=== PATIENT | female | born 1935 | race Caucasian/White ===

== ENCOUNTER 2023-11-04 11:46 | Emergency (ER) | payer MEDICARE, BC, SELFPAY ==
[2023-11-04 11:50] VITALS: BP 162/78; PULSE 68; RESP 16; TEMP 35.7; O2SAT 97; BMI 26.0
--- NOTE | 2023-11-04 12:48 | ED_ITS ---
HPI - Abdominal Pain General Chief Complaint: Abdominal Pain Stated Complaint: Lower R abdominal/side/back pain Time Seen by Provider: 11/04/23 12:21 History of Present Illness HPI narrative: This 87-year-old female comes in to clinic today reporting pain in her right lower quadrant. She was sent here for further evaluation. She states that she has been having pain on and off like this for the past several months but it has become more intense and constant over the past day or so. She also reports some discomfort in her right flank area. She does not report any nausea, vomiting, diarrhea, dysuria, fever, or altered bowel function. She arrives with reassuring vital signs. Related Data Home Medications ?Medication ?Instructions ?Recorded ?Confirmed amlodipine 10 mg tablet mg PO DAILY 03/03/22 03/03/22 atorvastatin 10 mg tablet mg PO .Bedtime 03/03/22 03/03/22 cholecalciferol (vitamin D3) 25 25 mcg PO QDAY 03/03/22 11/04/23 mcg (1,000 unit) tablet (Vitamin D3) ferrous sulfate 325 mg (65 mg mg PO DAILY 03/03/22 03/03/22 iron) tablet fexofenadine 60 mg tablet 60 mg PO BID 03/03/22 11/04/23 ibandronate 150 mg tablet 150 mg PO .Every 30 Days 03/03/22 11/04/23 lidocaine 5 % topical patch 1 patch topical .Every 24 Hours 03/03/22 03/03/22 lisinopril 40 mg tablet mg PO .Bedtime 03/03/22 03/03/22 metoprolol succinate 200 mg mg PO DAILY 03/03/22 03/03/22 tablet,extended release 24 hr omeprazole 20 mg capsule,delayed mg PO DAILY 03/03/22 03/03/22 release vitamin B complex 1 cap PO QDAY 03/03/22 03/03/22 vitamin E mixed 400 unit capsule unit PO 03/03/22 03/03/22 Allergies Allergy/AdvReac Type Severity Reaction Status Date / Time ibuprofen AdvReac Gastrointestinal Verified 11/04/23 14:07 Upset Review of Systems Status of ROS Reports: 10 or more systems reviewed and unremarkable except as noted in History and below Narrative Constitutional: No fevers, no weight gain or loss. Eyes: No discharge. No vision changes. HENT: No congestion, no sore throat, no ear pain. Cardiovascular: No chest pain, no palpitations. Respiratory: No shortness of breath, no wheezes, no cough. Gastrointestinal: No vomiting, no diarrhea. Abdominal pain and right flank pain as described above. Genitourinary: No dysuria, no hematuria. Musculoskeletal: Normal range of motion. Skin: No rashes, no pruritis. Neurological: No dizziness, weakness, sensory change, speech change. Endo/Heme/Allergies: No bruising or bleeding. No polydipsia. Pysch: no suicidality, no anxiety, no insomnia. All other systems reviewed and are negative. [facility] Medical History (Updated 11/04/23 @ 15:09 by Jacob Chang MD) Ventricular premature beats ?I49.3 - Ventricular premature depolarization (ICD-10) Uncontrolled hypertension ?I10 - Essential (primary) hypertension (ICD-10) Iron deficiency anemia ?D50.9 - Iron deficiency anemia, unspecified (ICD-10) Hyponatremia ?E87.1 - Hypo-osmolality and hyponatremia (ICD-10) Compression fracture of L3 vertebra ?S32.030A - Wedge compression fracture of third lumbar vertebra, initial encounter for closed fracture (ICD-10) Surgical History (Updated 03/04/22 @ 15:19 by Mena Michelle ~ [facility], [facility]) Status post arthroscopic partial medial meniscectomy (02/10/05) ?Z98.890 - Other specified postprocedural states (ICD-10) S/P trigger finger release (02/28/09) ?Z98.890 - Other specified postprocedural states (ICD-10) 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) ?Z96.652 - Presence of left artificial knee joint (ICD-10) Social History (Updated 03/04/22 @ 15:18 by Mena Michelle ~ [facility], [facility]) Smoking Status: Former smoker What tobacco products do you use: cigarettes Smoking quit date/years: >15 years ago Do you use any of these nicotine containing products: None Second hand tobacco smoke exposure: No How often do you have a drink containing alcohol: never AUDIT-C Alcohol total score: 0 Non-prescribed substance use: denies use Exam Narrative: Exam Narrative: Constitutional: Well-developed, well-nourished, no acute distress. HEENT: Normocephalic, atraumatic. Neck: Normal range of motion. Nontender. Supple. Heart: Regular. No murmurs. Normal rate. Intact distal pulses. Lungs: Clear to auscultation. No chest discomfort. No wheezes, rhonchi, or rales. Abdomen: Normal bowel sounds. Tenderness in the right lower quadrant. No rebound tenderness. Genitalia: Deferred. Back: No midline tenderness. Normal range of motion. Extremities: Normal range of motion. No injury. Skin: Intact. No rash. Warm. No erythema or pallor. Neurologic: No altered sensation. No weakness. Alert and oriented. Psychiatric: No suicidality. No anxiety or depression. No insomnia. Nursing notes and vitals signs are reviewed. Const: Vital Signs, click to edit/add: Vital Signs - 24 hr 11/04/23 11:50 Temperature 96.3 F L Pulse Rate [Left P ulse Oximeter] 68 Respiratory Rate 16 Blood Pressure [Le ft Upper Arm] 162/78 H Pulse Oximetry 97 Oxygen Delivery Me thod Room Air Course Vital Signs Vital signs: Initial Vital Signs Temperature 96.3 F L 11/04/23 11:50 Temperature Source Temporal Artery Scan 11/04/23 11:50 Pulse Rate 68 11/04/23 11:50 Pulse Rhythm Regular 11/04/23 11:50 Pulse Strength 3+ Normal 11/04/23 11:50 Respiratory Rate 16 11/04/23 11:50 Blood Pressure 162/78 H 11/04/23 11:50 Blood Pressure Mean 106 H 11/04/23 11:50 Blood Pressure Position Sitting 11/04/23 11:50 Pulse Oximetry 97 11/04/23 11:50 Oxygen Delivery Method Room Air 11/04/23 11:50 Vital Signs Temperature 96.3 F L 11/04/23 11:50 Pulse Rate 68 11/04/23 11:50 Respiratory Rate 16 11/04/23 11:50 Blood Pressure 162/78 H 11/04/23 11:50 Pulse Oximetry 97 11/04/23 11:50 Oxygen Delivery Method Room Air 11/04/23 11:50 Temperature 96.3 F L 11/04/23 11:50 Pulse Rate 68 11/04/23 11:50 Respiratory Rate 16 11/04/23 11:50 Blood Pressure 162/78 H 11/04/23 11:50 Pulse Oximetry 97 11/04/23 11:50 Oxygen Delivery Method Room Air 11/04/23 11:50 MDM - Abdominal Pain MDM Narrative Medical decision making narrative: This patient comes in with right lower quadrant abdominal pain as described above. An IV was established and CT images are obtained. Lab results also or obtained and these returned with normal findings. Her CT scan however shows evidence of a solid mass in the right lower quadrant suspicious for colon cancer. There does not appear to be any direct spread or distant spread on this initial CT imaging. I did contact the surgeon on-call, Dr. Lewis, who recommended colonoscopy for further information from biopsy and staging of the tumor. I did place an order for a colonoscopy and advised the patient to contact her primary physician for ongoing management regarding these matters. The patient states that she is okay to take Tylenol which is sufficient to manage her episodes of discomfort. I did advise her to return if worsening symptoms happen. Lab Data Labs: Lab Results 11/04/23 11/04/23 Range/Units 12:44 13:05 WBC 6.76 (4.50-11.00) K/uL RBC 4.73 (4.00-5.20) m/uL Hgb 12.9 (12.0-16.0) gm/dL Hct 40.3 (33.0-51.0) % MCV 85 (80-100) fL MCH 27 (26-34) pg MCHC 32 (32-36) gm/dL RDW Coeff of [place] 13.3 (11.5-15.5) % Plt Count 295 (140-440) K/uL Neut % (Auto) 69.5 (42.0-72.0) % Lymph % (Auto) 15.7 L (20-44) % Cameron % (Auto) 7.1 (0.0-11.0) % Eos % (Auto) 6.7 (0.0-7.0) % Baso % (Auto) 0.9 (0.0-3.0) % Neut # (Auto) 4.70 (1.7-7.0) K/uL Lymph # (Auto) 1.10 (0.90-2.90) K/uL Cameron # (Auto) 0.50 (0.00-0.90) K/UL Eos # (Auto) 0.45 (0.00-0.50) K/uL Baso # (Auto) 0.06 (0.00-0.30) K/uL Abs Immat Gran (auto) 0.01 (0.00-0.30) K/uL Imm/Tot Granulo (auto) 0.1 % Sodium 137 (135-149) mmol/L Potassium 3.8 (3.6-5.1) mmol/L Chloride 103 (96-114) mmol/L Carbon Dioxide 28 (20-32) mmol/L Anion Gap 6 L (7-15) mEq/L BUN 15 (7-30) mg/dL Creatinine 0.8 (0.5-1.5) mg/dL Estimated Creat Clear 37.80 Estimated GFR 72 ml/min Glucose 102 (60-115) mg/dL Calcium 9.4 (8.4-10.6) mg/dL Urine Color Dark yellow (Yellow) Urine Appearance Clear (Clear) Urine pH 6.0 (5.0-8.5) Ur Specific [place] 1.015 (1.000-1.030) Urine Protein Negative (Negative) Urine Glucose (UA) Negative (Negative) Urine Ketones Negative (Negative) Urine Blood Negative (Negative) Urine Nitrite Negative (Negative) Urine Bilirubin Negative (Negative) Urine Urobilinogen 0.2 (0.2-1.0) Ur Leukocyte Esterase Negative (Negative) Urine RBC 0-2 (0-2) Urine WBC 0-2 (0-5) Ur Squamous Epith Cells Few (None-Few) Urine Bacteria None (None) Imaging Data CT scan - abdomen: Radiologist's impression: 1. Solid enhancing cecal mass consistent with a primary colon cancer. No perforation. 2. Mildly inflamed appendix may be due to secondary obstruction from the cecal mass. 3. Mesenteric adenopathy. 4. Single nonspecific 3 millimeter lung nodule. 5. Enlarging 10 millimeter low-density lesion in the pancreatic head. There is another stable low-density/cystic pancreatic lesion. If further clarification is needed, recommend MR abdomen. Discharge Plan Discharge Clinical Impression: Colon cancer, Abdominal pain Patient Disposition: Home, Self-Care Condition: Unchanged Additional Instructions: Follow-up with primary physician for ongoing management. Colonoscopy is necessary for biopsy and staging. Return if worsening. Prescriptions: No Action ibandronate 150 mg tablet 150 mg PO .Every 30 Days lisinopril 40 mg tablet PO .Bedtime omeprazole 20 mg capsule,delayed release(DR/EC) PO DAILY ferrous sulfate 325 mg (65 mg iron) tablet PO DAILY amlodipine 10 mg tablet PO DAILY metoprolol succinate 200 mg tablet extended release 24 hr PO DAILY atorvastatin 10 mg tablet PO .Bedtime fexofenadine 60 mg tablet 60 mg PO BID vitamin E mixed 400 unit capsule PO cholecalciferol (vitamin D3) [Vitamin D3] 25 mcg (1,000 unit) tablet 25 mcg PO QDAY vitamin B complex Capsule 1 cap PO QDAY lidocaine 5 % adhesive patch,medicated 1 patch topical .Every 24 Hours Follow Up/Referrals: Angela Mott DO [Primary Care Provider] - Stand Alone Forms: [facility] Info Instructions
--- NOTE | 2023-11-04 12:48 | CRLHL7_ITS ---
For Patients: As a result of the 21st Century Cures Act, medical imaging exams and procedure reports are released immediately into your electronic medical record. You may view this report before your referring provider. If you have questions, please contact your health care provider. INDICATION: Right lower quadrant pain for 2 months, now more frequent and severe. COMPARISON: 06/08/1921 TECHNIQUE: CT of the abdomen and pelvis with intravenous contrast. Multiplanar axial, coronal, and sagittal reformats were reconstructed. Contrast: 79 mL Isovue 370. FINDINGS: Lung bases: There is a 3 millimeter subpleural right lower lobe nodule on series 3, image 3. This is unchanged since the prior exam. There is a 3 millimeter subpleural nodule in the right lower lobe on series 3, image 19. That was not definitely seen previously. Liver: Normal. No mass. Gallbladder and bile ducts: Cholecystectomy. [place] effect biliary ductal dilatation with smooth tapering down towards the ampulla. Pancreas: 7 x 10 millimeter low-density lesion in the pancreatic head. This may have been previously present but is much larger on this exam. Very well-circumscribed 1.8 x 2.1 centimeter fluid density lesion in the posterior superior pancreatic head. This is stable since the previous exam. Normal pancreatic parenchymal enhancement. No pancreatitis. The pancreatic duct is not dilated. Spleen: Normal. Adrenal glands: Normal. Kidneys: Normal parenchyma. There is a 5.5 centimeter right renal simple cyst. There is a 3.8 centimeter left renal simple cysts. No solid renal mass. No calculi. No urinary tract dilation. Urinary bladder: Fairly filled at the time of the exam. Pelvis: Senescent appearance of the uterus and both ovaries. Vessels: Atherosclerotic vascular calcifications. Patent mesenteric vessels. Bowel: There is a solid enhancing cecal mass that measures 5.5 x 6.0 x 5.4 centimeters. The appendix is mildly dilated and fluid-filled. There is adjacent inflammatory stranding. There are numerous adjacent enlarged lymph nodes including a large lymph node that is partially necrotic. This lymph node measures 3.6 x 1.9 centimeters on series 2, image 71.. No dilated or inflamed small bowel. Distal colonic diverticulosis without diverticulitis. There is a moderate-sized rectal stool ball. Lymph nodes: Right lower quadrant mesenteric metastatic adenopathy. No gastrohepatic, periportal, retroperitoneal, pelvic, or inguinal adenopathy. Peritoneum: No ascites. No free air. Abdominal wall: No hernia. Bones: No fractures. No focal worrisome bone lesions. Advanced degenerative change in the lumbar spine. IMPRESSION: 1. Solid enhancing cecal mass consistent with a primary colon cancer. No perforation. 2. Mildly inflamed appendix may be due to secondary obstruction from the cecal mass. 3. Mesenteric adenopathy. 4. Single nonspecific 3 millimeter lung nodule. 5. Enlarging 10 millimeter low-density lesion in the pancreatic head. There is another stable low-density/cystic pancreatic lesion. If further clarification is needed, recommend MR abdomen. Please note that all CT scans at this facility use dose modulation, iterative reconstruction, and/or weight-based dosing when appropriate to reduce radiation dose to as low as reasonably achievable. Dictated by Mell Gifford MD @ 11/04/2023 2:22:01 PM (Electronically Signed)
[2023-11-04 12:51] LABS: Appearance Urine Clear (Clear); Bilirubin Urine Negative (Negative); Blood Urine Negative (Negative); Color Urine Dark yellow (Yellow); Glucose Urine Negative (Negative); Ketones Urine Negative (Negative); Leukocyte Esterase Urine Negative (Negative); Nitrite Urine Negative (Negative); Protein Urine Negative (Negative); Specific Gravity Urine 1.015 (1.000-1.030); Urobilinogen Urine 0.2 (0.2-1.0)
[2023-11-04 13:07] LABS: RBC Urine 0-2 (0-2); Squamous Epithelial Cell Urine Few (None-Few); WBC Urine 0-2 (0-5)
[2023-11-04 13:14] LABS: Basophils Absolute Auto 0.06 K/uL (0.00-0.30); Basophils Percent Auto 0.9 % (0.0-3.0); Eosinophils Absolute Auto 0.45 K/uL (0.00-0.50); Eosinophils Percent Auto 6.7 % (0.0-7.0); Hematocrit 40.3 % (33.0-51.0); Hemoglobin* 12.9 gm/dL (12.0-16.0); Immature Granulocytes Abs Auto 0.01 K/uL (0.00-0.30); Immature Granulocytes Pct Auto 0.1 %; Lymphocytes Percent Auto 15.7 % (20-44); Mean Corpuscular HGB Conc 32 gm/dL (32-36); Mean Corpuscular Hemoglobin 27 pg (26-34); Mean Corpuscular Volume 85 fL (80-100); Monocytes Percent Auto 7.1 % (0.0-11.0); Neutrophils Percent Auto 69.5 % (42.0-72.0); Platelet Count* 295 K/uL (140-440); RDW Coefficient of Variation % 13.3 % (11.5-15.5); Red Blood Count 4.73 m/uL (4.00-5.20); White Blood Count* 6.76 K/uL (4.50-11.00)
[2023-11-04 13:16] LABS: Slide Review Reflex No
[2023-11-04 13:26] LABS: Chloride* 103 mmol/L (96-114); Potassium* 3.8 mmol/L (3.6-5.1); Sodium* 137 mmol/L (135-149)
[2023-11-04 13:29] LABS: Anion Gap 6 mEq/L (7-15); Blood Urea Nitrogen* 15 mg/dL (7-30); Calcium* 9.4 mg/dL (8.4-10.6); Carbon Dioxide* 28 mmol/L (20-32); Creatinine* 0.8 mg/dL (0.5-1.5); Estimated Glomerular Filt Rate 72 ml/min; Glucose* 102 mg/dL (60-115)
[2023-11-04 15:26] VITALS: PULSE 69; O2SAT 97
== END 2023-11-04 15:28 | disposition home or self-care (01) ==
PROVIDERS: Emergency Provider Emergency Medicine Emergency Medical Services; PCP Family Medicine
DX: R10.9 Unspecified abdominal pain (principal); C18.9 Malignant neoplasm of colon, unspecified
CPT/HCPCS: 36415; 74177; 80048; 81001; 85025; 99284; 99285; Q9967

== ENCOUNTER 2023-11-11 09:17 | Inpatient (IN) | payer MEDICARE, BC, SELFPAY ==
[2023-11-11] VITALS (7 sets, daily range): BP systolic 153–180; BP diastolic 76–92; PULSE 72–100; RESP 14–20; TEMP 36.3–37; O2SAT 93–98; BMI 26.6; BMI 27.1
[2023-11-11] MEDS: LACTATED RINGERS 1000 ML 1,000 ML IV (10:14)
--- NOTE | 2023-11-11 10:14 | ED_ITS ---
HPI - General Adult General Date Seen: 11/11/23 Chief complaint: Constipation Stated complaint: Abd pain back pain Time Seen by Provider: 11/11/23 09:21 Source: patient Mode of arrival: ambulatory Limitations: no limitations History of Present Illness HPI narrative: Patient is an 87-year-old female presenting to the emergency department for constipation. She states she has not been able to have a normal bowel movement for 2 weeks. She noticed a large amount blood in her stool 2 weeks ago. Had another bowel movement this past Wednesday that she states was small and no blood was seen at that time. She was seen in the ED initially a few weeks ago for this constipation and possible colon cancer was seen on CT scan. It was recommended she have a colonoscopy per General surgery. She is post have this done 2 days ago but was unable to due to nausea and unable to hold down any solids or liquids. She saw her primary care provider at that time and has her new colonoscopy scheduled for this upcoming Wednesday. She states she was recently started some new all stool softeners but does remember what they were. Does states she has been taking stool softeners for an extended period of time due to history of constipation in the past. Also feels like her abdomen is more bloated than normal. Denies fevers, chills, chest pain, shortness of breath, headache, vision changes, weakness, numbness. Related Data Home Medications ?Medication ?Instructions ?Recorded ?Confirmed amlodipine 10 mg tablet 10 mg PO DAILY 03/03/22 11/11/23 atorvastatin 10 mg tablet 10 mg PO HS 03/03/22 11/11/23 cholecalciferol (vitamin D3) 25 25 mcg PO DAILY 03/03/22 11/11/23 mcg (1,000 unit) tablet (Vitamin D3) ferrous sulfate 325 mg (65 mg 65 mg PO DAILY 03/03/22 11/11/23 iron) tablet ibandronate 150 mg tablet 150 mg PO .Every 30 Days 03/03/22 11/11/23 lisinopril 40 mg tablet 40 mg PO DAILY 03/03/22 11/11/23 metoprolol succinate 200 mg 200 mg PO DAILY 03/03/22 11/11/23 tablet,extended release 24 hr omeprazole 20 mg capsule,delayed 20 mg PO DAILY 03/03/22 11/11/23 release fexofenadine 180 mg tablet 180 mg PO DAILY 11/11/23 11/11/23 (Allergy Relief (fexofenadine)) ondansetron 4 mg disintegrating 4 mg PO Q8H PRN nausea 11/11/23 11/11/23 tablet polyethylene glycol 3350 17 8.5 g PO DAILY 11/11/23 11/11/23 gram/dose oral powder tramadol 50 mg tablet 50 mg PO BID PRN pain 11/11/23 11/11/23 Allergies Allergy/AdvReac Type Severity Reaction Status Date / Time ibuprofen AdvReac Gastrointestinal Verified 11/11/23 09:32 Upset Review of Systems Status of ROS: Reports: 10 or more systems reviewed and unremarkable except as noted in History and below [facility] Medical History (Updated 11/12/23 @ 11:10 by Laurel Macias PA-C) GERD (gastroesophageal reflux disease) ?K21.9 - Gastro-esophageal reflux disease without esophagitis (ICD-10) Hyperlipidemia ?E78.5 - Hyperlipidemia, unspecified (ICD-10) Pancreatic lesion ?K86.9 - Disease of pancreas, unspecified (ICD-10) Colonic mass ?K63.89 - Other specified diseases of intestine (ICD-10) Ventricular premature beats ?I49.3 - Ventricular premature depolarization (ICD-10) Uncontrolled hypertension ?I10 - Essential (primary) hypertension (ICD-10) Hyponatremia ?E87.1 - Hypo-osmolality and hyponatremia (ICD-10) Compression fracture of L3 vertebra ?S32.030A - Wedge compression fracture of third lumbar vertebra, initial encounter for closed fracture (ICD-10) Surgical History (Updated 11/11/23 @ 14:45 by Hortensia Polo MD) S/P laparoscopic cholecystectomy ?Z90.49 - Acquired absence of other specified parts of digestive tract (ICD- 10) Status post arthroscopic partial medial meniscectomy (02/10/05) ?Z98.890 - Other specified postprocedural states (ICD-10) S/P trigger finger release (02/28/09) ?Z98.890 - Other specified postprocedural states (ICD-10) 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 Patient lives independently and does all of her housework at home by herself. nonsmoker (quit at age 29), nondrinker (save a glass of wine at [employer]). 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 What is your current living situation?: I presently have a place to live Problems where you live: no known problems Problems where you live details: No known problems In the past 12 months, utilities in danger of being shut off: no In past 12 months, lack of transportation kept you from medical appts, meetings, work, or getting things needed for daily living: no In the past 12 mos, have been you worried that your food would run out before you had money to buy more?: never true In the past 12 mos, the food you bought just didn't last and you didn't have money to buy more?: never true Highest level of school completed/degree received: high school graduate Smoking Status: Former smoker What tobacco products do you use: cigarettes Smoking quit date/years: >15 years ago Do you use any of these nicotine containing products: None Second hand tobacco smoke exposure: No How often do you have a drink containing alcohol: never How often do you have six or more drinks on one occasion: Never AUDIT-C Alcohol total score: 0 Non-prescribed substance use: denies use Caffeine: Yes How often does anyone, including family, friends and others, physically hurt you : never How often does anyone, including family, friends and others, insult or talk down to you: never How often does anyone, including family, friends and others, threaten you with harm: never How often does anyone, including family, friends and others, scream or curse at you: never service: No Exam Narrative: Exam Narrative: Const: Well-nourished, Well-developed, in mild distress Eyes: PERRL, no conjunctival injection, and symmetrical lids HENT: Atraumatic external nose and ears. Moist mucous membranes. Neck: Symmetric, trachea midline, No thyromegaly. CVS: RRR, No murmurs or gallops. Peripheral pulses 2+ and equal in all extremities RESP: Unlabored respiratory effort. Clear to auscultation bilaterally. GI: Nontender/Nondistended, No rebound or guarding. MSK:Extremities w/o deformity, Normal Active ROM Skin: Warm, Dry. No rashes or lesions. Neuro: Normal Muscle tone, No focal neurological deficits. Psych: Awake, Alert, & Oriented x3. Appropriate mood and affect. Const: Vital Signs, click to edit/add: Vital Signs - 24 hr 11/11/23 09:23 Temperature 98.6 F Pulse Rate [Right Pulse Oximeter] 88 Respiratory Rate 14 Blood Pressure [Ri ght Upper Arm] 180/90 H Pulse Oximetry 98 Oxygen Delivery Me thod Room Air Course Vital Signs Vital signs: Initial Vital Signs Temperature 98.6 F 11/11/23 09:23 Temperature Source Temporal Artery Scan 11/11/23 09:23 Pulse Rate 88 11/11/23 09:23 Respiratory Rate 14 11/11/23 09:23 Blood Pressure 180/90 H 11/11/23 09:23 Blood Pressure Mean 120 H 11/11/23 09:23 Blood Pressure Position Sitting 11/11/23 09:23 Pulse Oximetry 98 11/11/23 09:23 Oxygen Delivery Method Room Air 11/11/23 09:23 Vital Signs Temperature 98.6 F 11/11/23 09:23 Pulse Rate 88 11/11/23 09:23 Respiratory Rate 14 11/11/23 09:23 Blood Pressure 180/90 H 11/11/23 09:23 Pulse Oximetry 98 11/11/23 09:23 Oxygen Delivery Method Room Air 11/11/23 09:23 Temperature 96.8 F L 11/12/23 14:50 Pulse Rate 67 11/12/23 14:50 Respiratory Rate 18 11/12/23 14:50 Blood Pressure 141/75 H 11/12/23 14:50 Pulse Oximetry 93 11/12/23 14:50 Oxygen Delivery Method Room Air 11/12/23 14:50 Oxygen Flow Rate 0 11/12/23 12:35 Medications Administered Medications: Generic Name Dose Route Start Last Admin Trade Name Freq PRN Reason Stop Dose Admin Acetaminophen 650 - 975 mg 11/11/23 14:33 11/11/23 21:55 Acetaminophen 325 Mg Tablet PO 975 mg Q6H PRN Administration Amlodipine Besylate 10 mg 11/11/23 15:15 11/12/23 07:27 Amlodipine 10 Mg Tablet PO 10 mg DAILY NIALL Administration Lactated Ringer's 1,000 mls @ 100 mls/hr 11/11/23 14:33 11/12/23 01:36 Lactated Ringers 1000 Ml IV 100 mls/hr .Q10H NIALL Administration Lisinopril 40 mg 11/11/23 15:15 11/12/23 07:27 Lisinopril 20 Mg Tablet PO 40 mg DAILY NIALL Administration Metoprolol Succinate 200 mg 11/11/23 15:54 11/12/23 07:27 Metoprolol Succinate (Xl) 100 Mg Tab PO 200 mg DAILY NIALL Administration Morphine Sulfate 4 mg 11/11/23 15:15 11/12/23 14:37 Morphine 4 Mg/Ml Inj IVP 4 mg Q4H PRN Administration abdominal pain Sodium Chloride 5 ml 11/11/23 21:00 11/12/23 07:31 Sodium Chloride 0.9 % (Flush) 10 Ml Syringe IVF 5 ml BID NIALL Administration Discontinued Medications Generic Name Dose Route Start Last Admin Trade Name Karriq PRN Reason Stop Dose Admin Bupivacaine HCl 30 ml 11/12/23 09:39 11/12/23 09:08 Bupivacaine 0.25% 30 Ml INJECTION 11/12/23 09:40 10 ml ONCE ONE Administration Ertapenem 1 gm 11/12/23 08:53 11/12/23 08:53 Ertapenem 1 Gm Inj IVPB 11/12/23 08:54 1 gm ONCE ONE Administration Fentanyl 50 mcg 11/12/23 08:53 11/12/23 12:18 Fentanyl 100 Mcg/2 Ml Inj IVP 50 mcg Q5M PRN Administration Pain Lactated Ringer's 1,000 mls @ 1,000 mls/hr 11/11/23 09:47 11/11/23 11:12 Lactated Ringers 1000 Ml IV 11/11/23 10:46 Infused .Q1H ONE Infusion Lactated Ringer's 1,000 mls @ 100 mls/hr 11/12/23 08:55 11/12/23 12:24 Lactated Ringers 1000 Ml IV Infused .Q10H NIALL Infusion Morphine Sulfate 4 mg 11/11/23 14:00 11/11/23 14:15 Morphine 4 Mg/Ml Inj IVP 11/11/23 14:01 4 mg ONCE ONE Administration Omeprazole 40 mg 11/11/23 15:12 11/11/23 16:07 Omeprazole [address] PO 11/11/23 15:13 40 mg ONCE ONE Administration Potassium Chloride 40 meq 11/12/23 08:00 11/12/23 07:28 Potassium Chloride 10 Meq Capsule Er PO 11/12/23 08:01 40 meq ONCE ONE Administration Medical Decision Making MDM Narrative Medical decision making narrative: Patient is an 87 year female presenting to emergency department for constipation. She does have a history of a concerning CT scan for colon cancer. Was supposed to get colonoscopy will unable to tolerate the bowel cleanout regimen. I will repeat a CT scan at this time to look for signs of a small- bowel obstruction. Also ordered CBC, magnesium, CMP, lipase, EKG, troponin, urinalysis. She is feeling dehydrated and of L of fluids was given. No pain medication required at this time. Lab Data Labs: Lab Results 11/11/23 11/11/23 Range/Units 10:09 13:13 WBC 10.06 (4.50-11.00) K/uL RBC 4.83 (4.00-5.20) m/uL Hgb 13.3 (12.0-16.0) gm/dL Hct 40.0 (33.0-51.0) % MCV 83 (80-100) fL MCH 28 (26-34) pg MCHC 33 (32-36) gm/dL RDW Coeff of [place] 13.2 (11.5-15.5) % Plt Count 385 (140-440) K/uL Neut % (Auto) 87.0 H (42.0-72.0) % Lymph % (Auto) 5.9 L (20-44) % [place] % (Auto) 6.3 (0.0-11.0) % Eos % (Auto) 0.2 (0.0-7.0) % Baso % (Auto) 0.4 (0.0-3.0) % Neut # (Auto) 8.80 H (1.7-7.0) K/uL Lymph # (Auto) 0.60 L (0.90-2.90) K/uL [place] # (Auto) 0.60 (0.00-0.90) K/UL Eos # (Auto) 0.02 (0.00-0.50) K/uL Baso # (Auto) 0.04 (0.00-0.30) K/uL Abs Immat Gran (auto) 0.02 (0.00-0.30) K/uL Imm/Tot Granulo (auto) 0.2 % Sodium 132 L (135-149) mmol/L Potassium 3.5 L (3.6-5.1) mmol/L Chloride 94 L (96-114) mmol/L Carbon Dioxide 28 (20-32) mmol/L Anion Gap 10 (7-15) mEq/L BUN 13 (7-30) mg/dL Creatinine 0.7 (0.5-1.5) mg/dL Estimated Creat Clear 36.34 Estimated GFR 84 ml/min Glucose 122 H (60-115) mg/dL Calcium 9.3 (8.4-10.6) mg/dL Magnesium 2.0 (1.5-2.6) mg/dL Total Bilirubin 1.3 (0.1-1.5) mg/dL AST 34 (12-35) U/L ALT 23 (4-35) U/L Alkaline Phosphatase 82 (40-150) U/L Troponin I < 0.01 L (0.01-0.04) ng/mL Total Protein 7.8 (6.0-8.3) g/dL Albumin 4.7 (3.3-5.0) g/dL Lipase 104 (23-300) U/L Lab Acknowledgement Test Added ECG Data Attestation: I personally reviewed and interpreted this ECG as follows: Prior ECG tracings: not available for review Interpretation: Normal sinus rhythm with a rate 91 beats per minute, normal intervals, left axis deviation, no ST or T-wave abnormalities Discharge Plan Discharge Patient Disposition: Admitted As Observation
--- NOTE | 2023-11-11 10:21 | CRLHL7_ITS ---
For Patients: As a result of the Century Cures Act, medical imaging exams and procedure reports are released immediately into your electronic medical record. You may view this report before your referring provider. If you have questions, please contact your health care provider. Indication: Constipation and bloating Technique: CT abdomen/pelvis with IV contrast, 75 mL Isovue 370 Comparison: CT abdomen/pelvis on November 04, 2023 Findings: Lung bases: Stable 3 millimeter subpleural right lower lobe nodule on series 3, image 3. Previously visualized 3 millimeter subpleural nodule in the medial right lower lobe on prior examination is not seen on this exam. Liver: Normal. No mass. Gallbladder and bile ducts: Cholecystectomy. [place] effect biliary ductal dilatation with smooth tapering down towards the ampulla. Pancreas: Similar-appearing 7 x 10 millimeter low-density lesion in the pancreatic head. Stable well-circumscribed 1.8 x 2.1 centimeter fluid density lesion in the posterior superior pancreatic head. Normal pancreatic parenchymal enhancement. No pancreatitis. The pancreatic duct is not dilated. Spleen: Normal. Adrenal glands: Normal. Kidneys: Normal parenchyma. Stable simple appearing renal cysts. No solid renal mass. No calculi. No urinary tract dilation. Urinary bladder: Unremarkable. Pelvis: Senescent appearance of the uterus and both ovaries. Vessels: Atherosclerotic vascular calcifications. Patent mesenteric vessels. Bowel: There is redemonstration of a solid enhancing cecal mass that measures up to 2 centimeters. The appendix is within normal limits in appearance. There are numerous adjacent enlarged lymph nodes including a large lymph node that is partially necrotic measuring up to 3.6 centimeters. No dilated or inflamed small bowel. Distal colonic diverticulosis without diverticulitis. Lymph nodes: Right lower quadrant mesenteric metastatic adenopathy. No gastrohepatic, periportal, retroperitoneal, pelvic, or inguinal adenopathy. Peritoneum: No ascites. No free air. Abdominal wall: No hernia. Bones: No fractures. No suspicious osseous lesions. Advanced degenerative change in the lumbar spine. Impression: 1. No CT evidence of an acute process involving the abdomen or pelvis. 2. Solid enhancing cecal mass consistent with a primary colon cancer with mesenteric adenopathy. 3. Stable pancreatic lesions. Please note that all CT scans at this facility use dose modulation, iterative reconstruction, and/or weight-based dosing when appropriate to reduce radiation dose to as low as reasonably achievable. Dictated by Rosales Hester MD @ 11/11/2023 12:10:05 PM (Electronically Signed)
[2023-11-11 10:29] LABS: Basophils Absolute Auto 0.04 K/uL (0.00-0.30); Basophils Percent Auto 0.4 % (0.0-3.0); Eosinophils Absolute Auto 0.02 K/uL (0.00-0.50); Eosinophils Percent Auto 0.2 % (0.0-7.0); Hemoglobin* 13.3 gm/dL (12.0-16.0); Immature Granulocytes Abs Auto 0.02 K/uL (0.00-0.30); Immature Granulocytes Pct Auto 0.2 %; Lymphocytes Percent Auto 5.9 % (20-44); Mean Corpuscular HGB Conc 33 gm/dL (32-36); Mean Corpuscular Hemoglobin 28 pg (26-34); Mean Corpuscular Volume 83 fL (80-100); Monocytes Percent Auto 6.3 % (0.0-11.0); Platelet Count* 385 K/uL (140-440); RDW Coefficient of Variation % 13.2 % (11.5-15.5); Red Blood Count 4.83 m/uL (4.00-5.20); White Blood Count* 10.06 K/uL (4.50-11.00)
[2023-11-11 10:31] LABS: Slide Review Reflex No
[2023-11-11 10:37] LABS: Albumin* 4.7 g/dL (3.3-5.0); Chloride* 94 mmol/L (96-114)
[2023-11-11 10:38] LABS: Potassium* 3.5 mmol/L (3.6-5.1); Sodium* 132 mmol/L (135-149)
[2023-11-11 10:40] LABS: Anion Gap 10 mEq/L (7-15); Aspartate Amino Transferase* 34 U/L (12-35); Bilirubin Total* 1.3 mg/dL (0.1-1.5); Carbon Dioxide* 28 mmol/L (20-32); Creatinine* 0.7 mg/dL (0.5-1.5); Est. Creatinine Clearance* 36.34; Estimated Glomerular Filt Rate 84 ml/min; Total Protein* 7.8 g/dL (6.0-8.3)
[2023-11-11 10:41] LABS: Alanine Aminotransferase* 23 U/L (4-35); Alkaline Phosphatase* 82 U/L (40-150); Blood Urea Nitrogen* 13 mg/dL (7-30); Calcium* 9.3 mg/dL (8.4-10.6); Glucose* 122 mg/dL (60-115); Lipase* 104 U/L (23-300)
[2023-11-11 10:54] LABS: Troponin I* < 0.01 ng/mL (0.01-0.04)
[2023-11-11 11:18] LABS: Appearance Urine Clear (Clear); Bilirubin Urine Negative (Negative); Blood Urine Negative (Negative); Color Urine Yellow (Yellow); Glucose Urine Negative (Negative); Ketones Urine 1+ (Negative); Leukocyte Esterase Urine Negative (Negative); Nitrite Urine Negative (Negative); Protein Urine Negative (Negative); Urobilinogen Urine 0.2 (0.2-1.0)
[2023-11-11 11:26] LABS: RBC Urine 0-2 (0-2); WBC Urine 0-2 (0-5)
--- NOTE | 2023-11-11 13:40 | P.GSCN_ITS ---
History of Present Illness Consult details Date Seen: 11/11/23 Consult date: 11/11/23 Narrative: 87-year-old female presented to emergency room with right-sided abdominal pain and I was asked to see her in consultation. Patient states that for the last 2- 3 months she has been having intermittent right lower quadrant abdominal pain. The pain is described as constant and radiating to her back. In the last couple weeks she had no appetite and her pain became more constant. She was seen in the emergency room an abdominal CT was obtained that showed a cecal mass concerning for colon cancer. Patient was then scheduled for colonoscopy and was supposed to have it last week. However, over the weekend patient was vomiting and had to cancel her colonoscopy. She states that in the last couple weeks she has been drinking minimal amount of liquids because she develops vomiting. In the last couple days she was supposed to drink her colonoscopy prep again but taking sips of liquids would make her feel nauseated and vomit. She states that in the last couple weeks she did not eat any solid food. Her last bowel movement was on Wednesday after taking laxatives prior to that. She is not sure if she had any weight loss. In the emergency room her laboratory findings showed normal WBC and normal hemoglobin. Her basic metabolic panel was normal with the exception of sodium of 132. An abdominal CT was repeated that showed cecal mass with less pericolonic inflammation the noted on previous CT 1 week ago. There was no dilated loops of large or small intestine. There was no evidence of acute appendicitis. Review of Systems Narrative: General: no fevers HENT: no problems swallowing CV: no shortness of breath Resp: no cough GI: No nausea, vomiting, abdominal pain : no dysuria, no increased urinary frequency, no hematuria Skin: no new rashes Musculoskeletal: no back pain Neuro: no muscle weakness Psyche: no depression, no anxiety PFSH PFSH Medical History Ventricular premature beats ?I49.3 - Ventricular premature depolarization (ICD-10) Uncontrolled hypertension ?I10 - Essential (primary) hypertension (ICD-10) Iron deficiency anemia ?D50.9 - Iron deficiency anemia, unspecified (ICD-10) Hyponatremia ?E87.1 - Hypo-osmolality and hyponatremia (ICD-10) Compression fracture of L3 vertebra ?S32.030A - Wedge compression fracture of third lumbar vertebra, initial encounter for closed fracture (ICD-10) Surgical History (Updated 11/11/23 @ 13:45 by Isaiah Vargas MD) S/P laparoscopic cholecystectomy ?Z90.49 - Acquired absence of other specified parts of digestive tract (ICD- 10) Status post arthroscopic partial medial meniscectomy (02/10/05) ?Z98.890 - Other specified postprocedural states (ICD-10) S/P trigger finger release (02/28/09) ?Z98.890 - Other specified postprocedural states (ICD-10) 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 Smoking Status: Former smoker What tobacco products do you use: cigarettes Smoking quit date/years: >15 years ago Do you use any of these nicotine containing products: None Second hand tobacco smoke exposure: No How often do you have a drink containing alcohol: never AUDIT-C Alcohol total score: 0 Non-prescribed substance use: denies use Meds Home Medications and Allergies Home Medications ?Medication ?Instructions ?Recorded ?Confirmed ?Type amlodipine 10 mg tablet mg PO DAILY 03/03/22 03/03/22 History atorvastatin 10 mg tablet mg PO .Bedtime 03/03/22 03/03/22 History cholecalciferol (vitamin D3) 25 25 mcg PO QDAY 03/03/22 11/11/23 History mcg (1,000 unit) tablet (Vitamin D3) ferrous sulfate 325 mg (65 mg 65 mg PO DAILY 03/03/22 11/11/23 History iron) tablet fexofenadine 60 mg tablet 60 mg PO BID 03/03/22 11/11/23 History ibandronate 150 mg tablet 150 mg PO .Every 30 Days 03/03/22 11/11/23 History lidocaine 5 % topical patch 1 patch topical .Every 24 Hours 03/03/22 03/03/22 History lisinopril 40 mg tablet mg PO .Bedtime 03/03/22 03/03/22 History metoprolol succinate 200 mg 200 mg PO DAILY 03/03/22 11/11/23 History tablet,extended release 24 hr omeprazole 20 mg capsule,delayed mg PO DAILY 03/03/22 03/03/22 History release vitamin B complex 1 cap PO QDAY 03/03/22 03/03/22 History vitamin E mixed 400 unit capsule unit PO 03/03/22 03/03/22 History Allergies Allergy/AdvReac Type Severity Reaction Status Date / Time ibuprofen AdvReac Gastrointestinal Verified 11/11/23 09:32 Upset Exam Narrative: Exam Narrative: General appearance: Alert, cooperative, and in no distress Pulmonary: Chest symmetric, lungs clear bilaterally Cardiovascular Heart: Regular rate and rhythm, S1, S2, possible extra beat at the left sternal border, no murmurs Gastrointestinal Abdominal: soft, protuberant, tender to palpation in the right lower quadrant with no peritoneal signs. Skin: Normal skin color, texture, and turgor. No rashes or lesions. Psychiatric: Alert, cooperative, normal affect. Const: Vital Signs, click to edit/add: Vital Signs - 24 hr 11/11/23 09:23 Temperature 98.6 F Pulse Rate [Right Pulse Oximeter] 88 Respiratory Rate 14 Blood Pressure [Ri ght Upper Arm] 180/90 H Pulse Oximetry 98 Oxygen Delivery Me thod Room Air Results Labs Labs: Abnormal lab results 11/11/23 11/11/23 Range/Units 10:09 Unknown Neut % (Auto) 87.0 H (42.0-72.0) % Lymph % (Auto) 5.9 L (20-44) % Neut # (Auto) 8.80 H (1.7-7.0) K/uL Lymph # (Auto) 0.60 L (0.90-2.90) K/uL Sodium 132 L (135-149) mmol/L Potassium 3.5 L (3.6-5.1) mmol/L Chloride 94 L (96-114) mmol/L Glucose 122 H (60-115) mg/dL Troponin I < 0.01 L (0.01-0.04) ng/mL Urine Ketones 1+ A (Negative) Diabetes panel 11/11/23 Range/Units 10:09 Sodium 132 L (135-149) mmol/L Potassium 3.5 L (3.6-5.1) mmol/L Chloride 94 L (96-114) mmol/L Carbon Dioxide 28 (20-32) mmol/L BUN 13 (7-30) mg/dL Creatinine 0.7 (0.5-1.5) mg/dL Glucose 122 H (60-115) mg/dL Calcium 9.3 (8.4-10.6) mg/dL AST 34 (12-35) U/L ALT 23 (4-35) U/L Alkaline Phosphatase 82 (40-150) U/L Total Protein 7.8 (6.0-8.3) g/dL Albumin 4.7 (3.3-5.0) g/dL Calcium panel 11/11/23 Range/Units 10:09 Calcium 9.3 (8.4-10.6) mg/dL Albumin 4.7 (3.3-5.0) g/dL Pituitary panel 11/11/23 Range/Units 10:09 Sodium 132 L (135-149) mmol/L Potassium 3.5 L (3.6-5.1) mmol/L Chloride 94 L (96-114) mmol/L Carbon Dioxide 28 (20-32) mmol/L BUN 13 (7-30) mg/dL Creatinine 0.7 (0.5-1.5) mg/dL Glucose 122 H (60-115) mg/dL Calcium 9.3 (8.4-10.6) mg/dL Adrenal panel 11/11/23 Range/Units 10:09 Sodium 132 L (135-149) mmol/L Potassium 3.5 L (3.6-5.1) mmol/L Chloride 94 L (96-114) mmol/L Carbon Dioxide 28 (20-32) mmol/L BUN 13 (7-30) mg/dL Creatinine 0.7 (0.5-1.5) mg/dL Glucose 122 H (60-115) mg/dL Calcium 9.3 (8.4-10.6) mg/dL Total Bilirubin 1.3 (0.1-1.5) mg/dL AST 34 (12-35) U/L ALT 23 (4-35) U/L Alkaline Phosphatase 82 (40-150) U/L Total Protein 7.8 (6.0-8.3) g/dL Albumin 4.7 (3.3-5.0) g/dL All other labs normal. Progress Note:A&P Assessment and plan (1) Abdominal pain: Status: Acute Assessment and Plan: 87-year-old female presents with right-sided abdominal pain and cecal mass concerning for colon cancer. I discussed with the patient and her daughter her laboratory and CT findings. I did discuss with the patient that her cecal mass is concerning for colon cancer. Since patient is unable to tolerate diet, I am concerned that she is nearly obstructed. She continues to pass gas once in a while. I do not think this patient will be able to undergo colonoscopy prep and subsequent colonoscopy. I recommended to proceed with laparoscopic right hemicolectomy. This will be planned for tomorrow. The procedure was discussed in detail. The risks associated with the procedure including infection, bleeding, injury to intra- abdominal organs, and anastomotic leak were all discussed with the patient. Patient will be admitted to the hospital today. We will have hospitalist see her for preoperative consultation. We will keep the patient NPO overnight. Patient's albumin was normal, will add prealbumin. We will also obtain CEA.
[2023-11-11] MEDS: MORPHINE 4 MG/ML INJ IVP (14:15)
--- NOTE | 2023-11-11 14:36 | P.IMHP_ITS ---
Hospitalist- H&P: HPI History of Present Illness Date Seen: 11/11/23 Chief complaint: Abd pain back pain Narrative: ADMISSION HISTORY AND PHYSICAL - HOSPITALIST Chief Complaint: Abdominal pain, known cecal mass, not tolerating p.o. HPI: 87-year-old female with a history of longstanding hypertension, hyperlipidemia, GERD presented to the ER with ongoing abdominal pain. She was seen on November 03 with 2 months of intermittent but worsening abdominal pain. She was diagnosed with a cecal mass and was set up for an outpatient colonoscopy with general surgery. Unfortunately after her ER visit and before her colonoscopy she developed vomiting and inability to reliably take p.o.. She said she has been sustained on clear liquids and broth. She still having bowel movements and feels a bit more distended than previous. No fever, bleeding from her rectum other than from hemorrhoids. Her abdominal pain seems to be decently managed with tramadol and Tylenol. She describes a deep ache in the RLQ that goes thru to her low back. Her vomiting is nonbilious, nonbloody. She reports a 5 lb weight loss over the last 2 weeks. She is in good spirits. ER COURSE: Repeat labs and abdominal CT. No acute findings other than now she has some mild ketonuria, hypokalemia and hyponatremia. CODE STATUS: Full code - as it relates to immediate surgery. Higher level view she acknowledges she is DNR DNI if she develops complications after surgery or down the road and would not like to be sustained on any life support. EMERGENCY CONTACT PLAN: Primary Contact Name Carmita Rhodes Rel To Pat Daughter Cell I've updated the PFSH, medications and allergies in the Expanse tabs. INVESTIGATIONS: LABS/MICRO/ECG/IMAGING Afebrile Mildly hypertensive Pulse rate 88-100 Respiratory rate 14 to 16 Pulse ox 98-95% on room air Reviewing labs from both November 03 and today November 10: CBC reflects a normal white blood cell count. Hemoglobin of 13. Normal platelets. Her sodium is mildly depressed at 132. Her potassium is slightly depressed at 3.5. Her chloride is 94. She has normal renal function. Normal bicarb. Her glucose is 122. Her magnesium is normal. Her LFTs are normal. Her troponin is undetectable. Her total protein is 7.8, albumin is 4.7, pre albumin has been ordered. Normal lipase. UA shows 1+ ketones this morning. CT abdomen pelvis, this is a repeat from on November [address]: [address] evidence of an acute process involving the abdomen or pelvis. 2. Solid enhancing cecal mass consistent with a primary colon cancer with mesenteric adenopathy. 3. Stable pancreatic lesions. November 03 IMPRESSION: 1. Solid enhancing cecal mass consistent with a primary colon cancer. No perforation. 2. Mildly inflamed appendix may be due to secondary obstruction from the cecal mass. 3. Mesenteric adenopathy. 4. Single nonspecific 3 millimeter lung nodule. 5. Enlarging 10 millimeter low-density lesion in the pancreatic head. There is another stable low-density/cystic pancreatic lesion. If further clarification is needed, recommend MR abdomen. EKG reviewed. Sinus. LVH. PVCs. REVIEW OF SYSTEMS: 12-point ROS completed with patient and negative unless otherwise stated in HPI or below. PHYSICAL EXAM: CONSTITUTIONAL: Conversive, good historian. A/O. Knows setting and context. VITAL SIGNS: see record. HEENT: Normocephalic, atraumatic. PERRL, EOMI, conjunctivae pink, no scleral icterus. Ears and nose externally normal. Pharynx normal. NECK: No JVD. No carotid bruit, no thyromegaly, no adenopathy. CHEST: Clear to auscultation bilaterally HEART: S1 and S2 normal. No harsh murmurs. Edema trace. MUSCULOSKELETAL: No gross joint deformity or swelling. ABDOMEN: soft, mild tenderness to palpation to the right lower quadrant. NEURO: Cranial nerves intact. Grossly intact. No asymmetric findings. SKIN: No rashes, petechiae, concerning changes PSYCHIATRIC: Euthymic. ADMIT TO MEDSURG: FLOOR CARE DVT: SCDs GI: oral PPI, NPO - consider IV PPI Time spent: Today I spent 75 minutes seeing the patient, discussing the patient with ER staff, reviewing Expanse and EPIC notes/diagnostics, discussing the care plan with our care time that includes social work, PT/OT, pharmacy, RT, custodial and documenting my impressions and plan in the medical record. [facility] Medical History (Updated 11/11/23 @ 16:42 by Hortensia Polo MD) GERD (gastroesophageal reflux disease) ?K21.9 - Gastro-esophageal reflux disease without esophagitis (ICD-10) Hyperlipidemia ?E78.5 - Hyperlipidemia, unspecified (ICD-10) Pancreatic lesion ?K86.9 - Disease of pancreas, unspecified (ICD-10) Colonic mass ?K63.89 - Other specified diseases of intestine (ICD-10) Ventricular premature beats ?I49.3 - Ventricular premature depolarization (ICD-10) Uncontrolled hypertension ?I10 - Essential (primary) hypertension (ICD-10) Hyponatremia ?E87.1 - Hypo-osmolality and hyponatremia (ICD-10) Compression fracture of L3 vertebra ?S32.030A - Wedge compression fracture of third lumbar vertebra, initial encounter for closed fracture (ICD-10) Surgical History (Updated 11/11/23 @ 14:45 by Hortensia Polo MD) S/P laparoscopic cholecystectomy ?Z90.49 - Acquired absence of other specified parts of digestive tract (ICD- 10) Status post arthroscopic partial medial meniscectomy (02/10/05) ?Z98.890 - Other specified postprocedural states (ICD-10) S/P trigger finger release (02/28/09) ?Z98.890 - Other specified postprocedural states (ICD-10) 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 Smoking Status: Former smoker What tobacco products do you use: cigarettes Smoking quit date/years: >15 years ago Do you use any of these nicotine containing products: None Second hand tobacco smoke exposure: No How often do you have a drink containing alcohol: never AUDIT-C Alcohol total score: 0 Non-prescribed substance use: denies use Meds Home Medications and Allergies Home Medications ?Medication ?Instructions ?Recorded ?Confirmed ?Type amlodipine 10 mg tablet 10 mg PO DAILY 03/03/22 11/11/23 History atorvastatin 10 mg tablet 10 mg PO HS 03/03/22 11/11/23 History cholecalciferol (vitamin D3) 25 25 mcg PO DAILY 03/03/22 11/11/23 History mcg (1,000 unit) tablet (Vitamin D3) ferrous sulfate 325 mg (65 mg 65 mg PO DAILY 03/03/22 11/11/23 History iron) tablet ibandronate 150 mg tablet 150 mg PO .Every 30 Days 03/03/22 11/11/23 History lisinopril 40 mg tablet 40 mg PO DAILY 03/03/22 11/11/23 History metoprolol succinate 200 mg 200 mg PO DAILY 03/03/22 11/11/23 History tablet,extended release 24 hr omeprazole 20 mg capsule,delayed 20 mg PO DAILY 03/03/22 11/11/23 History release fexofenadine 180 mg tablet 180 mg PO DAILY 11/11/23 11/11/23 History (Allergy Relief (fexofenadine)) ondansetron 4 mg disintegrating 4 mg PO Q8H PRN nausea 11/11/23 11/11/23 History tablet polyethylene glycol 3350 17 8.5 g PO DAILY 11/11/23 11/11/23 History gram/dose oral powder tramadol 50 mg tablet 50 mg PO BID PRN pain 11/11/23 11/11/23 History Allergies Allergy/AdvReac Type Severity Reaction Status Date / Time ibuprofen AdvReac Gastrointestinal Verified 11/11/23 09:32 Upset Exam Const: Vital Signs, click to edit/add: Vital Signs - 24 hr 11/11/23 09:23 11/11/23 14:02 Temperature 98.6 F Pulse Rate [Right Pulse Oximeter] 88 100 Respiratory Rate 14 16 Blood Pressure [Ri ght Upper Arm] 180/90 H 173/92 H Pulse Oximetry 98 95 Oxygen Delivery Me thod Room Air Room Air Hospitalist - H&P: Result Labs Labs: Short CBC 11/11/23 Range/Units 10:09 WBC 10.06 (4.50-11.00) K/uL Hgb 13.3 (12.0-16.0) gm/dL Hct 40.0 (33.0-51.0) % Plt Count 385 (140-440) K/uL BMP 11/11/23 10:09 Sodium 132 L Potassium 3.5 L Chloride 94 L Carbon Dioxide 28 BUN 13 Creatinine 0.7 Glucose 122 H Calcium 9.3 Cardiac Enzymes 11/11/23 Range/Units 10:09 Troponin I < 0.01 L (0.01-0.04) ng/mL Liver Function 11/11/23 Range/Units 10:09 Total Bilirubin 1.3 (0.1-1.5) mg/dL AST 34 (12-35) U/L ALT 23 (4-35) U/L Alkaline Phosphatase 82 (40-150) U/L Albumin 4.7 (3.3-5.0) g/dL Urine 11/11/23 Range/Units Unknown Urine Color Yellow (Yellow) Urine Appearance Clear (Clear) Urine pH 6.0 (5.0-8.5) Ur Specific [place] 1.010 (1.000-1.030) Urine Protein Negative (Negative) Urine Glucose (UA) Negative (Negative) Assessment and Plan Assessment and plan (1) Colonic mass: Problem comment: -presented to the ED on 11/03 w/abdominal pain. Solid enhancing cecal mass that measures up to 2 centimeters noted on imaging. There are numerous adjacent enlarged lymph nodes including a large lymph node that is partially necrotic measuring up to 3.6 cms. -general surgery evaluated - hemicolectomy am of 11/12/23 -EKG reviewed. No Echo indicated. Pt is stable and can proceed to the OR. Status: Acute (2) Vomiting: Problem comment: -not tolerating colon prep for outpatient colonoscopy -mild hypokalemia, mild hyponatremia, ketones in urine -admit for hydration, antiemetics and gen surg to perform hemicolectomy tomorrow Status: Acute (3) Hypokalemia: Problem comment: IVF, trend Status: Acute (4) Hyponatremia: Problem comment: IVF, trend Status: Acute (5) Abdominal pain: Problem comment: -appendix looks unremarkable on 11/10 image (some concern on 11/03) -no acute findings on 11/10 imaging -as she is not tolerating PO or prep - decision to admit for surgery made 11/11/23 (Mara Vargas - general surgery) -pain management addressed Status: Acute (6) Uncontrolled hypertension: Problem comment: three med regimen continued upon admission (pt had not taken her home meds 11/10) - ordered the lisinopril, amlodipine, metoprolol this afternoon. May need IV metoprolol or labetalol post operatively. Status: Acute (7) Pancreatic lesion: Problem comment: Enlarging 10 millimeter low-density lesion in the pancreatic head noted on CT 5/30/24 -MR abdomen recommended - can be addressed as an outpatient -lipase normal Status: Acute (8) Hyperlipidemia: Problem comment: statin Status: Acute (9) GERD (gastroesophageal reflux disease): Problem comment: prilosec Status: Acute
[2023-11-11] MEDS: LACTATED RINGERS 1000 ML 1,000 ML 100 ML IV (16:05)
[2023-11-11] MEDS: lisinopriL 20 MG TABLET 40 MG PO (16:07)
[2023-11-11] MEDS: AMLODIPINE 10 MG TABLET PO (16:07)
[2023-11-11] MEDS: OMEPRAZOLE 20 MG CAPSULE DR 40 MG PO (16:07)
[2023-11-11] MEDS: METOPROLOL SUCCINATE (XL) 100 MG TAB 200 MG PO (16:10)
[2023-11-11] MEDS: ACETAMINOPHEN 325 MG TABLET PO (21:55)
[2023-11-12] VITALS (30 sets, daily range): BP systolic 130–185; BP diastolic 66–89; PULSE 60–83; RESP 14–20; TEMP 35.8–36.9; O2SAT 90–100
[2023-11-12] MEDS: LACTATED RINGERS 1000 ML 1,000 ML 100 ML IV ×3 (01:36→23:11)
--- NOTE | 2023-11-12 06:25 | PC.NURSE ---
End of shift [id number]: A&O pleasant and cooperative. Rating pain in abdomen 4-01/14. Tylenol given w/ stated relief. Bowel sounds active. Afebrile. SBA w/ walker and gait belt. NPO since 0000. Using call light appropriately.
[2023-11-12 06:48] LABS: Chloride* 96 mmol/L (96-114); Sodium* 135 mmol/L (135-149)
[2023-11-12 06:49] LABS: Potassium* 3.4 mmol/L (3.6-5.1)
[2023-11-12 06:51] LABS: Anion Gap 6 mEq/L (7-15); Blood Urea Nitrogen* 9 mg/dL (7-30); Carbon Dioxide* 33 mmol/L (20-32); Creatinine* 0.7 mg/dL (0.5-1.5); Est. Creatinine Clearance* 34.87; Estimated Glomerular Filt Rate 84 ml/min
[2023-11-12 06:52] LABS: Calcium* 9.2 mg/dL (8.4-10.6); Glucose* 93 mg/dL (60-115)
[2023-11-12] MEDS: lisinopriL 20 MG TABLET 40 MG PO (07:27)
[2023-11-12] MEDS: METOPROLOL SUCCINATE (XL) 100 MG TAB 200 MG PO (07:27)
[2023-11-12] MEDS: AMLODIPINE 10 MG TABLET PO (07:27)
[2023-11-12] MEDS: POTASSIUM CHLORIDE 10 MEQ CAPSULE ER 40 MEQ PO (07:28)
[2023-11-12] MEDS: SODIUM CHLORIDE 0.9 % (FLUSH) 10 ML SYRINGE 5 ML IVF ×2 (07:31→20:10)
[2023-11-12] MEDS: ERTAPENEM 1 GM inj IVPB (08:53)
[2023-11-12] MEDS: BUPIVACAINE 0.25% 30 ML INJECTION (09:08)
--- NOTE | 2023-11-12 10:28 | W.PM.NB ---
Nerve Block Nerve Block Time Seen by Provider: 08:38 Date Seen: 11/12/23 Type of block requested by surgeon for post-operative analgesia: TAP Side: bilateral Time out performed: Yes Verification of patient name: Yes Verification of date of : Yes Site marking: site marked Name of person performing procedure: Riaz Continuous monitoring Was continuous monitoring of O2 sat, B/P, cardiac nurse specialist, recorded every 15 minutes?: Yes Procedure Checklist: sterile prep, needles and gloves Ultrasound guided. Images saved: Yes Medications given in 5ml increments after negative aspiration: Marcaine %: 0.25 mL: 30 Needle gauge: 20 and Exparel mL: 10 Patient tolerated procedure well: Yes Additional comments: Needle noted between internal oblique and transversus abdominus. Local spread visualized Block Charges Block Charge (with Pro Fee): TAP Bilateral Use of Ultrasound Machine for Block: Yes- US Guidance/pain block
--- NOTE | 2023-11-12 10:28 | W.ANESCHARGE ---
Anesthesia Charges Start Date/Time Anesthesia Start Date: 11/12/23 Anesthesia Start Time: 08:37 Stop Date/Time Anesthesia Stop Date: 11/12/23 Anesthesia Stop Time: 11:51 Summary Extremes of Age - Over 70 or under 1: MDA
--- NOTE | 2023-11-12 10:47 | PM.IMPN1 ---
Progress Note: A&P Assessment and plan (1) Colonic mass: Problem details: -presented to the ED on 11/03 w/abdominal pain. Solid enhancing cecal mass that measures up to 2 centimeters noted on imaging. There are numerous adjacent enlarged lymph nodes including a large lymph node that is partially necrotic measuring up to 3.6 cms. -general surgery evaluated - hemicolectomy 11/12/23 -EKG reviewed. No Echo indicated. Pt is stable and can proceed to the OR. Status: Acute (2) Vomiting: Problem details: -not tolerating colon prep for outpatient colonoscopy -mild hypokalemia, mild hyponatremia, ketones in urine Resolved this am. NPO for surgical procedure. Continue IVF, antiemetics prn Status: Acute (3) Hypokalemia: Problem details: K+ 3.4 preoperatively. Supplemented with oral. Continue to monitor Status: Acute (4) Hyponatremia: Problem details: Improved to 135, continue to monitor Status: Acute (5) Abdominal pain: Problem details: -appendix looks unremarkable on 11/10 image (some concern on 11/03) -no acute findings on 11/10 imaging -as she is not tolerating PO or prep - decision to admit for surgery made 11/11/23 (Mara Vargas - general surgery) Continue perioperative pain management as needed Status: Acute (6) Uncontrolled hypertension: Problem details: three med regimen continued upon admission (pt had not taken her home meds 11/10) - ordered the lisinopril, amlodipine, metoprolol this afternoon. Received morning doses prior to surgery. May need IV metoprolol or labetalol post operatively. Status: Acute (7) Pancreatic lesion: Problem details: Enlarging 10 millimeter low-density lesion in the pancreatic head noted on CT 11/04/23 -MR abdomen recommended - can be addressed as an outpatient -lipase normal Status: Acute (8) Hyperlipidemia: Problem details: statin Status: Acute (9) GERD (gastroesophageal reflux disease): Problem details: prilosec Status: Acute Plan Hemicolectomy 11/11, post operative surgical recommendations per General Surgery. Pathology pending. Likely d/c home awaiting further follow up plans. Subjective Date Seen: 11/12/23 Interval history: Patient is seen preoperatively this morning with family at bedside. Feeling okay, mildly nervous. Rates abdominal pain 12/14. No nausea or vomiting. Able to tolerate broth and juice last night. Currently NPO. Has remained afebrile. Vitally stable. Exam Narrative: Exam Narrative: PHYSICAL EXAM General: Pleasant, conversant, NAD HEENT: Normocephalic, atraumatic, sclera white, EOMI Cardiovascular: RRR Pulmonary: CTA bilaterally without rhonchi, rales, expiratory wheezes. No dyspnea on room air Abdominal: Soft, distended, mildly tender without guarding Neurological: Alert, answering questions appropriately, cranial nerves intact, no focal findings Extremities: No gross joint deformity or swelling. AROMI. Neurovascularly intact Skin: Warm, dry. Const: Vital Signs, click to edit/add: Vital Signs - 24 hr 11/11/23 14:02 11/11/23 14:33 11/11/23 14:33 Temperature Pulse Rate 91 Pulse Rate [Pulse Oximeter] Pulse Rate [Right Pulse Oximeter] 100 Respiratory Rate 16 Blood Pressure [Ri ght Arm] Blood Pressure [Ri ght Upper Arm] 173/92 H Pulse Oximetry 95 98 Oxygen Delivery Nm thod Room Air Room Air 11/11/23 15:00 11/11/23 15:00 11/11/23 15:00 Temperature 98.6 F Pulse Rate Pulse Rate [Pulse Oximeter] Pulse Rate [Right Pulse Oximeter] Respiratory Rate 18 16 Blood Pressure [Ri ght Arm] 171/92 H Blood Pressure [Ri ght Upper Arm] Pulse Oximetry 98 95 98 [facility] 11/11/23 19:58 11/11/23 23:23 11/11/23 23:25 Temperature 97.3 F L 97.3 F L Pulse Rate Pulse Rate [Pulse Oximeter] 73 72 Pulse Rate [Right Pulse Oximeter] Respiratory Rate 20 16 Blood Pressure [Ri ght Arm] 153/76 H 172/86 H Blood Pressure [Ri ght Upper Arm] Pulse Oximetry 95 93 93 Oxygen Delivery Nm thod Room Air Room Air 11/12/23 00:04 11/12/23 03:00 11/12/23 07:00 Temperature 97.1 F L Pulse Rate 68 Pulse Rate [Pulse Oximeter] 63 Pulse Rate [Right Pulse Oximeter] Respiratory Rate 16 Blood Pressure [Ri ght Arm] 152/72 H Blood Pressure [Ri ght Upper Arm] Pulse Oximetry 92 93 Oxygen Delivery Nm thod Room Air 11/12/23 07:00 11/12/23 08:25 11/12/23 08:28 Temperature 98.4 F Pulse Rate 69 Pulse Rate [Pulse Oximeter] 74 Pulse Rate [Right Pulse Oximeter] Respiratory Rate 15 Blood Pressure [Ri ght Arm] 185/89 H 180/83 H Blood Pressure [Ri ght Upper Arm] Pulse Oximetry 94 Oxygen Delivery Me thod Room Air Labs Labs: Laboratory Results - last 24 hr 11/11/23 11/11/23 11/11/23 10:09 13:13 Unknown Sodium Potassium Chloride Carbon Dioxide Anion Gap BUN Creatinine Estimated Creat Clear Estimated GFR Glucose Calcium Troponin I < 0.01 L Urine Color Yellow Urine Appearance Clear Urine pH 6.0 Ur Specific [place] 1.010 Urine Protein Negative Urine Glucose (UA) Negative Urine Ketones 1+ A Urine Blood Negative Urine Nitrite Negative Urine Bilirubin Negative Urine Urobilinogen 0.2 Ur Leukocyte Esterase Negative Urine RBC 0-2 Urine WBC 0-2 Ur Squamous Epith Cells None Urine Bacteria None Lab Acknowledgement Test Added 11/12/23 05:53 Sodium 135 Potassium 3.4 L Chloride 96 Carbon Dioxide 33 H Anion Gap 6 L BUN 9 Creatinine 0.7 Estimated Creat Clear 34.87 Estimated GFR 84 Glucose 93 Calcium 9.2 Troponin I Urine Color Urine Appearance Urine pH Ur Specific [place] Urine Protein Urine Glucose (UA) Urine Ketones Urine Blood Urine Nitrite Urine Bilirubin Urine Urobilinogen Ur Leukocyte Esterase Urine RBC Urine WBC Ur Squamous Epith Cells Urine Bacteria Lab Acknowledgement
--- NOTE | 2023-11-12 11:45 | P.GSOP_ITS ---
Operative Note Date of procedure: 11/12/23 Pre-op diagnosis: 1. 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 Post-op diagnosis: Same Type of Procedure: 1. Laparoscopic right hemicolectomy. Indications: 87-year-old female presented to emergency room with right-sided abdominal pain radiating to her back. The pain was present intermittently for the last 2-3 months But most recently became more constant. She was seen in the emergency room and had an abdominal CT scan showing a cecal mass concerning for malignancy. Patient was scheduled for colonoscopy but she was vomiting prior to initiating the prep. Her colonoscopy was rescheduled. Patient continued to be only on clears and was not able to tolerate drinking very much without vomiting. Patient re-presented to the emergency room with continued abdominal pain. Her CT was repeated and showed no dilated small intestine. The cecal mass was present and there was no lymphadenopathy noted near the right colon. On clinical exam patient had tenderness to palpation in the right lower quadrant with no peritoneal signs. Given patient's clinical history, cecal cancer was suspected, and laparoscopic right hemicolectomy was recommended. The procedure was discussed in detail. The risks associated procedure including infection, bleeding, injury to intra-abdominal organs, and anastomotic leak were all discussed with the patient, and she agreed to proceed. Procedure Description: After discussing the risks and benefits of the procedure, the patient signed informed consent.? The operative site was marked and the patient was brought to the operating room and placed on the operating table in supine position.? Care was taken to pad the patient's pressure points.?? The patient was then intubated by anesthesia.?TAP blocks were administered by Anesthesia. Manjarrez catheter was placed under sterile conditions.? The operative site was then prepped and draped in the usual sterile fashion.? A time-out was then performed. A 5-mm laparoscopy port was placed in the left upper quadrant guided by a 5-mm laparoscope placed into a translucent trochar. Passage through the layers of the abdominal wall was visualized with the laparoscope. A pneumoperitoneum was established. A 30-degree 5-mm laparoscope was advanced into the abdomen. The abdomen was briefly surveyed, and there was no evidence of adhesions or peritoneal studding. A 12-mm port and a 5-mm port were placed in the left low quadrant and suprapubically, respectively, under direct visualization by laparoscope. An additional 5 mm port was placed supraumbilically under direct visualization. Left upper quadrant entrance port was then examined intraabdominally by placing the camera through the left lower quadrant port and no intraabdominal injury was seen. The cecum was identified and terminal ileum was identified and retracted medially. Firm mass was palpated in the cecum. The cecum was not adherent to retroperitoneum or lateral peritoneum. Thick adhesions were noted of the ascending colon to the abdominal wall and those were taken down with Harmonic s calpel. The cecum was floppy and not particularly adherent to the abdominal wall. The cecum was grasped and retracted towards the abdominal wall. The ileocolic vascular pedicle was then identified. The peritoneum over the vascular pedicle was scored with Harmonic scalpel. The vascular pedicle was skeletonized circumferentially with Harmonic scalpel. An enlarged lymph node slightly larger than 1 cm was noted at the base of the ileal colic vascular pedicle. This was carefully dissected off the vascular pedicle with Harmonic scalpel. Hemostasis was achieved with clips and Harmonic scalpel. The enlarged lymph node broke in two halves during this dissection. This enlarged node was then taken out of the abdomen with the laparoscopic bag and sent to pathology with the main specimen later. The vascular pedicle was then stapled with a vascular load of Endo-CONY stapler. When the stapler was removed, the staple line was examined, and no bleeding was seen from the staple line. We then continued with the medial dissection. The peritoneum of the ascending colon was incised with Harmonic scalpel. This dissection was carried towards the hepatic flexure. Duodenum was visualized and care was taken not to injure the duodenum. We then shifted our attention to the transverse colon. The omentum was grasped and retracted cephalad and towards the abdominal wall. Avascular plane was identified between the omentum and transverse colon. This was incised with Harmonic scalpel. This dissection was carried towards the hepatic flexure with Harmonic scalpel. The adhesions of posterior transverse colon mesentery to the retroperitoneum were also divided with Harmonic scalpel. This dissection was carried from the midline towards the right lateral abdominal wall. We then continued our dissection along the White line of Toldt on the right lateral abdominal wall until the right colon was mobile and free from retroperitoneum. Hemostasis throughout this dissection was achieved with cautery and was minimal. The right colon and terminal ileum were then examined and were mobile for anastomosis. We then proceeded with extracorporeal portion of this procedure. The appendix was grasped with a locking grasper. A midline supraumbilical incision was made with a scalpel just superior to the previously placed 5 mm port and including this 5 mm port skin opening into this common incision. Subcutaneous fat and fascia were divided with cautery until the abdomen was entered. The supraumbilical 5 mm port was removed and the fascial opening was extended superiorly. A small Hernán retractor was then placed into this supraumbilical midline incision. The cecum, ascending colon, and terminal ileum were eviscerated and were very mobile. No bleeding was noted from mesentery. The terminal ileum just proximal to the ileal fat pad was elected as a point for division of ileum. The terminal ileal mesentery distal to that area was then divided with clamps and Vicryl ties. The proximal transverse colon near the hepatic flexure was elected as the spot to divide the transverse colon. Transverse colon mesentery in this area was divided with clamps and ties. The right branch of the middle colic artery was also divided. All laparoscopic instruments were covered with towels. A blue load of CONY stapler was then used to divide terminal ileum and transverse colon. The right colon was then passed off the field and sent to pathology. Bleeding from the transverse colon staple line and terminal ileum staple line was controlled with [id number] 3-0 silk sutures. We then continued with side to side functional end to end ileocolic anastomosis. A stay suture was placed using 3-0 silk near the ileal and colonic staple lines. The enterotomy was then made less than 1 cm proximal to the ileal staple line with cautery. One arm of the CONY stapler was placed into the ilium. A colotomy was then made less than 1 cm distal to the colonic staple line, and the second arm of the CONY stapler was placed into the colon. The transverse colon and terminal ileum were lined up on the anti mesenteric side to create the anastomosis. The anastomosis was then created with a blue load of 100 CONY stapler. The staple line was examined from the inside and no bleeding was identified. The common enterotomy was then closed with interrupted Lembert sutures using 3-0 silk. 2 crotch stitches were placed. The anastomosis was also reinforced in the middle with 3-0 silk Lembert sutures to avoid undue tension. The anastomosis was well perfused and was patent on palpation. The right mesenteric defect extended towards the retroperitoneum and I was not able to see the bottom of the peritoneal edge. The mesenteric defect was not closed. At this point the anastomosis was placed into the abdomen, and we removed all the dirty instruments and towels from the field. The Shazia retractor was removed, and we proceeded with midline laparotomy fascial closure. The supraumbilical midline laparotomy fascia was then closed with 2 running 0-0 Maxon sutures. The abdomen was then insufflated again with carbon dioxide. Anastomosis was examined and was in the right upper quadrant. No bleeding was identified in the surgical field. The 12-mm port was withdrawn and the fascial defect was closed with 0-0 Vicryl stitch using Kumar Chaparro needle under direct visualization. The 5-mm ports were removed under direct visualization. The left upper quadrant port was used to evacuate the pneumoperitoneum and then withdrawn. Additional local anesthetic was injected at all of the incisions. Subcutaneous fat and dermis of the supraumbilical laparotomy incision were reapproximated with 3-0 Vicryl sutures. The skin of all incisions was closed with 4-0 monocryl. Steri-Strips and sterile pressure dressings were applied over the incisions. All counts were correct at the end of the case. The patient tolerated this procedure well and was transferred to PACU in stable condition. Findings: Firm on palpation cecal mass. Enlarged lymph nodes near the ileocolic vascular pedicle. No peritoneal studding. Anesthesia: GETA Surgeon: Isaiah Vargas MD Estimated blood loss (mL): 20 Additional Specimen Information: 1. Right colon and enlarged ileocolic lymph node. Condition: stable Disposition: PACU Colon Resection Operation Performed with Curative Intent: Yes Tumor location: Cecum Extent of colon and vascular resection: Right hemicolectomy-ileocolic, right colic (if present)
--- NOTE | 2023-11-12 11:55 | W.ANESCHARGE ---
Anesthesia Charges Start Date/Time Anesthesia Start Date: 11/12/23 Anesthesia Start Time: 08:37 Stop Date/Time Anesthesia Stop Date: 11/12/23 Anesthesia Stop Time: 11:51
[2023-11-12] MEDS: fentaNYL 100 MCG/2 ML inj 50 MCG IVP (12:18)
--- NOTE | 2023-11-12 12:38 | SUR.PHASEI ---
Patient meets anesthesia discharge criteria from PACU
--- NOTE | 2023-11-12 12:51 | REH.OT ---
OT: Order received, pt having surgery today. Will schedule eval for tomorrow.
[2023-11-12] MEDS: MORPHINE 4 MG/ML INJ IVP ×2 (14:37→18:31)
[2023-11-12] MEDS: OXYCODONE 5 MG TABLET PO (20:11)
[2023-11-13] VITALS (11 sets, daily range): BP systolic 151–172; BP diastolic 76–83; PULSE 64–84; RESP 16–20; TEMP 36.3–37.1; O2SAT 87–96
[2023-11-13] MEDS: OXYCODONE 5 MG TABLET PO ×2 (03:19→08:07)
[2023-11-13 04:31] LABS: Prealbumin 16.1 mg/dL (20.0-40.0)
--- NOTE | 2023-11-13 06:28 | PC.NURSE ---
End of shift note [id number]: Pt alert & oriented x 4 and able to make needs known. She has been continent of bladder throughout the shift. Abdomen noted to have distention with hypoactive bowel sounds after surgery. Dressings to abdomen remain C/D/I. VSS and pt has been afebrile throughout the shift. She remains on clear liquid diet with LR running at 100 mLs/hr per order. Pt denied N/V when asked. PRN Oxycodone administered for report of 5/10 abdominal pain with movement along with encouraging rest, providing ice pack and repositioning. Pt transfers/ambulates with SBA using FWW and gait belt. Oxygen 1 LPM utilized when pt sleeping due to O2 sat dipping below 90% when asleep during the night (low to mid 80s).?
[2023-11-13 06:48] LABS: Hemoglobin* 11.9 gm/dL (12.0-16.0); Mean Corpuscular HGB Conc 33 gm/dL (32-36); Mean Corpuscular Hemoglobin 28 pg (26-34); Mean Corpuscular Volume 84 fL (80-100); Platelet Count* 405 K/uL (140-440); Red Blood Count 4.29 m/uL (4.00-5.20); White Blood Count* 12.19 K/uL (4.50-11.00)
[2023-11-13 06:52] LABS: Slide Review Reflex No
[2023-11-13 07:06] LABS: Chloride* 96 mmol/L (96-114)
[2023-11-13 07:07] LABS: Potassium* 3.6 mmol/L (3.6-5.1); Sodium* 133 mmol/L (135-149)
[2023-11-13 07:09] LABS: Creatinine* 0.7 mg/dL (0.5-1.5); Est. Creatinine Clearance* 34.87; Estimated Glomerular Filt Rate 84 ml/min
[2023-11-13 07:10] LABS: Anion Gap 6 mEq/L (7-15); Blood Urea Nitrogen* 14 mg/dL (7-30); Calcium* 8.5 mg/dL (8.4-10.6); Carbon Dioxide* 31 mmol/L (20-32); Glucose* 113 mg/dL (60-115)
[2023-11-13] MEDS: LACTATED RINGERS 1000 ML 1,000 ML 100 ML IV ×2 (09:56→19:55)
[2023-11-13] MEDS: METOPROLOL SUCCINATE (XL) 100 MG TAB 200 MG PO (09:56)
--- NOTE | 2023-11-13 10:39 | PM.GSPN ---
Subjective Subjective Date Seen: 11/13/23 Interval history: Patient is doing well. She urinated several times. Her pain is controlled with pain medication. She denies nausea vomiting. She had sips of clears. Exam Narrative: Exam Narrative: Abdomen is soft, not distended, tender to palpation throughout the abdomen with no peritoneal signs. Const: Vital Signs, click to edit/add: Vital Signs - 24 hr 11/12/23 11:46 11/12/23 11:55 11/12/23 12:00 Temperature 97.0 F L Pulse Rate 66 62 62 Pulse Rate [Pulse Oximeter] Respiratory Rate 20 16 16 Blood Pressure 146/71 H 154/75 H 153/73 H Blood Pressure [Ri ght Arm] Pulse Oximetry 94 99 100 Oxygen Delivery Me thod Aerosol Mask Aerosol Mask Oxygen Flow Rate 3 3 11/12/23 12:05 11/12/23 12:10 11/12/23 12:15 Temperature Pulse Rate 62 62 63 Pulse Rate [Pulse Oximeter] Respiratory Rate 16 16 16 Blood Pressure 155/75 H 150/73 H 144/77 H Blood Pressure [Ri ght Arm] Pulse Oximetry 100 100 100 Oxygen Delivery Me thod Aerosol Mask Room Air Oxygen Flow Rate 3 11/12/23 12:20 11/12/23 12:25 11/12/23 12:30 Temperature 97.8 F Pulse Rate 62 64 60 Pulse Rate [Pulse Oximeter] Respiratory Rate 16 16 17 Blood Pressure 136/71 134/67 149/73 H Blood Pressure [Ri ght Arm] Pulse Oximetry 93 94 99 Oxygen Delivery Me thod Aerosol Mask Oxygen Flow Rate 3 11/12/23 12:35 11/12/23 12:48 11/12/23 13:00 Temperature 96.4 F L Pulse Rate 62 66 67 Pulse Rate [Pulse Oximeter] Respiratory Rate 18 16 16 Blood Pressure 143/75 H 143/78 H 138/71 Blood Pressure [Ri ght Arm] Pulse Oximetry 99 94 90 Oxygen Delivery Me thod Room Air Room Air Room Air Oxygen Flow Rate 0 11/12/23 13:20 11/12/23 13:35 11/12/23 13:50 Temperature 96.6 F L 96.8 F L 97 F L Pulse Rate 65 66 68 Pulse Rate [Pulse Oximeter] Respiratory Rate 14 16 20 Blood Pressure 138/69 130/66 131/66 Blood Pressure [Ri ght Arm] Pulse Oximetry 91 94 95 Oxygen Delivery Me thod Room Air Room Air Room Air Oxygen Flow Rate 11/12/23 14:20 11/12/23 14:50 11/12/23 16:00 Temperature 97.3 F L 96.8 F L Pulse Rate 67 67 Pulse Rate [Pulse Oximeter] Respiratory Rate 18 18 Blood Pressure 131/68 141/75 H Blood Pressure [Ri ght Arm] Pulse Oximetry 99 93 93 Oxygen Delivery Me thod Room Air Room Air Oxygen Flow Rate 11/12/23 16:00 11/12/23 17:00 11/12/23 19:13 Temperature 97.5 F L 98.2 F 98.4 F Pulse Rate 81 75 Pulse Rate [Pulse Oximeter] 83 Respiratory Rate 18 18 16 Blood Pressure 148/77 H 158/81 H Blood Pressure [Ri ght Arm] 144/78 H Pulse Oximetry 93 93 92 Oxygen Delivery Me thod Room Air Room Air Room Air Oxygen Flow Rate 11/12/23 19:16 11/12/23 20:00 11/12/23 23:00 Temperature 98.4 F Pulse Rate 83 76 Pulse Rate [Pulse Oximeter] Respiratory Rate 16 16 Blood Pressure 144/78 H Blood Pressure [Ri ght Arm] Pulse Oximetry 92 91 Oxygen Delivery Me thod Room Air Room Air Oxygen Flow Rate 0 11/12/23 23:00 11/12/23 23:02 11/12/23 23:08 Temperature Pulse Rate 77 Pulse Rate [Pulse Oximeter] 78 Respiratory Rate 16 Blood Pressure Blood Pressure [Ri ght Arm] Pulse Oximetry 91 Oxygen Delivery Me thod Oxygen Flow Rate 11/12/23 23:08 11/13/23 03:00 11/13/23 07:56 Temperature 98.2 F 98.0 F 98.6 F Pulse Rate Pulse Rate [Pulse Oximeter] 78 82 75 Respiratory Rate 16 18 18 Blood Pressure Blood Pressure [Ri ght Arm] 144/77 H 167/79 H 171/79 H Pulse Oximetry 91 93 94 Oxygen Delivery Me thod Room Air Nasal Cannula Room Air Oxygen Flow Rate 1 11/13/23 07:56 11/13/23 07:56 11/13/23 07:56 Temperature Pulse Rate Pulse Rate [Pulse Oximeter] 75 Respiratory Rate 18 18 Blood Pressure Blood Pressure [Ri ght Arm] Pulse Oximetry 94 94 Oxygen Delivery Me thod Room Air Oxygen Flow Rate Progress Note:A&P Assessment and plan (1) S/P right hemicolectomy: Status: Acute Assessment and Plan: 87-year-old female s/p laparoscopic right hemicolectomy POD 1. I discussed with the patient that we will continue on clear liquid diet until she is passing gas. We can restart her home medications to control her hypertension. Patient's hemoglobin went down to 11.9 from 13 preop. This is most likely dilutional since blood loss was minimal. I think it is safe to start her on Lovenox for DVT prophylaxis.
[2023-11-13] MEDS: ENOXAPARIN 40 MG/0.4 ML INJ SUBCUT (12:11)
[2023-11-13] MEDS: ACETAMINOPHEN 325 MG TABLET PO ×2 (13:15→19:54)
--- NOTE | 2023-11-13 16:18 | P.IMPN_ITS ---
Progress Note: A&P Assessment and plan (1) Colonic mass: Problem details: -presented to the ED on 11/03 w/abdominal pain. Solid enhancing cecal mass that measures up to 2 centimeters noted on imaging. There are numerous adjacent enlarged lymph nodes including a large lymph node that is partially necrotic measuring up to 3.6 cms. -EKG reviewed. No Echo indicated. -general surgery evaluated - hemicolectomy 11/12/23 - Awaiting return of bowel function. Getting clears, since she remains nauseous , will continue clears, discussed with Dr. Vargas from General surgery today. Continue IVF, antiemetics prn Status: Acute (2) Hyponatremia: Problem details: Na 133, continue to monitor Status: Acute (3) Uncontrolled hypertension: Problem details: three med regimen continued upon admission (pt had not taken her home meds 11/10) - restarted lisinopril, amlodipine, metoprolol 11/11. Status: Chronic (4) Pancreatic lesion: Problem details: Enlarging 10 millimeter low-density lesion in the pancreatic head noted on CT 11/04/23 -MR abdomen recommended - can be addressed as an outpatient -lipase normal Status: Acute (5) Hyperlipidemia: Problem details: statin Status: Chronic (6) GERD (gastroesophageal reflux disease): Problem details: prilosec Status: Chronic Plan Hemicolectomy 11/11, post operative surgical recommendations per General Surgery. Pathology pending. Likely d/c home awaiting further follow up plans. PT and OT to evaluate, family would like to consider rehab at discharge. Subjective Time Seen by Provider: 09:00 Date Seen: 11/13/23 Interval history: Sylvia is sitting up in bed with clear liquid tray in front of her. She has not drunk much of it and has a nausea bag nearby. Sylvia bland states that she was nauseous earlier today and keeps the nausea bag nearby because she feels like she might needed at some point even though she is not nauseous now. She denies pain. She weaned off oxygen today, having been on 1 L via nasal cannula overnight, but did needed again while sleeping in the early afternoon because she dropped into the low 80s when in a deep sleep. Upon waking she came right back up into the 90s. Her 2 daughters and their husbands were there with her today and I reviewed that we are waiting for pathology results, however these may not be back prior to discharge, that we would be looking at discharge once she is eating a full liquid or regular diet and tolerating it well, that PT and OT would be assessing her. They noted that she has gone to [facility] in the past for rehab and they think she would do well going there again. We also reviewed the pancreatic lesion that was found on CT and that she would need outpatient MRI to follow-up on this. Exam Narrative: Exam Narrative: General: No acute distress. Awake, alert, oriented. No pallor. No jaundice. Oropharynx: Clear. Mucous membranes moist. Cardiovascular: Regular rate and rhythm. No murmurs, gallops, or rubs. Respiratory: Clear to auscultation bilaterally. No wheezes or crackles. Abdomen: Bowel sounds present. Soft, mildly distended, nontender to palpation, bandage and laparoscopic wounds are clean, dry and intact. Extremities: No pedal edema. Const: Vital Signs, click to edit/add: Vital Signs - 24 hr 11/12/23 17:00 11/12/23 19:13 11/12/23 19:16 Temperature 98.2 F 98.4 F 98.4 F Pulse Rate 75 83 Pulse Rate [Pulse Oximeter] 83 Respiratory Rate 18 16 16 Blood Pressure 158/81 H 144/78 H Blood Pressure [Ri ght Arm] 144/78 H Pulse Oximetry 93 92 92 Oxygen Delivery Me thod Room Air Room Air Room Air Oxygen Flow Rate 0 11/12/23 20:00 11/12/23 23:00 11/12/23 23:00 Temperature Pulse Rate 76 Pulse Rate [Pulse Oximeter] 78 Respiratory Rate 16 16 Blood Pressure Blood Pressure [Ri ght Arm] Pulse Oximetry 91 Oxygen Delivery Me thod Room Air Oxygen Flow Rate 11/12/23 23:02 11/12/23 23:08 11/12/23 23:08 Temperature 98.2 F Pulse Rate 77 Pulse Rate [Pulse Oximeter] 78 Respiratory Rate 16 Blood Pressure Blood Pressure [Ri ght Arm] 144/77 H Pulse Oximetry 91 91 Oxygen Delivery Ma thod Room Air Oxygen Flow Rate 11/13/23 03:00 11/13/23 07:55 11/13/23 07:56 Temperature 98.0 F 98.6 F Pulse Rate 84 Pulse Rate [Pulse Oximeter] 82 75 Respiratory Rate 18 18 Blood Pressure Blood Pressure [Ri ght Arm] 167/79 H 171/79 H Pulse Oximetry 93 94 Oxygen Delivery Me thod Nasal Cannula Room Air Oxygen Flow Rate 1 11/13/23 07:56 11/13/23 07:56 11/13/23 07:56 Temperature Pulse Rate Pulse Rate [Pulse Oximeter] 75 Respiratory Rate 18 18 Blood Pressure Blood Pressure [Ri ght Arm] Pulse Oximetry 94 94 Oxygen Delivery Me thod Room Air Oxygen Flow Rate 11/13/23 11:17 11/13/23 15:04 11/13/23 15:04 Temperature 98.7 F 98.1 F Pulse Rate Pulse Rate [Pulse Oximeter] 70 69 Respiratory Rate 20 16 Blood Pressure Blood Pressure [Ri ght Arm] 151/76 H 151/83 H Pulse Oximetry 93 96 96 Oxygen Delivery Me thod Room Air Room Air Oxygen Flow Rate 11/13/23 15:04 11/13/23 15:04 Temperature Pulse Rate Pulse Rate [Pulse Oximeter] 69 Respiratory Rate 16 16 Blood Pressure Blood Pressure [Ri ght Arm] Pulse Oximetry 96 Oxygen Delivery Me thod Room Air Oxygen Flow Rate Labs Labs: Laboratory Results - last 24 hr 11/11/23 11/13/23 10:09 05:51 WBC 12.19 H RBC 4.29 Hgb 11.9 L Hct 36.0 MCV 84 MCH 28 MCHC 33 Plt Count 405 Sodium 133 L Potassium 3.6 Chloride 96 Carbon Dioxide 31 Anion Gap 6 L BUN 14 Creatinine 0.7 Estimated Creat Clear 34.87 Estimated GFR 84 Glucose 113 Calcium 8.5 Prealbumin 16.1 L
--- NOTE | 2023-11-13 18:12 | PC.NURSE ---
Addendum entered by Rosa Bender RN 11/13/23 18:20: Tele=NSR, active ice used on abdomen. Original Note: End of Shift: Patient pleasant and cooperative. Patient vitally stable, lungs clear, BS WNL, abdomen slightly distended, IV running LR at 100ml. Patient rates abdominal pain at most 5/10, 5 mg of oxy given once and tylenol given once. Patient 1 assist/walker. Patient is currently on RA but was on 1L of NS earlier in the day when falling asleep. Abdominal incision and 3 lap sites C/D/I. Patient is tolerating clear liquid diet well. Patient has not passed gas.
[2023-11-13] MEDS: SODIUM CHLORIDE 0.9 % (FLUSH) 10 ML SYRINGE 5 ML IVF (19:56)
[2023-11-13 20:00] LABS: Carcinoembryonic Antigen 6.3 ng/mL
[2023-11-14] VITALS (9 sets, daily range): BP systolic 132–174; BP diastolic 75–89; PULSE 61–90; RESP 16–18; TEMP 36.5–36.9; O2SAT 91–96
[2023-11-14] MEDS: OXYCODONE 5 MG TABLET PO ×3 (00:24→21:39)
[2023-11-14] MEDS: LACTATED RINGERS 1000 ML 1,000 ML 100 ML IV (04:43)
[2023-11-14 05:53] LABS: Hematocrit 33.1 % (33.0-51.0); Hemoglobin* 10.6 gm/dL (12.0-16.0); Mean Corpuscular HGB Conc 32 gm/dL (32-36); Mean Corpuscular Hemoglobin 28 pg (26-34); Mean Corpuscular Volume 86 fL (80-100); Platelet Count* 339 K/uL (140-440); Red Blood Count 3.86 m/uL (4.00-5.20); White Blood Count* 9.42 K/uL (4.50-11.00)
[2023-11-14 05:56] LABS: Slide Review Reflex No
[2023-11-14 06:05] LABS: Chloride* 97 mmol/L (96-114)
[2023-11-14 06:06] LABS: Potassium* 3.4 mmol/L (3.6-5.1); Sodium* 133 mmol/L (135-149)
[2023-11-14 06:08] LABS: Creatinine* 0.7 mg/dL (0.5-1.5); Est. Creatinine Clearance* 34.87; Estimated Glomerular Filt Rate 84 ml/min
[2023-11-14 06:09] LABS: Anion Gap 3 mEq/L (7-15); Blood Urea Nitrogen* 11 mg/dL (7-30); Calcium* 8.4 mg/dL (8.4-10.6); Carbon Dioxide* 33 mmol/L (20-32); Glucose* 93 mg/dL (60-115)
--- NOTE | 2023-11-14 06:33 | PC.NURSE ---
Expanse Downtime occurred from approximately [id number] on 11/14/23.
--- NOTE | 2023-11-14 06:33 | PC.NURSE ---
End of shift note [id number]: Pt remains alert & oriented x 4 and able to make needs known by using call light appropriately. IV to L AC remains patent with LR running at 100 mLs/hr. Pt has been afebrile throughout the shift. No drainage observed to covered abdominal incision with steri strips in place to additional incisions and no drainage observed. Pt has been continent of bladder throughout the shift. Abdominal pain has been controlled with PRN Tylenol and PRN Oxycodone along with rest, repositioning and ice provided. Pt rated pain 4/10 at highest level. Oxygen worn at 1 LPM as O2 sat dropped to 87% when on RA when sleeping at HS. Pt has not yet had a BM since surgery though bowel sounds are noted to be active and more active when compared to bowel sounds on 11/12/23.?
--- NOTE | 2023-11-14 06:41 | PC.NURSE ---
Slight nonpitting edema noted to L hand/forearm with elevation encouraged. Pt has no edema observed to left upper arm and IV remains?patent.
[2023-11-14] MEDS: ACETAMINOPHEN 325 MG TABLET PO ×3 (06:58→21:39)
[2023-11-14] MEDS: AMLODIPINE 10 MG TABLET PO (08:56)
[2023-11-14] MEDS: METOPROLOL SUCCINATE (XL) 100 MG TAB 200 MG PO (08:56)
[2023-11-14] MEDS: lisinopriL 20 MG TABLET 40 MG PO (08:56)
--- NOTE | 2023-11-14 09:27 | PM.GSPN ---
Subjective Subjective Date Seen: 11/14/23 Interval history: Patient is did well overnight. She urinated a lot. She mostly ambulated going to the bathroom but not in the hallway. She tolerated clears and did not have any nausea vomiting. She denies passing gas. Exam Narrative: Exam Narrative: abdomen: soft, not distended, not tender to palpation, surgical incision with clean Steri-Strips, there is no surrounding erythema. Const: Vital Signs, click to edit/add: Vital Signs - 24 hr 11/13/23 11:17 11/13/23 15:04 11/13/23 15:04 Temperature 98.7 F 98.1 F Pulse Rate Pulse Rate [Pulse Oximeter] 70 69 Respiratory Rate 20 16 Blood Pressure [Ri ght Arm] 151/76 H 151/83 H Pulse Oximetry 93 96 96 Oxygen Delivery Me thod Room Air Room Air Oxygen Flow Rate 11/13/23 15:04 11/13/23 15:04 11/13/23 16:53 Temperature Pulse Rate 82 Pulse Rate [Pulse Oximeter] 69 Respiratory Rate 16 16 Blood Pressure [Ri ght Arm] Pulse Oximetry 96 Oxygen Delivery Me thod Room Air Oxygen Flow Rate 11/13/23 20:03 11/13/23 21:30 11/13/23 21:36 Temperature 97.9 F Pulse Rate Pulse Rate [Pulse Oximeter] 67 Respiratory Rate 16 18 18 Blood Pressure [Ri ght Arm] 152/76 H Pulse Oximetry 90 87 L 95 Oxygen Delivery Me thod Room Air Room Air Nasal Cannula Oxygen Flow Rate 1 11/13/23 22:58 11/13/23 23:00 11/13/23 23:00 Temperature 97.4 F L Pulse Rate 64 Pulse Rate [Pulse Oximeter] 68 Respiratory Rate 18 Blood Pressure [Ri ght Arm] 172/80 H Pulse Oximetry 96 96 Oxygen Delivery Me thod Nasal Cannula Oxygen Flow Rate 1 11/13/23 23:00 11/13/23 23:00 11/14/23 03:00 Temperature 97.9 F Pulse Rate Pulse Rate [Pulse Oximeter] 68 66 Respiratory Rate 18 18 16 Blood Pressure [Ri ght Arm] 174/87 H Pulse Oximetry 96 91 Oxygen Delivery Me thod Nasal Cannula Nasal Cannula Oxygen Flow Rate 1 1 11/14/23 07:25 Temperature 98.2 F Pulse Rate Pulse Rate [Pulse Oximeter] 70 Respiratory Rate 16 Blood Pressure [Ri ght Arm] 157/75 H Pulse Oximetry 91 Oxygen Delivery Me thod Room Air Oxygen Flow Rate Progress Note:A&P Assessment and plan (1) S/P right hemicolectomy: Status: Acute Assessment and Plan: 87-year-old female s/p laparoscopic right hemicolectomy POD 2. Patient is recovering well. Will advance her to full liquid diet although she did not pass gas. Will DC her IV fluids since she had a large urine output yesterday. Patient will continue to ambulate. Patient might be ready to be discharged home tomorrow if therapies feel that she is safe to discharge. Patient will need to discharge home on 4 weeks of Lovenox.
[2023-11-14] MEDS: ENOXAPARIN 30 MG/0.3ML INJ SUBCUT ×2 (09:56→21:38)
--- NOTE | 2023-11-14 16:05 | PM.IMPN1 ---
Progress Note: A&P Assessment and plan (1) Colonic mass: Problem details: -presented to the ED on 11/03 w/abdominal pain. Solid enhancing cecal mass that measures up to 2 centimeters noted on imaging. There are numerous adjacent enlarged lymph nodes including a large lymph node that is partially necrotic measuring up to 3.6 cms. -EKG reviewed. No Echo indicated. -general surgery evaluated - hemicolectomy 11/12/23 - 11/13 tolerating clears. I spoke with Dr. Vargas regarding this patient today and we will be advancing her to a full liquid diet. If she tolerates this, she could advanced to a regular diet tomorrow and possibly discharge home tomorrow or the next day if doing well. Status: Acute (2) Hyponatremia: Problem details: Na 133, stable Status: Acute (3) Uncontrolled hypertension: Problem details: three med regimen continued upon admission (pt had not taken her home meds 11/10) - restarted lisinopril, amlodipine, metoprolol 11/11. Blood pressures remain elevated, I do not think she needs an adjustment of her antihypertensive regimen at this point. Will have her follow-up as an outpatient with her primary care provider and if her blood pressures remain elevated as an outpatient, that could be considered at that time. Status: Chronic (4) Pancreatic lesion: Problem details: Enlarging 10 millimeter low-density lesion in the pancreatic head noted on CT 11/04/23 -MR abdomen recommended - can be addressed as an outpatient; I spoke with the patient and her family about this on 11/12 -lipase normal Status: Acute (5) Hyperlipidemia: Problem details: statin Status: Chronic (6) GERD (gastroesophageal reflux disease): Problem details: prilosec Status: Chronic Plan Hemicolectomy 11/11, post operative surgical recommendations per General Surgery. Pathology pending. Likely d/c home awaiting further follow up plans. PT and OT to evaluate, family would like to consider rehab at discharge. Subjective Time Seen by Provider: 08:05 Date Seen: 11/14/23 Interval history: Sylvia is doing well. She is tolerating a clear liquid diet and has had no further nausea. Exam Narrative: Exam Narrative: General: No acute distress. Awake, alert, oriented. No pallor. No jaundice. Oropharynx: Clear. Mucous membranes moist. Cardiovascular: Regular rate and rhythm. No murmurs, gallops, or rubs. Respiratory: Clear to auscultation bilaterally. No wheezes or crackles. Abdomen: Bowel sounds present. Soft, nondistended, nontender to palpation, bandage and laparoscopic wounds are clean, dry and intact. Extremities: No pedal edema. Const: Vital Signs, click to edit/add: Vital Signs - 24 hr 11/13/23 16:53 11/13/23 20:03 11/13/23 21:30 Temperature 97.9 F Pulse Rate 82 Pulse Rate [Pulse Oximeter] 67 Respiratory Rate 16 18 Blood Pressure [Le ft Arm] Blood Pressure [Ri ght Arm] 152/76 H Pulse Oximetry 90 87 L Oxygen Delivery Me thod Room Air Room Air Oxygen Flow Rate 11/13/23 21:36 11/13/23 22:58 11/13/23 23:00 Temperature Pulse Rate 64 Pulse Rate [Pulse Oximeter] Respiratory Rate 18 Blood Pressure [Le ft Arm] Blood Pressure [Ri ght Arm] Pulse Oximetry 95 96 Oxygen Delivery Me thod Nasal Cannula Oxygen Flow Rate 1 11/13/23 23:00 11/13/23 23:00 11/13/23 23:00 Temperature 97.4 F L Pulse Rate Pulse Rate [Pulse Oximeter] 68 68 Respiratory Rate 18 18 18 Blood Pressure [Le ft Arm] Blood Pressure [Ri ght Arm] 172/80 H Pulse Oximetry 96 96 Oxygen Delivery Me thod Nasal Cannula Nasal Cannula Oxygen Flow Rate 1 1 11/14/23 03:00 11/14/23 07:25 11/14/23 07:25 Temperature 97.9 F 98.2 F Pulse Rate Pulse Rate [Pulse Oximeter] 66 70 Respiratory Rate 16 16 Blood Pressure [Le ft Arm] Blood Pressure [Ri ght Arm] 174/87 H 157/75 H Pulse Oximetry 91 91 91 Oxygen Delivery Me thod Nasal Cannula Room Air Oxygen Flow Rate 1 11/14/23 07:25 11/14/23 07:25 11/14/23 08:54 Temperature Pulse Rate 71 Pulse Rate [Pulse Oximeter] 70 Respiratory Rate 16 16 Blood Pressure [Le ft Arm] Blood Pressure [Ri ght Arm] Pulse Oximetry 91 Oxygen Delivery Me thod Room Air Oxygen Flow Rate 11/14/23 11:10 11/14/23 15:20 11/14/23 15:20 Temperature 98.1 F 98.5 F Pulse Rate Pulse Rate [Pulse Oximeter] 67 66 Respiratory Rate 18 18 Blood Pressure [Le ft Arm] 148/75 H 161/75 H Blood Pressure [Ri ght Arm] Pulse Oximetry 95 92 92 Oxygen Delivery Me thod Room Air Room Air Oxygen Flow Rate 11/14/23 15:20 11/14/23 15:20 11/14/23 15:38 Temperature Pulse Rate 61 Pulse Rate [Pulse Oximeter] 66 Respiratory Rate 18 18 Blood Pressure [Le ft Arm] Blood Pressure [Ri ght Arm] Pulse Oximetry 92 Oxygen Delivery Me thod Room Air Oxygen Flow Rate Labs Labs: Laboratory Results - last 24 hr 11/12/23 11/14/23 05:53 05:28 WBC 9.42 RBC 3.86 L Hgb 10.6 L Hct 33.1 MCV 86 MCH 28 MCHC 32 Plt Count 339 Sodium 133 L Potassium 3.4 L Chloride 97 Carbon Dioxide 33 H Anion Gap 3 L BUN 11 Creatinine 0.7 Estimated Creat Clear 34.87 Estimated GFR 84 Glucose 93 Calcium 8.4 CEA (off-site) 6.3
--- NOTE | 2023-11-14 18:24 | PC.NURSE ---
End of Shift: Patient pleasant and cooperative. Patient vitally stable, lungs clear/course, BS WNL, IV SL and intact. Patient rates pain at most 4/10, tylenol given once and active ice used. Patient tolerating full liquid diet, but does appear more distended in the upper abdomen at the end of this shift. Patient has been up in chair majority of shift. Patient urinating well, no passing gas. Tele=NSR. Patient overall is moving a lot better compared to yesterday. Abdominal incision and lap sites x3, C/D/I.
[2023-11-14] MEDS: SODIUM CHLORIDE 0.9 % (FLUSH) 10 ML SYRINGE 5 ML IVF (21:10)
[2023-11-15] VITALS (11 sets, daily range): BP systolic 135–163; BP diastolic 69–91; PULSE 67–86; RESP 16–18; TEMP 36.2–36.9; O2SAT 91–95
[2023-11-15] MEDS: MAG HYDROX/ALUMINUM HYD/SIMETH 30 ML ORAL.SUSP 15 ML PO (03:18)
[2023-11-15] MEDS: ONDANSETRON ODT 4 MG TAB PO (04:29)
--- NOTE | 2023-11-15 06:34 | PC.NURSE ---
End of shift note [id number]: Pt alert & oriented x 4 and using call light appropriately. She transfers with SBA using FWW and gait belt. IV to L AC patent and SL. 8/10 abdominal pain last evening treated with PRN Tylenol, PRN Oxycodone and ice along with rest and repositioning with no further complaints noted. Pt has not yet had a BM post surgery and has had no BM since 11/07/23. Pt reports she is not passing gas when asked though bowel sounds are noted to be active. Pt noted to be drinking fluids well and ambulating with staff. Kier Tender did update Dr. Polo with no new orders provided. B/P remains elevated at times (170/85 after ambulating to and from bathroom). Surgical incisions to abdomen WILBER with no redness, warmth, edema or drainage observed upon inspection. PRN Zofran administered po for c/o nausea. Pt has been continent of bladder throughout the shift. ?
[2023-11-15 06:36] LABS: Hematocrit 35.2 % (33.0-51.0); Hemoglobin* 11.5 gm/dL (12.0-16.0); Mean Corpuscular HGB Conc 33 gm/dL (32-36); Mean Corpuscular Hemoglobin 27 pg (26-34); Mean Corpuscular Volume 84 fL (80-100); Platelet Count* 397 K/uL (140-440); White Blood Count* 9.04 K/uL (4.50-11.00)
[2023-11-15 06:41] LABS: Slide Review Reflex No
[2023-11-15 06:52] LABS: Chloride* 93 mmol/L (96-114)
[2023-11-15 06:53] LABS: Potassium* 3.2 mmol/L (3.6-5.1); Sodium* 133 mmol/L (135-149)
[2023-11-15 06:55] LABS: Creatinine* 0.6 mg/dL (0.5-1.5); Est. Creatinine Clearance* 34.87; Estimated Glomerular Filt Rate 87 ml/min
[2023-11-15 06:56] LABS: Anion Gap 7 mEq/L (7-15); Blood Urea Nitrogen* 11 mg/dL (7-30); Calcium* 9.1 mg/dL (8.4-10.6); Carbon Dioxide* 33 mmol/L (20-32); Glucose* 108 mg/dL (60-115)
--- NOTE | 2023-11-15 07:33 | PM.GSPN ---
Subjective Subjective Date Seen: 11/15/23 Interval history: Patient's pain is slightly better today. It is controlled with pain medications. She is not passing gas and is concerned about that. She tolerated clears and ambulated yesterday. Exam Narrative: Exam Narrative: Abdomen is soft, not distended, minimally tender to palpation on the right and left side of the incision. Incisions are covered with Steri is that are clean and dry. Const: Vital Signs, click to edit/add: Vital Signs - 24 hr 11/14/23 08:54 11/14/23 11:10 11/14/23 15:20 Temperature 98.1 F 98.5 F Pulse Rate 71 Pulse Rate [Pulse Oximeter] 67 66 Respiratory Rate 18 18 Blood Pressure [Le ft Arm] 148/75 H 161/75 H Blood Pressure [Ri ght Arm] Pulse Oximetry 95 92 Oxygen Delivery Me thod Room Air Room Air 11/14/23 15:20 11/14/23 15:20 11/14/23 15:20 Temperature Pulse Rate Pulse Rate [Pulse Oximeter] 66 Respiratory Rate 18 18 Blood Pressure [Le ft Arm] Blood Pressure [Ri ght Arm] Pulse Oximetry 92 92 Oxygen Delivery Me thod Room Air 11/14/23 15:38 11/14/23 19:00 11/14/23 23:00 Temperature 98.1 F Pulse Rate 61 Pulse Rate [Pulse Oximeter] 90 Respiratory Rate 18 18 Blood Pressure [Le ft Arm] Blood Pressure [Ri ght Arm] 132/89 Pulse Oximetry 91 96 Oxygen Delivery Me thod Room Air Room Air 11/14/23 23:00 11/14/23 23:00 11/14/23 23:00 Temperature 97.7 F Pulse Rate Pulse Rate [Pulse Oximeter] 64 64 Respiratory Rate 18 18 Blood Pressure [Le ft Arm] Blood Pressure [Ri ght Arm] 170/85 H Pulse Oximetry 96 96 Oxygen Delivery Me thod Room Air 11/14/23 23:53 11/15/23 03:33 Temperature 97.8 F Pulse Rate 63 Pulse Rate [Pulse Oximeter] 75 Respiratory Rate 18 Blood Pressure [Le ft Arm] Blood Pressure [Ri ght Arm] 163/91 H Pulse Oximetry 91 Oxygen Delivery Me thod Room Air Progress Note:A&P Assessment and plan (1) S/P right hemicolectomy: Status: Acute Assessment and Plan: 87-year-old female s/p laparoscopic right hemicolectomy POD 3. Will continue with full liquid diet. Will give the patient glycerin suppository. Not ready to discharge until she has return of bowel function.
[2023-11-15] MEDS: AMLODIPINE 10 MG TABLET PO (08:34)
[2023-11-15] MEDS: METOPROLOL SUCCINATE (XL) 100 MG TAB 200 MG PO (08:34)
[2023-11-15] MEDS: lisinopriL 20 MG TABLET 40 MG PO (08:34)
[2023-11-15] MEDS: SODIUM CHLORIDE 0.9 % (FLUSH) 10 ML SYRINGE 5 ML IVF ×2 (08:34→20:11)
[2023-11-15] MEDS: bisacodyL 10 MG SUPP.RECT PR (08:35)
[2023-11-15] MEDS: ENOXAPARIN 30 MG/0.3ML INJ SUBCUT ×2 (10:14→21:34)
[2023-11-15] MEDS: OXYCODONE 5 MG TABLET PO ×2 (11:05→23:29)
--- NOTE | 2023-11-15 15:22 | PM.IMPN1 ---
Progress Note: A&P Assessment and plan (1) Colonic mass: Problem details: -presented to the ED on 11/03 w/abdominal pain. Solid enhancing cecal mass that measures up to 2 centimeters noted on imaging. There are numerous adjacent enlarged lymph nodes including a large lymph node that is partially necrotic measuring up to 3.6 cms. -EKG reviewed. No Echo indicated. -general surgery evaluated - hemicolectomy 11/12/23 - 11/13 tolerating clears. I spoke with Dr. Vargas regarding this patient today and we will be advancing her to a full liquid diet. If she tolerates this, she could advanced to a regular diet tomorrow and possibly discharge home tomorrow or the next day if doing well. - 11/14 no flatus or BM, so holding on advancing diet (staying at full liq) and giving glycerin supp. Status: Acute (2) Hyponatremia: Problem details: Na 133, stable, asymptomatic. Status: Acute (3) Uncontrolled hypertension: Problem details: three med regimen continued upon admission (pt had not taken her home meds 11/10) - restarted lisinopril, amlodipine, metoprolol 11/11. Blood pressures remain elevated, I do not think she needs an adjustment of her antihypertensive regimen at this point. Will have her follow-up as an outpatient with her primary care provider and if her blood pressures remain elevated as an outpatient, that could be considered at that time. Status: Chronic (4) Pancreatic lesion: Problem details: Enlarging 10 millimeter low-density lesion in the pancreatic head noted on CT 11/04/23 -MR abdomen recommended - can be addressed as an outpatient; I spoke with the patient and her family about this on 11/12 -lipase normal Status: Acute (5) Hyperlipidemia: Problem details: statin Status: Chronic (6) GERD (gastroesophageal reflux disease): Problem details: prilosec Status: Chronic (7) Hypokalemia: Problem details: K+ 3.4 preoperatively. 11/14 potassium today is 3.2. Give oral supplementation and recheck in the morning. Status: Acute Plan Hemicolectomy 11/11, post operative surgical recommendations per General Surgery. Pathology pending. Likely d/c home awaiting further follow up plans when able to tolerate regular diet. PT and OT evaluated. Patient not meeting criteria for SNF. Patient and family in conversations with SW today to look at self pay options. Patient will need b.i.d. enoxaparin for VTE prophylaxis for about 4 weeks. Subjective Time Seen by Provider: : Date Seen: 11/15/23 Interval history: Sylvia tells me she doesn't feel well today, but can't put her finger on it. Dr. Vargas already saw her this morning and wants her to have a bowel movement. Sylvia has not yet had any flatus or bowel movement. She denies chest pain or shortness of breath. She does have some low abdominal pain that is mild. That is nothing new and has been going on since just after surgery, she tells me. Exam Narrative: Exam Narrative: General: No acute distress. Awake, alert, oriented. No pallor. No jaundice. Oropharynx: Clear. Mucous membranes moist. Cardiovascular: Regular rate and rhythm. No murmurs, gallops, or rubs. Respiratory: Clear to auscultation bilaterally. No wheezes or crackles. Abdomen: Bowel sounds present. Soft, nondistended, mildly tender to palpation at the lower midline incision, incisions are clean, dry, and intact with no erythema or induration, no drainage. Extremities: No pedal edema. Const: Vital Signs, click to edit/add: Vital Signs - 24 hr 11/14/23 15:38 11/14/23 19:00 11/14/23 23:00 Temperature 98.1 F Pulse Rate 61 Pulse Rate [Pulse Oximeter] 90 Respiratory Rate 18 18 Blood Pressure [Le ft Arm] Blood Pressure [Ri ght Arm] 132/89 Pulse Oximetry 91 96 Oxygen Delivery Me thod Room Air Room Air Oxygen Flow Rate 11/14/23 23:00 11/14/23 23:00 11/14/23 23:00 Temperature 97.7 F Pulse Rate Pulse Rate [Pulse Oximeter] 64 64 Respiratory Rate 18 18 Blood Pressure [Le ft Arm] Blood Pressure [Ri ght Arm] 170/85 H Pulse Oximetry 96 96 Oxygen Delivery Me thod Room Air Oxygen Flow Rate 11/14/23 23:53 11/15/23 03:33 11/15/23 07:48 Temperature 97.8 F 97.6 F Pulse Rate 63 Pulse Rate [Pulse Oximeter] 75 86 Respiratory Rate 18 18 Blood Pressure [Le ft Arm] 158/79 H Blood Pressure [Ri ght Arm] 163/91 H Pulse Oximetry 91 94 Oxygen Delivery Me thod Room Air Room Air Oxygen Flow Rate 11/15/23 07:48 11/15/23 07:48 11/15/23 08:12 Temperature Pulse Rate 82 Pulse Rate [Pulse Oximeter] Respiratory Rate 18 Blood Pressure [Le ft Arm] Blood Pressure [Ri ght Arm] Pulse Oximetry 94 94 Oxygen Delivery Me thod Room Air Oxygen Flow Rate 0 11/15/23 11:00 11/15/23 14:05 11/15/23 14:40 Temperature 98.3 F 98.4 F Pulse Rate 72 Pulse Rate [Pulse Oximeter] 70 71 Respiratory Rate 18 16 Blood Pressure [Le ft Arm] 158/79 H 135/69 Blood Pressure [Ri ght Arm] Pulse Oximetry 94 95 Oxygen Delivery Me thod Room Air Room Air Oxygen Flow Rate 11/15/23 14:50 11/15/23 14:50 Temperature Pulse Rate Pulse Rate [Pulse Oximeter] Respiratory Rate 16 Blood Pressure [Le ft Arm] Blood Pressure [Ri ght Arm] Pulse Oximetry 95 95 Oxygen Delivery Me thod Room Air Oxygen Flow Rate 0 Labs Labs: Laboratory Results - last 24 hr 11/15/23 06:03 WBC 9.04 RBC 4.20 Hgb 11.5 L Hct 35.2 MCV 84 MCH 27 MCHC 33 Plt Count 397 Sodium 133 L Potassium 3.2 L Chloride 93 L Carbon Dioxide 33 H Anion Gap 7 BUN 11 Creatinine 0.6 Estimated Creat Clear 34.87 Estimated GFR 87 Glucose 108 Calcium 9.1
[2023-11-15] MEDS: POTASSIUM BICARB 25 MEQ EFFERVESCENT TAB PO ×2 (16:12→17:21)
--- NOTE | 2023-11-15 17:38 | PC.SOCIAL ---
Discharge planning: Attempted to reach andreas Vizcarra multiple times today without reaching her by phone. Met with pt who shared that she would like to go home but would also be willing to do a transitional care stay at a [place] [facility] if that was recommended. Shared with pt that at this time she does not meet criteria for Medicare to cover a stay at the [place] [facility]. Pt states she would rather go home than pay for a [place] [facility] stay, but would like to wait until tomorrow when her daughter is visiting to discuss with her daughter and get an update from the doctor about the plan after discharge. Called andreas Vizcarra and reached her at the end of the day. Shared information on care home option versus home and the Medicare guidelines. Also shared information on private pay option in a care home facility and in an enhanced assisted living unit. Andreas was appreciative of the information provided and states she will visit pt tomorrow morning around 9:30 and would like to meet with the physician and psychiatric social worker supervisor at that time to discuss discharge plans and recommended level of care. darkroom worker to follow up as needed.
--- NOTE | 2023-11-15 18:25 | PC.NURSE ---
Pt alert and oriented. Pt had no complaints of pain. Pt up with SBA with walker and gait belt. Pt had complaints of pain ranging from 0-9; see EMAR for intervention. Pt on a full liquid diet and tolerating well. Pt up to chair multiple times during shift. Pt given suppository this AM and had results midafternoon. Incisions dry and intact (steristrips).
[2023-11-15] MEDS: ACETAMINOPHEN 325 MG TABLET PO (23:29)
[2023-11-16] VITALS (11 sets, daily range): BP systolic 136–161; BP diastolic 75–96; PULSE 67–84; RESP 14–18; TEMP 36.2–36.8; O2SAT 86–98
[2023-11-16 06:31] LABS: Basophils Absolute Auto 0.04 K/uL (0.00-0.30); Basophils Percent Auto 0.6 % (0.0-3.0); Eosinophils Absolute Auto 0.22 K/uL (0.00-0.50); Eosinophils Percent Auto 3.5 % (0.0-7.0); Hematocrit 36.2 % (33.0-51.0); Hemoglobin* 11.6 gm/dL (12.0-16.0); Immature Granulocytes Abs Auto 0.07 K/uL (0.00-0.30); Immature Granulocytes Pct Auto 1.1 %; Lymphocytes Absolute Auto 1.38 K/uL (0.90-2.90); Lymphocytes Percent Auto 21.8 % (20-44); Mean Corpuscular HGB Conc 32 gm/dL (32-36); Mean Corpuscular Hemoglobin 27 pg (26-34); Mean Corpuscular Volume 85 fL (80-100); Neutrophils Absolute Auto 3.93 K/uL (1.7-7.0); Platelet Count* 436 K/uL (140-440); RDW Coefficient of Variation % 13.7 % (11.5-15.5); Red Blood Count 4.28 m/uL (4.00-5.20); White Blood Count* 6.34 K/uL (4.50-11.00)
--- NOTE | 2023-11-16 06:35 | PC.NURSE ---
End of shift note [id number]: Pt alert & oriented x 4 and continues to use call light appropriately. She transfers/ambulates with SBA using FWW and gait belt. Pt has been afebrile throughout the shift and remains on RA when awake. Pt continent of bladder with no BM noted this shift. Bowel sounds remain active in all four quadrants. IV to L AC patent and SL. PRN Oxycodone and Tylenol administered for pt report of ?8/10? back pain with rest encouraged and repositioning performed which was effective upon followup. Pt reports she is overall having less pain when compared to yesterday. No N/V noted throughout the shift. Abdominal incisions remain WILBER with steri strips intact and no s/sx of infection observed. Pt remains on telemetry with NSR noted. Oxygen 1 LPM worn when sleeping due to O2 sat of 86% on RA noted when pt asleep. ?
[2023-11-16 06:48] LABS: Slide Review Reflex No
[2023-11-16 06:54] LABS: Chloride* 96 mmol/L (96-114); Sodium* 134 mmol/L (135-149)
[2023-11-16 06:55] LABS: Potassium* 3.5 mmol/L (3.6-5.1)
[2023-11-16 06:57] LABS: Anion Gap 4 mEq/L (7-15); Carbon Dioxide* 34 mmol/L (20-32); Creatinine* 0.7 mg/dL (0.5-1.5); Est. Creatinine Clearance* 34.87; Estimated Glomerular Filt Rate 84 ml/min
[2023-11-16 06:58] LABS: Blood Urea Nitrogen* 13 mg/dL (7-30); Calcium* 8.9 mg/dL (8.4-10.6); Glucose* 95 mg/dL (60-115)
[2023-11-16] MEDS: lisinopriL 20 MG TABLET 40 MG PO (09:29)
[2023-11-16] MEDS: AMLODIPINE 10 MG TABLET PO (09:29)
[2023-11-16] MEDS: METOPROLOL SUCCINATE (XL) 100 MG TAB 200 MG PO (09:29)
[2023-11-16] MEDS: ENOXAPARIN 30 MG/0.3ML INJ SUBCUT ×2 (09:30→21:24)
[2023-11-16] MEDS: SODIUM CHLORIDE 0.9 % (FLUSH) 10 ML SYRINGE 5 ML IVF ×2 (09:30→20:40)
--- NOTE | 2023-11-16 10:29 | PM.GSPN ---
Subjective Subjective Date Seen: 11/16/23 Interval history: Patient is doing well today. She had a suppository yesterday and had a bowel movement after suppository. She does not feel like she is passing gas. She has been tolerating clears and started yogurt in the morning. She denies any nausea vomiting. Her abdominal pain is minimal. She is ambulating. Exam Narrative: Exam Narrative: Abdomen is soft, not distended, tender to palpation near the incision on the right side, midline laparotomy incision is with resolving ecchymosis was no surrounding erythema. Const: Vital Signs, click to edit/add: Vital Signs - 24 hr 11/15/23 11:00 11/15/23 14:05 11/15/23 14:40 Temperature 98.3 F 98.4 F Pulse Rate 72 Pulse Rate [Pulse Oximeter] 70 71 Respiratory Rate 18 16 Blood Pressure [Le ft Arm] 158/79 H 135/69 Blood Pressure [Ri ght Arm] Pulse Oximetry 94 95 [facility] Room Air Oxygen Flow Rate 11/15/23 14:50 11/15/23 14:50 11/15/23 19:00 Temperature 97.9 F Pulse Rate Pulse Rate [Pulse Oximeter] 67 Respiratory Rate 16 16 Blood Pressure [Le ft Arm] Blood Pressure [Ri ght Arm] 139/86 Pulse Oximetry 95 95 93 [facility] Room Air Oxygen Flow Rate 0 11/15/23 22:56 11/15/23 23:00 11/15/23 23:00 Temperature Pulse Rate 75 Pulse Rate [Pulse Oximeter] Respiratory Rate 18 Blood Pressure [Le ft Arm] Blood Pressure [Ri ght Arm] Pulse Oximetry 91 91 Oxygen Delivery [place] thod Room Air Oxygen Flow Rate 11/15/23 23:00 11/15/23 23:25 11/16/23 00:11 Temperature 97.2 F L Pulse Rate Pulse Rate [Pulse Oximeter] 75 75 Respiratory Rate 18 18 18 Blood Pressure [Le ft Arm] Blood Pressure [Ri ght Arm] 152/84 H Pulse Oximetry 91 86 L Oxygen Delivery Wa thod Room Air Room Air Oxygen Flow Rate 11/16/23 00:13 11/16/23 03:00 11/16/23 07:02 Temperature 97.8 F Pulse Rate 75 Pulse Rate [Pulse Oximeter] 67 Respiratory Rate 18 16 Blood Pressure [Le ft Arm] Blood Pressure [Ri ght Arm] 161/82 H Pulse Oximetry 90 95 Oxygen Delivery Me thod Nasal Cannula Nasal Cannula Oxygen Flow Rate 1 1 11/16/23 07:15 11/16/23 08:09 11/16/23 08:09 Temperature 97.9 F Pulse Rate Pulse Rate [Pulse Oximeter] 81 Respiratory Rate 16 16 Blood Pressure [Le ft Arm] Blood Pressure [Ri ght Arm] 157/83 H Pulse Oximetry 95 94 94 Oxygen Delivery Me thod Nasal Cannula Nasal Cannula Oxygen Flow Rate 1 1 Progress Note:A&P Assessment and plan (1) S/P right hemicolectomy: Status: Acute Assessment and Plan: 87-year-old female s/p laparoscopic right hemicolectomy POD 4. Pathology results were discussed with the patient. 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 We will advance her to regular diet. I discussed with the patient that she should advance slow even when she goes home. We can switch her DVT prophylaxis to Xarelto 10 mg daily instead of Lovenox. That will be easier for the patient to manage. I will see the patient back in clinic in 2 weeks.
--- NOTE | 2023-11-16 12:06 | P.DS_ITS ---
DS: Providers Provider Time Seen by Provider: 09:12 Date Seen: 11/16/23 Date of admission: 11/11/23 14:33 Primary care physician: Angela Mott DO Admitting Clinician: Hortensia Polo MD Consults: 11/11/23 14:33 Consult to Occupational Therapy [CONS] Routine Comment: Reason(s) for OT Consult:: Evaluate and Treat Any Restrictions?:: No Restrictions Consult to Physical Therapy [CONS] Routine Comment: Reason(s) for PT Consult:: Evaluate and Treat Any Restrictions?:: No Restrictions Consult to [place] [CONS] Routine Comment: Reason for Consult:: Social Service Consult Attending Physician on discharge: Rand Sharma MD Date of Discharge: 11/17/23 DS: Diagnosis Discharge Diagnosis (1) S/P right hemicolectomy: Status: Acute Problem details: Dr. Vargas 11/12/23 (2) Colonic mass: Status: Acute Problem details: -presented to the ED on 11/03 w/abdominal pain. Solid enhancing cecal mass that measures up to 2 centimeters noted on imaging. There are numerous adjacent enlarged lymph nodes including a large lymph node that is partially necrotic measuring up to 3.6 cms. -EKG reviewed. No Echo indicated. -general surgery evaluated - hemicolectomy 11/12/23 - 11/13 tolerating clears. I spoke with Dr. Vargas regarding this patient today and we will be advancing her to a full liquid diet. If she tolerates this, she could advanced to a regular diet tomorrow and possibly discharge home tomorrow or the next day if doing well. - 11/14 no flatus or BM, so holding on advancing diet (staying at full liq) and giving glycerin supp. -11/15 had BM, tolerating regular diet. Transition to low dose daily Xarelto for VTE prophylaxis for 4 weeks (stop enoxaparin) (3) Uncontrolled hypertension: Status: Chronic Problem details: three med regimen continued upon admission (pt had not taken her home meds 11/10) - restarted lisinopril, amlodipine, metoprolol 11/11. Blood pressures occasionally elevated, I do not think she needs an adjustment of her antihypertensive regimen at this point. Will have her follow-up as an outpatient with her primary care provider. (4) Hypokalemia: Status: Acute Problem details: K+ 3.4 preoperatively. 11/15 potassium today is 3.5. Give oral supplementation and recheck in clinic. (5) Pancreatic lesion: Status: Acute Problem details: Enlarging 10 millimeter low-density lesion in the pancreatic head noted on CT 11/04/23 -MR abdomen recommended - can be addressed as an outpatient; I spoke with the patient and her family about this on 11/12 -lipase normal (6) Hyponatremia: Status: Acute Problem details: Na 134, stable, asymptomatic. (7) Hyperlipidemia: Status: Chronic Problem details: statin (8) GERD (gastroesophageal reflux disease): Status: Chronic Problem details: prilosec DS: Summary Hospital Course Hospital Course: Per H&P: 87-year-old female with a history of longstanding hypertension, hyperlipidemia, GERD presented to the ER with ongoing abdominal pain. She was seen on November 03 with 2 months of intermittent but worsening abdominal pain. She was diagnosed with a cecal mass and was set up for an outpatient colonoscopy with general surgery. Unfortunately after her ER visit and before her colonoscopy she developed vomiting and inability to reliably take p.o.. She said she has been sustained on clear liquids and broth. She still having bowel movements and feels a bit more distended than previous. No fever, bleeding from her rectum other than from hemorrhoids. Her abdominal pain seems to be decently managed with tramadol and Tylenol. She describes a deep ache in the RLQ that goes thru to her low back. Her vomiting is nonbilious, nonbloody. She reports a 5 lb weight loss over the last 2 weeks. She is in good spirits. Solid enhancing cecal mass that measures up to 2 centimeters noted on imaging. There are numerous adjacent enlarged lymph nodes including a large lymph node that is partially necrotic measuring up to 3.6 cms. -general surgery evaluated - hemicolectomy am of 11/12/23 Diet advanced slowly afterward with flatus on 11/14 and BM 11/15. 11/15 she refused to eat a regular diet. Not c/o any increased pain or new symptoms. Holding off on discharge home. Outpatient MR abdomen recommended to f/u on pancreatic lesion. Time Spent with Patient Time attestation: Total time spent providing and/or coordinating discharge services: Exam Narrative: Exam Narrative: General: No acute distress. Awake, alert, oriented. No pallor. No jaundice. Oropharynx: Clear. Mucous membranes moist. Cardiovascular: Regular rate and rhythm. No murmurs, gallops, or rubs. Respiratory: Clear to auscultation bilaterally. No wheezes or crackles. Abdomen: Bowel sounds present. Soft, nondistended, mildly tender to palpation at the lower midline incision, unchanged, incisions are clean, dry, and intact with no erythema or induration, no drainage. Extremities: No pedal edema. Const: Vital Signs, click to edit/add: Vital Signs - 24 hr 11/15/23 14:05 11/15/23 14:40 11/15/23 14:50 Temperature 98.4 F Pulse Rate 72 Pulse Rate [Pulse Oximeter] 71 Respiratory Rate 16 Blood Pressure [Le ft Arm] 135/69 Blood Pressure [Ri ght Arm] Pulse Oximetry 95 95 Oxygen Delivery Me thod Room Air Oxygen Flow Rate 11/15/23 14:50 11/15/23 19:00 11/15/23 22:56 Temperature 97.9 F Pulse Rate 75 Pulse Rate [Pulse Oximeter] 67 Respiratory Rate 16 16 Blood Pressure [Le ft Arm] Blood Pressure [Ri ght Arm] 139/86 Pulse Oximetry 95 93 Oxygen Delivery Me thod Room Air Room Air Oxygen Flow Rate 0 11/15/23 23:00 11/15/23 23:00 11/15/23 23:00 Temperature Pulse Rate Pulse Rate [Pulse Oximeter] 75 Respiratory Rate 18 18 Blood Pressure [Le ft Arm] Blood Pressure [Ri ght Arm] Pulse Oximetry 91 91 Oxygen Delivery Me thod Room Air Oxygen Flow Rate 11/15/23 23:25 11/16/23 00:11 11/16/23 00:13 Temperature 97.2 F L Pulse Rate Pulse Rate [Pulse Oximeter] 75 Respiratory Rate 18 18 18 Blood Pressure [Le ft Arm] Blood Pressure [Ri ght Arm] 152/84 H Pulse Oximetry 91 86 L 90 Oxygen Delivery Me thod Room Air Room Air Nasal Cannula Oxygen Flow Rate 1 11/16/23 03:00 11/16/23 07:02 11/16/23 07:15 Temperature 97.8 F Pulse Rate 75 Pulse Rate [Pulse Oximeter] 67 Respiratory Rate 16 Blood Pressure [Le ft Arm] Blood Pressure [Ri ght Arm] 161/82 H Pulse Oximetry 95 95 Oxygen Delivery Me thod Nasal Cannula Oxygen Flow Rate 1 11/16/23 08:09 11/16/23 08:09 11/16/23 11:53 Temperature 97.9 F 97.4 F L Pulse Rate Pulse Rate [Pulse Oximeter] 81 71 Respiratory Rate 16 16 16 Blood Pressure [Le ft Arm] 139/76 Blood Pressure [Ri ght Arm] 157/83 H Pulse Oximetry 94 94 95 Oxygen Delivery Me thod Nasal Cannula Nasal Cannula Room Air Oxygen Flow Rate 1 1 DS: Data Data Completed and Pending Completed studies during hospitalization: 11/11/2023 EKG 9:53 a.m.: Sinus rhythm with premature supraventricular complexes, 91 beats per minute, left axis deviation, minimal voltage criteria for LVH, maybe normal variant, cannot rule out anterior infarct, age undetermined, a bnormal EKG. 11/11/2023 4:04 p.m. EKG: Normal sinus rhythm, 85 beats per minute, left axis deviation, cannot rule out anterior infarct, age undetermined. Ordering Physician: Andres Sharpe D.O. Date of Service: 11/11/23 Procedure(s): CT abdomen pelvis w con Accession Number(s): [id number] cc: Andres Sharpe D.O.; Angela Mott D.O.~ For Patients: As a result of the Century Cures Act, medical imaging exams and procedure reports are released immediately into your electronic medical record. You may view this report before your referring provider. If you have questions, please contact your health care provider. Indication: Constipation and bloating Technique: CT abdomen/pelvis with IV contrast, 75 mL Isovue 370 Comparison: CT abdomen/pelvis on November 04, 2023 Findings: Lung bases: Stable 3 millimeter subpleural right lower lobe nodule on series 3, image 3. Previously visualized 3 millimeter subpleural nodule in the medial right lower lobe on prior examination is not seen on this exam. Liver: Normal. No mass. Gallbladder and bile ducts: Cholecystectomy. [place] effect biliary ductal dilatation with smooth tapering down towards the ampulla. Pancreas: Similar-appearing 7 x 10 millimeter low-density lesion in the pancreatic head. Stable well-circumscribed 1.8 x 2.1 centimeter fluid density lesion in the posterior superior pancreatic head. Normal pancreatic parenchymal enhancement. No pancreatitis. The pancreatic duct is not dilated. Spleen: Normal. Adrenal glands: Normal. Kidneys: Normal parenchyma. Stable simple appearing renal cysts. No solid renal mass. No calculi. No urinary tract dilation. Urinary bladder: Unremarkable. Pelvis: Senescent appearance of the uterus and both ovaries. Vessels: Atherosclerotic vascular calcifications. Patent mesenteric vessels. Bowel: There is redemonstration of a solid enhancing cecal mass that measures up to 2 centimeters. The appendix is within normal limits in appearance. There are numerous adjacent enlarged lymph nodes including a large lymph node that is partially necrotic measuring up to 3.6 centimeters. No dilated or inflamed small bowel. Distal colonic diverticulosis without diverticulitis. Lymph nodes: Right lower quadrant mesenteric metastatic adenopathy. No gastrohepatic, periportal, retroperitoneal, pelvic, or inguinal adenopathy. Peritoneum: No ascites. No free air. Abdominal wall: No hernia. Bones: No fractures. No suspicious osseous lesions. Advanced degenerative change in the lumbar spine. Impression: 1. No CT evidence of an acute process involving the abdomen or pelvis. 2. Solid enhancing cecal mass consistent with a primary colon cancer with mesenteric adenopathy. 3. Stable pancreatic lesions. Please note that all CT scans at this facility use dose modulation, iterative reconstruction, and/or weight-based dosing when appropriate to reduce radiation dose to as low as reasonably achievable. Dictated by Rosales Hester MD @ 11/11/2023 12:10:05 PM (Electronically Signed) Labs on day of discharge: Labs from last 24 hours 11/16/23 05:50 WBC 6.34 RBC 4.28 Hgb 11.6 L Hct 36.2 MCV 85 MCH 27 MCHC 32 RDW Coeff of Galo 13.7 Plt Count 436 Neut % (Auto) 62.0 Lymph % (Auto) 21.8 [place] % (Auto) 11.0 Eos % (Auto) 3.5 Baso % (Auto) 0.6 Neut # (Auto) 3.93 Lymph # (Auto) 1.38 [place] # (Auto) 0.70 Eos # (Auto) 0.22 Baso # (Auto) 0.04 Abs Immat Gran (auto) 0.07 Imm/Tot Granulo (auto) 1.1 Sodium 134 L Potassium 3.5 L Chloride 96 Carbon Dioxide 34 H Anion Gap 4 L BUN 13 Creatinine 0.7 Estimated Creat Clear 34.87 Estimated GFR 84 Glucose 95 Calcium 8.9 TSH 3.250 Discharge Plan Discharge Disposition: Home, Self-Care Date of Admission: 11/11/23 14:33 Attending Provider on Discharge: Isaiah Vargas Consulting Providers: Rand Sharma Primary Care Provider: Angela Mott Condition: Improved Discharge Medications: New oxycodone 5 mg capsule 5 mg PO Q8H PRN (Reason: pain) Qty: 14 0RF Xarelto 10 mg Tablet 10 mg PO DAILY Qty: 30 0RF Continued ibandronate 150 mg tablet 150 mg PO .Every 30 Days lisinopril 40 mg tablet 40 mg PO DAILY omeprazole 20 mg capsule,delayed release(DR/EC) 20 mg PO DAILY ferrous sulfate 325 mg (65 mg iron) tablet 65 mg PO DAILY amlodipine 10 mg tablet 10 mg PO DAILY metoprolol succinate 200 mg tablet extended release 24 hr 200 mg PO DAILY atorvastatin 10 mg tablet 10 mg PO HS cholecalciferol (vitamin D3) [Vitamin D3] 25 mcg (1,000 unit) tablet 25 mcg PO DAILY fexofenadine [Allergy Relief (fexofenadine)] 180 mg tablet 180 mg PO DAILY polyethylene glycol 3350 17 gram/dose powder 8.5 g PO DAILY ondansetron 4 mg tablet,disintegrating 4 mg PO Q8H PRN (Reason: nausea) Discontinued tramadol 50 mg tablet 50 mg PO BID PRN (Reason: pain) Activity Level: No strenuous activity Discharge Diet: Regular Follow Up Appointments: Isaiah Vargas MD [Staff Physician] - Forms: [employer] [facility] Info Instructions
[2023-11-16] MEDS: POTASSIUM BICARB 25 MEQ EFFERVESCENT TAB PO ×2 (12:59→14:37)
--- NOTE | 2023-11-16 16:28 | P.IMPN_ITS ---
Progress Note: A&P Assessment and plan (1) Colonic mass: Problem details: -presented to the ED on 11/03 w/abdominal pain. Solid enhancing cecal mass that measures up to 2 centimeters noted on imaging. There are numerous adjacent enlarged lymph nodes including a large lymph node that is partially necrotic measuring up to 3.6 cms. -EKG reviewed. No Echo indicated. -general surgery evaluated - hemicolectomy 11/12/23 - 11/13 tolerating clears. I spoke with Dr. Vargas regarding this patient today and we will be advancing her to a full liquid diet. If she tolerates this, she could advanced to a regular diet tomorrow and possibly discharge home tomorrow or the next day if doing well. - 11/14 no flatus or BM, so holding on advancing diet (staying at full liq) and giving glycerin supp. -11/15 had BM, Not yet tolerating regular diet. Encouraged frequent ambulation and PO intake. Transition to low dose daily Xarelto for VTE prophylaxis for 4 weeks (stop enoxaparin). Status: Acute (2) Hyponatremia: Problem details: Na 134, stable, asymptomatic. Status: Acute (3) Uncontrolled hypertension: Problem details: three med regimen continued upon admission (pt had not taken her home meds 11/10) - restarted lisinopril, amlodipine, metoprolol 11/11. Blood pressures occasionally elevated, I do not think she needs an adjustment of her antihypertensive regimen at this point. Will have her follow-up as an outpatient with her primary care provider. Status: Chronic (4) Pancreatic lesion: Problem details: Enlarging 10 millimeter low-density lesion in the pancreatic head noted on CT 11/04/23 -MR abdomen recommended - can be addressed as an outpatient; I spoke with the patient and her family about this on 11/12 -lipase normal Status: Acute (5) Hyperlipidemia: Problem details: statin Status: Chronic (6) GERD (gastroesophageal reflux disease): Problem details: prilosec Status: Chronic (7) Hypokalemia: Problem details: K+ 3.4 preoperatively. 11/15 potassium today is 3.5. Give oral supplementation and recheck in am. Status: Acute Subjective Time Seen by Provider: 14:33 Date Seen: 11/16/23 Interval history: Sylvia was feeling well this morning. I discussed homegoing with patient and children and their husbands. They were comfortable with her going home when tolerating a regular diet. We discussed having one of her friends doing lovenox injections for her, but later Dr. Vargas stated that she could be on low dose Xarelto for VTE prophylaxis instead, so I let patient know that. Sylvia was hesistant to go home today and doesn't want to go until tomorrow. Staff notified me that Sylvia refused to eat a regular diet today and only ordered Ensure for lunch. She is not having any new symptoms or worsening pain. Exam Narrative: Exam Narrative: General: No acute distress. Awake, alert, oriented. No pallor. No jaundice. Oropharynx: Clear. Mucous membranes moist. Cardiovascular: Regular rate and rhythm. No murmurs, gallops, or rubs. Respiratory: Clear to auscultation bilaterally. No wheezes or crackles. Abdomen: Bowel sounds present. Soft, nondistended, mildly tender to palpation at the lower midline incision, unchanged, incisions are clean, dry, and intact with no erythema or induration, no drainage. Extremities: No pedal edema. Const: Vital Signs, click to edit/add: Vital Signs - 24 hr 11/15/23 19:00 11/15/23 22:56 11/15/23 23:00 Temperature 97.9 F Pulse Rate 75 Pulse Rate [Pulse Oximeter] 67 Respiratory Rate 16 Blood Pressure [Le ft Arm] Blood Pressure [Ri ght Arm] 139/86 Pulse Oximetry 93 91 Oxygen Delivery Me thod Room Air Oxygen Flow Rate 11/15/23 23:00 11/15/23 23:00 11/15/23 23:25 Temperature 97.2 F L Pulse Rate Pulse Rate [Pulse Oximeter] 75 75 Respiratory Rate 18 18 18 Blood Pressure [Le ft Arm] Blood Pressure [Ri ght Arm] 152/84 H Pulse Oximetry 91 91 Oxygen Delivery Me thod Room Air Room Air Oxygen Flow Rate 11/16/23 00:11 11/16/23 00:13 11/16/23 03:00 Temperature 97.8 F Pulse Rate Pulse Rate [Pulse Oximeter] 67 Respiratory Rate 18 18 16 Blood Pressure [Le ft Arm] Blood Pressure [Ri ght Arm] 161/82 H Pulse Oximetry 86 L 90 95 Oxygen Delivery Me thod Room Air Nasal Cannula Nasal Cannula Oxygen Flow Rate 1 1 11/16/23 07:02 11/16/23 07:15 11/16/23 08:09 Temperature Pulse Rate 75 Pulse Rate [Pulse Oximeter] Respiratory Rate 16 Blood Pressure [Le ft Arm] Blood Pressure [Ri ght Arm] Pulse Oximetry 95 94 Oxygen Delivery Me thod Nasal Cannula Oxygen Flow Rate 1 11/16/23 08:09 11/16/23 11:53 Temperature 97.9 F 97.4 F L Pulse Rate Pulse Rate [Pulse Oximeter] 81 71 Respiratory Rate 16 16 Blood Pressure [Le ft Arm] 139/76 Blood Pressure [Ri ght Arm] 157/83 H Pulse Oximetry 94 95 Oxygen Delivery Me thod Nasal Cannula Room Air Oxygen Flow Rate 1 Labs Labs: Laboratory Results - last 24 hr 11/16/23 05:50 WBC 6.34 RBC 4.28 Hgb 11.6 L Hct 36.2 MCV 85 MCH 27 MCHC 32 RDW Coeff of Galo 13.7 Plt Count 436 Neut % (Auto) 62.0 Lymph % (Auto) 21.8 [place] % (Auto) 11.0 Eos % (Auto) 3.5 Baso % (Auto) 0.6 Neut # (Auto) 3.93 Lymph # (Auto) 1.38 [place] # (Auto) 0.70 Eos # (Auto) 0.22 Baso # (Auto) 0.04 Abs Immat Gran (auto) 0.07 Imm/Tot Granulo (auto) 1.1 Sodium 134 L Potassium 3.5 L Chloride 96 Carbon Dioxide 34 H Anion Gap 4 L BUN 13 Creatinine 0.7 Estimated Creat Clear 34.87 Estimated GFR 84 Glucose 95 Calcium 8.9 TSH 3.250
[2023-11-16] MEDS: bisacodyL 10 MG SUPP.RECT PR (16:53)
--- NOTE | 2023-11-16 18:56 | PC.NURSE ---
End of shift: Assumed care of patient from [id number]. Pt is A&O, afebrile and VSS. She c/o 6/10 back pain in which an Aqua-K pad was provided to her this afternoon. She is SBA with 2ww for ambulation and transfers. Midline incision C/D with steri-strips intact. PIV in left AC is SL and C/D/I. Pt abdomen is soft, tender and distended. She requested a PRN suppository this afternoon d/t abdominal discomfort and nausea. Pt declined PRN Zofran for nausea, only wanted suppository. Last BM was 11/14 after supp. She was advanced to a regular diet today but had no interest in attempting solid foods. Nurse provided education on the need to attempt solid foods in order to promote bowel movements. TELE reads SR with BBB.?
[2023-11-16] MEDS: ACETAMINOPHEN 325 MG TABLET PO (20:40)
[2023-11-17] VITALS (8 sets, daily range): BP systolic 136–160; BP diastolic 75–90; PULSE 72–84; RESP 12–24; TEMP 36.7–37.1; O2SAT 92–96
[2023-11-17] MEDS: ACETAMINOPHEN 325 MG TABLET PO ×2 (05:53→18:46)
[2023-11-17 06:43] LABS: Chloride* 96 mmol/L (96-114); Potassium* 3.7 mmol/L (3.6-5.1); Sodium* 133 mmol/L (135-149)
[2023-11-17 06:46] LABS: Anion Gap 7 mEq/L (7-15); Carbon Dioxide* 30 mmol/L (20-32); Creatinine* 0.6 mg/dL (0.5-1.5); Est. Creatinine Clearance* 34.87; Estimated Glomerular Filt Rate 87 ml/min
[2023-11-17 06:47] LABS: Blood Urea Nitrogen* 16 mg/dL (7-30); Calcium* 8.8 mg/dL (8.4-10.6); Glucose* 94 mg/dL (60-115)
--- NOTE | 2023-11-17 06:53 | PC.NURSE ---
End of shift note [id number]: Pt remains alert & oriented x 4 and able to make needs known. 4/10 back pain effectively treated with PRN Tylenol, ice pack, rest and repositioning. Pt later reported back pain again, rating pain 9/10 though requested to take PRN Tylenol instead of PRN Oxycodone and refused ice pack when offered. Pt continues to transfer with SBA using FWW and gait belt. VSS and pt has been afebrile. No vomiting noted this shift. Pt had one c/o nausea though refused PRN Zofran when offered. Pt remains on tele with NSR with BBB noted. Pt noted to have had two liquid stools last throughout the shift per [place] documentation and she remains continent of bladder. IV to L AC patent and SL. Incisions to abdomen remain WILBER with steri strips in place with no s/s of infection. Staff continue to encourage regular diet with pt.?
--- NOTE | 2023-11-17 09:00 | PM.GSPN ---
Subjective Subjective Date Seen: 11/17/23 Interval history: Patient is doing well. She tolerated regular diet. Denies nausea vomiting. Her pain is minimal. She is ambulating. Exam Narrative: Exam Narrative: Abdomen is soft, not distended but protuberant, not tender to palpation. Incisions are with clean Steri-Strips and no surrounding erythema. Const: Vital Signs, click to edit/add: Vital Signs - 24 hr 11/16/23 11:53 11/16/23 15:00 11/16/23 15:00 Temperature 97.4 F L Pulse Rate 69 Pulse Rate [Pulse Oximeter] 71 Respiratory Rate 16 Blood Pressure [Le ft Arm] 139/76 Blood Pressure [Ri ght Arm] Pulse Oximetry 95 95 Oxygen Delivery Me thod Room Air 11/16/23 15:00 11/16/23 15:00 11/16/23 15:00 Temperature 98.3 F Pulse Rate Pulse Rate [Pulse Oximeter] 69 69 Respiratory Rate 18 18 18 Blood Pressure [Le ft Arm] Blood Pressure [Ri ght Arm] 157/76 H Pulse Oximetry 95 95 Oxygen Delivery Me thod Room Air Room Air 11/16/23 20:34 11/16/23 22:31 11/16/23 22:31 Temperature 97.9 F Pulse Rate Pulse Rate [Pulse Oximeter] 76 70 Respiratory Rate 14 16 Blood Pressure [Le ft Arm] Blood Pressure [Ri ght Arm] 136/75 Pulse Oximetry 91 98 Oxygen Delivery Me thod Room Air 11/16/23 22:31 11/16/23 22:31 11/16/23 23:02 Temperature 97.2 F L Pulse Rate 84 Pulse Rate [Pulse Oximeter] 70 Respiratory Rate 16 16 Blood Pressure [Le ft Arm] Blood Pressure [Ri ght Arm] 153/96 H Pulse Oximetry 98 98 Oxygen Delivery Me thod Room Air Room Air 11/17/23 03:40 11/17/23 08:00 11/17/23 08:00 Temperature 98.3 F Pulse Rate Pulse Rate [Pulse Oximeter] 81 Respiratory Rate 16 16 Blood Pressure [Le ft Arm] Blood Pressure [Ri ght Arm] 158/82 H Pulse Oximetry 92 94 94 Oxygen Delivery Me thod Room Air Room Air 11/17/23 08:00 Temperature 98.7 F Pulse Rate Pulse Rate [Pulse Oximeter] Respiratory Rate Blood Pressure [Le ft Arm] Blood Pressure [Ri ght Arm] 136/90 H Pulse Oximetry 96 Oxygen Delivery Me thod Room Air Progress Note:A&P Assessment and plan (1) S/P right hemicolectomy: Status: Acute Assessment and Plan: 87-year-old female s/p laparoscopic right hemicolectomy. Patient is rated to be discharged from surgery standpoint. She will be discharged home on Xarelto 10 mg for 4 weeks.
[2023-11-17] MEDS: lisinopriL 20 MG TABLET 40 MG PO (09:06)
[2023-11-17] MEDS: METOPROLOL SUCCINATE (XL) 100 MG TAB 200 MG PO (09:06)
[2023-11-17] MEDS: AMLODIPINE 10 MG TABLET PO (09:06)
[2023-11-17] MEDS: RIVAROXABAN 10 MG TABLET PO (09:06)
--- NOTE | 2023-11-17 10:10 | NUTR.NU ---
RDN with diet education related to low fiber/surgical soft diet. Patient is s/p laparoscopic right hemicolectomy POD 5. Her diet is advance to Regular and she is tolerating well. Weight has dropped 5 lbs since admit, which is significant weight loss at 3%. Suspect weight loss is due to surgery and NPO/Clear diet. RDN visited with patient whom reports tolerating breakfast well this morning of cream of wheat. She agreed to receive diet education related to low fiber diet. Patient was provided diet education on a low fiber diet. Discussed foods to include and foods to avoid until MD recommends advancing diet to Regular. Verbal and written information as well as sample menus provided from [facility]. Patient verbalized understanding. RDN's contact information was provided and patient was encouraged to contact RDN with questions.
--- NOTE | 2023-11-17 11:22 | PC.SOCIAL ---
Addendum entered by HIRAL Luciano 11/17/23 16:45: Received an e-mail from Jacqueline Bird at the [facility] ([facility]). [place] (Nurse) will come tomorrow morning to complete a face to face. If they accept they can take patient tomorrow. Met with patient and provided update on discharge plan. Provided patient with a list of agencies that provide life alert services. Phone call to patient's daughter Carmita and nahid a voicemail providing an update. Update to charge nurse. Original Note: Discharge planning- Met with patient and patient's daughter Carmita and Nazario to discuss discharge plans. Patient is wanting to go to facility before returning home as patient informs she does not believe her daughter can provide the care for her that she needs. Explained to patient that she does not have a skilled need to go to a SNF under medicare, so patient would have to private pay for a facility. Patient understands and agrees to private pay. Provided patient with information on [facility] enhanced assisted living. Patient is interested in admitting to enhanced assisted living. Informed patient that this worker will reach out to the enhanced assisted living and provide a referral. Secure e-mail to Laverne JamesRN, Director of Health Services) to provide a referral. Confirmed referral was received an is being reviewed. Social work will continue to follow up as needed.
--- NOTE | 2023-11-17 13:01 | PM.IMPN1 ---
Progress Note: A&P Assessment and plan (1) S/P right hemicolectomy: Problem details: Dr. Vargas 11/12/23 Status: Acute (2) Colonic mass: Problem details: -presented to the ED on 11/03 w/abdominal pain. Solid enhancing cecal mass that measures up to 2 centimeters noted on imaging. There are numerous adjacent enlarged lymph nodes including a large lymph node that is partially necrotic measuring up to 3.6 cms. -EKG reviewed. No Echo indicated. -general surgery evaluated - hemicolectomy 11/12/23 - 11/13 tolerating clears. I spoke with Dr. Vargas regarding this patient today and we will be advancing her to a full liquid diet. If she tolerates this, she could advanced to a regular diet tomorrow and possibly discharge home tomorrow or the next day if doing well. - 11/14 no flatus or BM, so holding on advancing diet (staying at full liq) and giving glycerin supp. -11/15 had BM, Not yet tolerating regular diet. Encouraged frequent ambulation and PO intake. Transition to low dose daily Xarelto for VTE prophylaxis for 4 weeks (stop enoxaparin). 11/16: Medically ready for discharge awaiting placement Status: Acute (3) Abdominal pain: Problem details: -appendix looks unremarkable on 11/10 image (some concern on 11/03) -no acute findings on 11/10 imaging -as she is not tolerating PO or prep - decision to admit for surgery made 11/11/23 (Mara Vargas - general surgery) Continue perioperative pain management as needed Status: Acute (4) Uncontrolled hypertension: Problem details: three med regimen continued upon admission (pt had not taken her home meds 11/10) - restarted lisinopril, amlodipine, metoprolol 11/11. Blood pressures occasionally elevated, I do not think she needs an adjustment of her antihypertensive regimen at this point. Will have her follow-up as an outpatient with her primary care provider. Status: Chronic (5) Hypokalemia: Problem details: K+ 3.4 preoperatively. 11/15 potassium today is 3.5. Give oral supplementation and recheck in am. Status: Acute (6) Hyponatremia: Problem details: Na 134, stable, asymptomatic. Status: Acute (7) Pancreatic lesion: Problem details: Enlarging 10 millimeter low-density lesion in the pancreatic head noted on CT 11/04/23 -MR abdomen recommended - can be addressed as an outpatient; I spoke with the patient and her family about this on 11/12 -lipase normal Status: Acute (8) Hyperlipidemia: Problem details: statin Status: Chronic (9) GERD (gastroesophageal reflux disease): Problem details: prilosec Status: Chronic Plan awaiting SNF TCU Subjective Date Seen: 11/17/23 Interval history: no acute events overnight patient tolerating diet medically stable for discharge family want SNF Exam Narrative: Exam Narrative: Gen: no acute distress HEENT: NCAT EOMI mmm CV: RRR normal s1 s2 Lungs: CTAB Abd: Soft,nt, nd Neuro: Alert, oriented, CN grossly intact; nonfocal screening?exam Psych: appropriate affect MSK: age appropriate muscle mass Skin; Warm, dry no rash on face Const: Vital Signs, click to edit/add: Vital Signs - 24 hr 11/16/23 15:00 11/16/23 15:00 11/16/23 15:00 Temperature Pulse Rate 69 Pulse Rate [Pulse Oximeter] 69 Respiratory Rate 18 Blood Pressure [Le ft Arm] Blood Pressure [Ri ght Arm] Pulse Oximetry 95 Oxygen Delivery Me thod 11/16/23 15:00 11/16/23 15:00 11/16/23 20:34 Temperature 98.3 F 97.9 F Pulse Rate Pulse Rate [Pulse Oximeter] 69 76 Respiratory Rate 18 18 14 Blood Pressure [Le ft Arm] Blood Pressure [Ri ght Arm] 157/76 H 136/75 Pulse Oximetry 95 95 91 Oxygen Delivery Me thod Room Air Room Air Room Air 11/16/23 22:31 11/16/23 22:31 11/16/23 22:31 Temperature Pulse Rate Pulse Rate [Pulse Oximeter] 70 Respiratory Rate 16 16 Blood Pressure [Le ft Arm] Blood Pressure [Ri ght Arm] Pulse Oximetry 98 98 Oxygen Delivery Me thod Room Air 11/16/23 22:31 11/16/23 23:02 11/17/23 03:40 Temperature 97.2 F L 98.3 F Pulse Rate 84 Pulse Rate [Pulse Oximeter] 70 81 Respiratory Rate 16 16 Blood Pressure [Le ft Arm] Blood Pressure [Ri ght Arm] 153/96 H 158/82 H Pulse Oximetry 98 92 Oxygen Delivery Me thod Room Air Room Air 11/17/23 08:00 11/17/23 08:00 11/17/23 08:00 Temperature 98.7 F Pulse Rate Pulse Rate [Pulse Oximeter] Respiratory Rate 16 Blood Pressure [Le ft Arm] Blood Pressure [Ri ght Arm] 136/90 H Pulse Oximetry 94 94 96 Oxygen Delivery Me thod Room Air Room Air 11/17/23 12:17 Temperature 98.7 F Pulse Rate Pulse Rate [Pulse Oximeter] 77 Respiratory Rate 24 Blood Pressure [Le ft Arm] 151/75 H Blood Pressure [Ri ght Arm] Pulse Oximetry 93 Oxygen Delivery Me thod Room Air Labs Labs: Laboratory Results - last 24 hr 11/17/23 Unknown Sodium 133 L Potassium 3.7 Chloride 96 Carbon Dioxide 30 Anion Gap 7 BUN 16 Creatinine 0.6 Estimated Creat Clear 34.87 Estimated GFR 87 Glucose 94 Calcium 8.8
--- NOTE | 2023-11-17 19:09 | PC.NURSE ---
End of Shift: The patient is alert and orientated... very pleasant with interactions. Reports mild to moderate abdominal pain throughout the day. Well managed with PRN Tylenol per the patients request. Steri strips CDI to abdomen, the patient showered this afternoon and tolerated this well. The patient is moving SBA w/ RW. Pending acceptance to facility for rehab stay. Calls appropriately. Regular diet... although her appetite is poor. Encouraged her to eat more solid foods. Marjan PELAEZ BSN
[2023-11-17] MEDS: SODIUM CHLORIDE 0.9 % (FLUSH) 10 ML SYRINGE 5 ML IVF (21:17)
[2023-11-18] MEDS: ACETAMINOPHEN 325 MG TABLET PO (00:16)
[2023-11-18 02:18] VITALS: BP 170/88; PULSE 70; RESP 18; TEMP 36.6; O2SAT 97
[2023-11-18 05:39] VITALS: BP 170/88; PULSE 70; RESP 18; TEMP 36.6; O2SAT 97
--- NOTE | 2023-11-18 05:42 | PC.NURSE ---
Shift note: Pt had 2x loose stool tonight. Alert and oriented. Ambulated with A1 to SBA with walker and GB. She tolerated regular diet well. Vitally stable.
[2023-11-18 08:30] VITALS: RESP 16; O2SAT 98
[2023-11-18 08:36] VITALS: BP 144/71; PULSE 90; RESP 16
[2023-11-18] MEDS: AMLODIPINE 10 MG TABLET PO (08:37)
[2023-11-18] MEDS: METOPROLOL SUCCINATE (XL) 100 MG TAB 200 MG PO (08:37)
[2023-11-18] MEDS: lisinopriL 20 MG TABLET 40 MG PO (08:37)
[2023-11-18] MEDS: RIVAROXABAN 10 MG TABLET PO (08:38)
--- NOTE | 2023-11-18 10:08 | PM.DS1 ---
DS: Providers Provider Date Seen: 11/18/23 Date of admission: 11/11/23 14:33 Primary care physician: Angela Mott DO Admitting Clinician: Hortensia Polo MD Consults: 11/11/23 14:33 Consult to Occupational Therapy [CONS] Routine Comment: Reason(s) for OT Consult:: Evaluate and Treat Any Restrictions?:: No Restrictions Consult to Physical Therapy [CONS] Routine Comment: Reason(s) for PT Consult:: Evaluate and Treat Any Restrictions?:: No Restrictions Consult to [employer] [CONS] Routine Comment: Reason for Consult:: Social Service Consult Attending Physician on discharge: Adrian Paniagua Date of Discharge: 11/18/23 DS: Diagnosis Discharge Diagnosis (1) S/P right hemicolectomy: Status: Acute Problem details: Dr. Vargas 11/12/23 DS: Summary Hospital Course Hospital Course: Per H&P: 87-year-old female with a history of longstanding hypertension, hyperlipidemia, GERD presented to the ER with ongoing abdominal pain. She was seen on November 03 with 2 months of intermittent but worsening abdominal pain. She was diagnosed with a cecal mass and was set up for an outpatient colonoscopy with general surgery. Unfortunately after her ER visit and before her colonoscopy she developed vomiting and inability to reliably take p.o.. She said she has been sustained on clear liquids and broth. She still having bowel movements and feels a bit more distended than previous. No fever, bleeding from her rectum other than from hemorrhoids. Her abdominal pain seems to be decently managed with tramadol and Tylenol. She describes a deep ache in the RLQ that goes thru to her low back. Her vomiting is nonbilious, nonbloody. She reports a 5 lb weight loss over the last 2 weeks. She is in good spirits. Solid enhancing cecal mass that measures up to 2 centimeters noted on imaging. There are numerous adjacent enlarged lymph nodes including a large lymph node that is partially necrotic measuring up to 3.6 cms. -general surgery evaluated - hemicolectomy am of 11/12/23 Diet advanced slowly afterward with flatus on 11/14 and BM 11/15. 11/15 she refused to eat a regular diet. Not c/o any increased pain or new symptoms. Holding off on discharge home. Outpatient MR abdomen recommended to f/u on pancreatic lesion. Assessment and plan (1) S/P right hemicolectomy: Problem details: Dr. Vargas 11/12/23 Status: Acute (2) Colonic mass: Problem details: -presented to the ED on 11/03 w/abdominal pain. Solid enhancing cecal mass that measures up to 2 centimeters noted on imaging. There are numerous adjacent enlarged lymph nodes including a large lymph node that is partially necrotic measuring up to 3.6 cms. (4) Uncontrolled hypertension: Problem details: three med regimen continued upon admission (pt had not taken her home meds 11/10) - restarted lisinopril, amlodipine, metoprolol 11/11. Blood pressures occasionally elevated, I do not think she needs an adjustment of her antihypertensive regimen at this point. Will have her follow-up as an outpatient with her primary care provider. Status: Chronic (5) Hypokalemia: Problem details:3.7 at discharge Status: Acute (6) Hyponatremia: Problem details: Na 133, stable, asymptomatic. Status: Acute (7) Pancreatic lesion: Problem details: Enlarging 10 millimeter low-density lesion in the pancreatic head noted on CT 11/04/23 -MR abdomen recommended - can be addressed as an outpatient; I spoke with the patient and her family about this on 11/12 -lipase normal Status: Acute (8) Hyperlipidemia: Problem details: statin Status: Chronic (9) GERD (gastroesophageal reflux disease): Problem details: prilosec Status: Chronic Time Spent with Patient Time attestation: Total time spent providing and/or coordinating discharge services: Exam Narrative: Exam Narrative: Gen: no acute distress HEENT: NCAT EOMI mmm Neck: Supple CV: RRR normal s1 s2 Lungs: CTAB Abd: Soft,nt, nd Neuro: Alert, oriented, moves extremities Psych: appropriate affect MSK: age appropriate muscle mass Skin; Warm, dry no rash on face Const: Vital Signs, click to edit/add: Vital Signs - 24 hr 11/17/23 12:17 11/17/23 16:00 11/17/23 16:00 Temperature 98.7 F 98.6 F Pulse Rate [Pulse Oximeter] 77 84 Respiratory Rate 24 12 Blood Pressure [Le ft Arm] 151/75 H 138/78 Blood Pressure [Ri ght Arm] Pulse Oximetry 93 95 95 Oxygen Delivery Me thod Room Air Room Air Room Air 11/17/23 21:35 11/17/23 22:49 11/17/23 22:49 Temperature 98.1 F Pulse Rate [Pulse Oximeter] 75 72 Respiratory Rate 14 16 Blood Pressure [Le ft Arm] Blood Pressure [Ri ght Arm] 140/81 H Pulse Oximetry 95 95 Oxygen Delivery Me thod Room Air Room Air 11/17/23 23:00 11/18/23 02:18 11/18/23 05:39 Temperature 98.2 F 98 F Pulse Rate [Pulse Oximeter] 72 70 70 Respiratory Rate 16 18 18 Blood Pressure [Le ft Arm] Blood Pressure [Ri ght Arm] 160/80 H 170/88 H Pulse Oximetry 95 97 Oxygen Delivery De thod Room Air Room Air 11/18/23 05:39 11/18/23 05:39 11/18/23 08:36 Temperature 98 F Pulse Rate [Pulse Oximeter] 70 90 Respiratory Rate 18 18 16 Blood Pressure [Le ft Arm] 144/71 H Blood Pressure [Ri ght Arm] 170/88 H Pulse Oximetry 97 97 Oxygen Delivery De thod Room Air Room Air DS: Data Additional Comments Additional comments: CT abdomen Impression: 1. No CT evidence of an acute process involving the abdomen or pelvis. 2. Solid enhancing cecal mass consistent with a primary colon cancer with mesenteric adenopathy. 3. Stable pancreatic lesions. Discharge Plan Discharge Disposition: [facility] Date of Admission: 11/11/23 14:33 Attending Provider on Discharge: Isaiah Vargas Consulting Providers: Rand Sharma Primary Care Provider: Angela Mott Condition: Improved Anticipated Discharge Date/Time: 11/18/23 10:04 Discharge Medications: New oxycodone 5 mg capsule 5 mg PO Q8H PRN (Reason: pain) Qty: 14 0RF Xarelto 10 mg Tablet 10 mg PO DAILY Qty: 30 0RF Continued ibandronate 150 mg tablet 150 mg PO .Every 30 Days lisinopril 40 mg tablet 40 mg PO DAILY omeprazole 20 mg capsule,delayed release(DR/EC) 20 mg PO DAILY ferrous sulfate 325 mg (65 mg iron) tablet 65 mg PO DAILY amlodipine 10 mg tablet 10 mg PO DAILY metoprolol succinate 200 mg tablet extended release 24 hr 200 mg PO DAILY atorvastatin 10 mg tablet 10 mg PO HS cholecalciferol (vitamin D3) [Vitamin D3] 25 mcg (1,000 unit) tablet 25 mcg PO DAILY fexofenadine [Allergy Relief (fexofenadine)] 180 mg tablet 180 mg PO DAILY polyethylene glycol 3350 17 gram/dose powder 8.5 g PO DAILY ondansetron 4 mg tablet,disintegrating 4 mg PO Q8H PRN (Reason: nausea) Discontinued tramadol 50 mg tablet 50 mg PO BID PRN (Reason: pain) Discharge Orders: Discharge Order (Routine); Ordered 11/18/23 Ordered By: Adrian Paniagua Activity Level: No strenuous activity Discharge Diet: Regular Follow Up Appointments: Isaiah Vargas MD [Staff Physician] - (Post Hospital Follow up primary clinic 1 week) Forms: [facility] Info Instructions Admit to: SNF Discharge Potential: Good Length of Stay: <30 days Can use facility standing orders?: Yes Code Status: Full Code Rehab Potential: Good Therapy: Physical Therapy and Occupational Therapy Therapy Orders: Evaluate and Treat Orders are good >30 days: No Signature: Adrian Paniagua
--- NOTE | 2023-11-18 11:14 | PC.SOCIAL ---
Discharge planning- India Thompson (RN at [facility]) met with patient face to face at the hospital this morning. India informs that they can accept patient for admission for today. 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 Met with patient and provided update. Phone call to patient's daughter Carmita and provided update. Carmita will bring patient more clothes and meet her at the [facility] campus. Provided update to charge nurse and patient's assigned Nurse. Faxed discharge orders to [facility] at [phone]. Social Work will follow up as needed.
--- NOTE | 2023-11-18 14:32 | PC.NURSE ---
Discharge Note: The patient is alert and orientated and very pleasant......pain in abdomen is well controlled with PRN Tylenol. Abdominal lap sites/ incision (4 sites.... CDI with steri strips) 2 BM's today.. soft and loose. Tolerating a regular diet wiht no N/V. Daughter Carmita accompanied the patient to [facility]. [facility] bus picked the patient up this afternoon. All discharge paper work was provided. Marjan PELAEZ BSN
== END 2023-11-18 13:37 | DRG 330 ==
LOC: ED 13:18 → MEDSURG 14:19
PROVIDERS: Family Medicine; Surgery; Admitting Provider Family Medicine; Emergency Provider Student in an Organized Health Care Education/Training Program; PCP Family Medicine; Visit Provider Physician Assistant
PROC: 0DTF4ZZ Resection of Right Large Intestine, Percutaneous Endoscopic Approach (ICD-10-PCS; principal; 2023-11-12 08:30)
DX: C18.0 Malignant neoplasm of cecum (principal); C77.2 Secondary and unspecified malignant neoplasm of intra-abdominal lymph nodes; K56.699 Other intestinal obstruction unspecified as to partial versus complete obstruction; E87.1 Hypo-osmolality and hyponatremia; R10.31 Right lower quadrant pain; G89.18 Other acute postprocedural pain; E87.6 Hypokalemia; R10.9 Unspecified abdominal pain; I10 Essential (primary) hypertension; K21.9 Gastro-esophageal reflux disease without esophagitis; K86.9 Disease of pancreas, unspecified; E78.5 Hyperlipidemia, unspecified
CPT/HCPCS: 00790; 36415; 64488; 74177; 76942; 80048; 80053; 81001; 82378; 83690; 83735; 84134; 84443; 84484; 85025; 85027; 88309; 88341; 88342; 93005; 94761; 97116; 97161; 97165; 97530; 97535; 99100; 99283; 99285; A9270; J0330; J0665; J1100; J1335; J1630; J1650; J2270; J2405; J2704; J3010; J3475; J3490; J7120; Q9967

== ENCOUNTER 2024-02-25 13:27 | Outpatient (CLI) | payer MEDICARE, BC, SELFPAY ==
--- NOTE | 2024-02-25 14:00 | CRLHL7_ITS ---
For Patients: As a result of the Century Cures Act, medical imaging exams and procedure reports are released immediately into your electronic medical record. You may view this report before your referring provider. If you have questions, please contact your health care provider. INDICATION: Colon cancer, surveillance. COMPARISON: CT chest 12/21/2023, CT abdomen pelvis 11/04/2023 and 11/11/2023. MR abdomen 12/21/2023 TECHNIQUE: CT chest, abdomen, and pelvis with contrast. Multiplanar axial, coronal, and sagittal reformats are included. MIP images to improve detection of pulmonary nodules are included. Intravenous contrast: 75 mL Isovue 3 7. FINDINGS: CHEST Airway: Normal tracheobronchial tree. Lungs: Densely calcified granuloma left upper lobe. Few unchanged benign subpleural nodules in the right lung. No worrisome pulmonary nodules or mass. Linear atelectasis in the lingula and right middle lobe. No consolidations. Normal appearance of the pulmonary interstitium. Pleura: No pleural effusion. No pneumothorax. Lymph nodes: No thoracic adenopathy. Mediastinum: No pneumomediastinum. No mass. Heart and great vessels: No pericardial effusion. Normal cardiac chamber size. Scattered atherosclerotic plaques. No aortic aneurysm. Upper limits of normal size caliber main pulmonary artery. Chest wall: Normal. No masses. ABDOMEN AND PELVIS Liver: There is some very minimal adjacent inflammatory stranding in the perihepatic fat. Tiny liver cyst in segment VII on series 2, image 119. Small amount of subcapsular fluid along the posterior right lobe of the liver fluid measures about 3.5 x 4 x 1 cm. Gallbladder and bile ducts: Cholecystectomy. Intrahepatic biliary ductal dilatation is similar to prior. Mildly prominent extrahepatic bile duct with normal tapering down towards the ampulla probably reservoir effect after cholecystectomy. Pancreas: 2 centimeter posterior pancreatic head cyst. 1.5 centimeter more inferior pancreatic head cyst. No change in the appearance of the pancreas. No ductal dilatation or pancreatitis. Spleen: Normal. Adrenal glands: Normal. Kidneys: Normal renal size and position. Normal enhancement. Large right and small left renal cysts are similar to several previous exams. No calculi. No urinary tract dilation. Urinary bladder: Normal. Pelvis: No cyst or mass. Vessels: Atherosclerotic vascular calcifications. Mesenteric vessels are widely patent. Bowel: Duodenal diverticuli. No dilated or inflamed small bowel. Right hemicolectomy. There are some mild inflammatory stranding at the anastomosis. No abscess or fluid collection. Heavy diverticulosis without diverticulitis. [id number] stool burden. Lymph nodes: There are few prominent mesenteric lymph nodes. For example there is a right lower quadrant mesenteric node that measures 1.0 x 1.2 cm on series 2, image 71. Lymph nodes maintain homogeneous normal enhancement. Peritoneum: There is some mild peritoneal thickening along the right pericolic gutter. No ascites. No free air. Abdominal wall: Healing abdominal incisions. No hematoma or seroma. No bowel containing hernia. Diastasis recti. BONES: T12 compression fracture is similar to the most recent prior exam. There is some mild retropulsion of the posterior cortex centrally, not a new finding. No new or worsening fractures. No focal bone lesions. IMPRESSION: 1. Postsurgical appearance of right hemicolectomy with ileocolic anastomosis. There is a moderate amount of adjacent inflammatory stranding with some soft tissue thickening in the pericolic gutter. This could be postoperative in nature. Mesenteric metastasis are not entirely excluded. Correlate with time since surgery. There are also a few mildly prominent mesenteric lymph nodes which could be reactive. 2. Postsurgical subcapsular collection along the posterior inferior right lobe of the liver. Please note that all CT scans at this facility use dose modulation, iterative reconstruction, and/or weight-based dosing when appropriate to reduce radiation dose to as low as reasonably achievable. Dictated by Mell Gifford MD @ 02/28/2024 10:53:27 AM (Electronically Signed)
--- NOTE | 2024-02-25 14:30 | CRLHL7_ITS ---
For Patients: As a result of the Cures Act, medical imaging exams and procedure reports are released immediately into your electronic medical record. You may view this report before your referring provider. If you have questions, please contact your health care provider. Indication: Thoracic compression fracture. Technique: Multisequence multiplanar MRI of the thoracic spine without the use of intravenous contrast. Comparison: Correlated with CT chest dated 12/21/2023. Findings: Mild accentuation of the thoracic kyphosis. Depression of the T12 superior endplate with surrounding edema. At T11-T12, fracture fragment retroversion results in severe spinal canal stenosis and moderate-severe bilateral neural foraminal narrowing. Probable small lipid poor hemangioma in the right T11 vertebral body (series 4, image 5). The thoracic spinal cord is normal in signal intensity. Multilevel disc desiccation and height loss is most pronounced at T5-T6. A small right pleural fluid effusion is new since 12/21/2023. Impression: 1. Subacute T12 compression fracture with retroverted superior endplate fracture fragment. 2. At T11-12, resultant severe spinal canal stenosis and moderate-severe bilateral neural foraminal narrowing. 3. No convincing spinal cord signal abnormality. 4. Small right pleural effusion, new since 12/21/2023 Dictated by Hans Mercado MD @ 02/28/2024 12:54:27 PM (Electronically Signed)
--- NOTE | 2024-02-25 15:30 | CRLHL7_ITS ---
For Patients: As a result of the Century Cures Act, medical imaging exams and procedure reports are released immediately into your electronic medical record. You may view this report before your referring provider. If you have questions, please contact your health care provider. Indication: Compression fracture. Technique: Multiplanar, multisequence MRI of the lumbar spine was performed without intravenous contrast. Comparison: CT chest, abdomen and pelvis 11/11/2023. Findings: Lumbosacral transitional anatomy. Transitional segment is labeled as S1, with lumbarization. Rudimentary S1-2 disc space. Interval progression of a now moderate compression fracture of the L1 vertebral body, with approximately 40 % vertebral body height loss. Internal marrow edema. No additional fractures identified. The conus medullaris terminates at L2, normal. Cauda equina appears unremarkable. T12-L1: Retropulsion of L1 fracture elements compresses the lower thoracic cord. There may be subtle cord signal change. There is overall severe spinal canal narrowing. Dorsal epidural T2/stir hyperintensity may represent an epidural hematoma. L1-2: Disc bulge with facet arthropathy results in mild spinal canal narrowing. Mild neural foraminal narrowing. Moderate facet arthropathy. L2-3: Disc degeneration. Disc bulge coupled with facet arthropathy results in mild spinal canal narrowing. [id number] neural foraminal narrowing. L3-4: Disc degeneration. Disc bulge with facet arthropathy results in mild spinal canal narrowing. Moderate left and [id number] right neural foraminal narrowing secondary to disc bulge and facet arthropathy. L4-5: Disc degeneration. Grade 1 anterolisthesis. Uncovering the disc coupled with facet arthropathy results in moderate spinal canal narrowing. Moderate neural foraminal narrowing. Severe facet arthropathy. L5-S1: Disc degeneration. Disc bulge with ligamentum flavum thickening and facet arthropathy results in mild spinal canal narrowing. Moderate to severe right and moderate left neural foraminal stenosis. Severe facet arthropathy. Moderate sacroiliac joint osteoarthritis. Multiple renal cysts. Impression: 1. Lumbosacral transitional anatomy. Transitional segment is labeled as S1, with lumbarization. Rudimentary S1-2 disc space. Careful clinical correlation and radiographic localization is recommended prior to any planned surgical intervention. 2. Progression of now moderate subacute L1 compression deformity. 3. At T12-L1, retropulsion of L1 fracture elements combined with dorsal epidural lipomatosis results in severe spinal canal stenosis and compresses the lower thoracic cord. Possible cord signal abnormality suggestive of cord edema. 4. Moderate to severe spondylosis at the remaining lumbar levels. Dictated by Felice Lockhart MD @ 02/28/2024 3:15:32 PM (Electronically Signed)
== END 2024-02-25 13:28 | disposition home or self-care (01) ==
LOC: CT 13:28
PROVIDERS: PCP Family Medicine; Visit Provider Physician Assistant
DX: C18.9 Malignant neoplasm of colon, unspecified (principal); C77.2 Secondary and unspecified malignant neoplasm of intra-abdominal lymph nodes; R91.1 Solitary pulmonary nodule; M47.896 Other spondylosis, lumbar region; S22.000A Wedge compression fracture of unspecified thoracic vertebra, initial encounter for closed fracture; M48.04 Spinal stenosis, thoracic region; J90 Pleural effusion, not elsewhere classified; K86.9 Disease of pancreas, unspecified; Z91.89 Other specified personal risk factors, not elsewhere classified
CPT/HCPCS: 71260; 72146; 72148; 74177; Q9967

== ENCOUNTER 2024-03-02 11:50 | Outpatient (CLI) | payer MEDICARE, BC, SELFPAY ==
--- NOTE | 2024-03-02 12:00 | CRLHL7_ITS ---
For Patients: As a result of the Century Cures Act, medical imaging exams and procedure reports are released immediately into your electronic medical record. You may view this report before your referring provider. If you have questions, please contact your health care provider. INDICATION: L1 fracture TECHNIQUE: 3-view lumbar spine. COMPARISON: MRI 02/25/2024 FINDINGS: Transitional lumbosacral anatomy. Compression deformity of L1 noted with moderate loss of anterior vertebral body height. No significant change. Multilevel degenerative disc disease mid lumbar spine. Facet degeneration L5-S1. Grade 1 degenerative spondylolisthesis of L4 on L5. Vascular calcifications. IMPRESSION: Moderate compression of L1, not significantly changed. Dictated by Mukund Torres MD @ 03/08/2024 8:59:36 AM (Electronically Signed)
--- NOTE | 2024-03-02 12:15 | CRLHL7_ITS ---
For Patients: As a result of the Century Cures Act, medical imaging exams and procedure reports are released immediately into your electronic medical record. You may view this report before your referring provider. If you have questions, please contact your health care provider. INDICATION: Follow-up fracture TECHNIQUE: 2-view thoracic spine. COMPARISON: Thoracic spine MRI 02/25/2024 FINDINGS: Compression deformity at the thoracolumbar junction is similar without further loss of vertebral body height. The MRI report from 02/25/2024 states that this is an L1 fracture. The MRI thoracic spine report from 02/25/2024 states that this is a T12 fracture. IMPRESSION: Moderate compression fracture deformity at the thoracolumbar junction, there is some discussion about whether this is T12 or L1 based on transitional lumbosacral anatomy. Please see the MRI report for further discussion, particularly the MRI lumbar spine report. No further loss of vertebral body height. Dictated by Mukund Torres MD @ 03/08/2024 9:10:49 AM (Electronically Signed)
== END 2024-03-02 11:51 | disposition home or self-care (01) ==
LOC: RAD 11:51
PROVIDERS: PCP Family Medicine; Visit Provider Physician Assistant
DX: S22.000A Wedge compression fracture of unspecified thoracic vertebra, initial encounter for closed fracture (principal); M47.896 Other spondylosis, lumbar region; M48.04 Spinal stenosis, thoracic region; J90 Pleural effusion, not elsewhere classified
CPT/HCPCS: 72072; 72100; G0463

== ENCOUNTER 2024-03-26 11:34 | Inpatient (IN) | payer MEDICARE, BC, SELFPAY ==
[2024-03-26] VITALS (19 sets, daily range): BP systolic 135–167; BP diastolic 72–90; PULSE 63–74; RESP 16–20; TEMP 36.6–36.9; O2SAT 90–98; BMI 27.1; BMI 27.3
--- NOTE | 2024-03-26 11:49 | ED_ITS ---
HPI - General Adult General Date Seen: 03/26/24 Chief complaint: Flank Pain Stated complaint: Lower R flank/back pain Time Seen by Provider: 03/26/24 11:35 Source: patient Mode of arrival: ambulatory Limitations: no limitations History of Present Illness HPI narrative: Patient is an 88-year-old female with a recent hemicolectomy for colonic mass presenting to the emergency department for right flank pain. She states the flank pain started about a week ago and has been gradually moving down to her right groin. Pain has been intermittent in nature. States she is currently not in any pain. Describes as a sharp pain. She has never had pain like this before. Denies any history of kidney stones. Denies associated nausea, vomiting, diarrhea, constipation, dysuria. She does note she has some right groin pain that occurs when she does urinate. Denies chest pain, shortness of breath, headache, lightheadedness, dizziness, weakness, numbness, vision changes. Has not noticed any blood in her stool. States she had a bowel movement yesterday that was normal. Does states she has not had much of an appetite but that has been ongoing since our previous surgery but she states otherwise overall so she healed well from her surgery. Related Data Home Medications ?Medication ?Instructions ?Recorded ?Confirmed amlodipine 10 mg tablet 10 mg PO DAILY 03/03/22 03/13/24 atorvastatin 10 mg tablet 10 mg PO HS 03/03/22 03/13/24 cholecalciferol (vitamin D3) 25 25 mcg PO DAILY 03/03/22 03/13/24 mcg (1,000 unit) tablet (Vitamin D3) ferrous sulfate 325 mg (65 mg 65 mg PO DAILY 03/03/22 03/13/24 iron) tablet lisinopril 40 mg tablet 40 mg PO DAILY 03/03/22 03/13/24 metoprolol succinate 200 mg 200 mg PO DAILY 03/03/22 03/13/24 tablet,extended release 24 hr omeprazole 20 mg capsule,delayed 20 mg PO DAILY 03/03/22 03/13/24 release fexofenadine 180 mg tablet 180 mg PO DAILY 11/11/23 03/13/24 (Allergy Relief (fexofenadine)) polyethylene glycol 3350 17 8.5 g PO DAILY 11/11/23 03/13/24 gram/dose oral powder Previous Rx's ?Medication ?Instructions ?Recorded oxycodone 5 mg capsule 5 mg PO Q8H PRN pain #14 caps 11/16/23 rivaroxaban 10 mg tablet (Xarelto) 10 mg PO DAILY #30 tabs 11/16/23 ondansetron HCl 4 mg tablet 4 mg PO Q8H PRN nausea and 12/06/23 vomiting #60 tabs prochlorperazine maleate 5 mg 5 mg PO TID PRN nausea and 12/06/23 tablet (Compazine) vomiting #60 tabs Allergies Allergy/AdvReac Type Severity Reaction Status Date / Time ibuprofen AdvReac Gastrointestinal Verified 03/13/24 10:42 Upset Review of Systems Status of ROS: Reports: 10 or more systems reviewed and unremarkable except as noted in History and below [facility] Medical History GERD (gastroesophageal reflux disease) ?K21.9 - Gastro-esophageal reflux disease without esophagitis (ICD-10) Hyperlipidemia ?E78.5 - Hyperlipidemia, unspecified (ICD-10) Pancreatic lesion ?K86.9 - Disease of pancreas, unspecified (ICD-10) Colonic mass ?K63.89 - Other specified diseases of intestine (ICD-10) Ventricular premature beats ?I49.3 - Ventricular premature depolarization (ICD-10) Uncontrolled hypertension ?I10 - Essential (primary) hypertension (ICD-10) Hyponatremia ?E87.1 - Hypo-osmolality and hyponatremia (ICD-10) Compression fracture of L3 vertebra ?S32.030A - Wedge compression fracture of third lumbar vertebra, initial encounter for closed fracture (ICD-10) Surgical History S/P right hemicolectomy ?Z90.49 - Acquired absence of other specified parts of digestive tract (ICD- 10) S/P laparoscopic cholecystectomy ?Z90.49 - Acquired absence of other specified parts of digestive tract (ICD- 10) Status post arthroscopic partial medial meniscectomy (02/10/05) ?Z98.890 - Other specified postprocedural states (ICD-10) S/P trigger finger release (02/28/09) ?Z98.890 - Other specified postprocedural states (ICD-10) 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 Patient lives independently and does all of her housework at home by herself. nonsmoker (quit at age 29), nondrinker (save a glass of wine at [place]). 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 [employer]. What is your current living situation?: I presently have a place to live Problems where you live: no known problems Problems where you live details: No known problems In the past 12 months, utilities in danger of being shut off: no In past 12 months, lack of transportation kept you from medical appts, meetings, work, or getting things needed for daily living: no In the past 12 mos, have been you worried that your food would run out before you had money to buy more?: never true In the past 12 mos, the food you bought just didn't last and you didn't have money to buy more?: never true Highest level of school completed/degree received: high school graduate Smoking Status: Former smoker What tobacco products do you use: cigarettes Smoking quit date/years: >15 years ago Do you use any of these nicotine containing products: None Second hand tobacco smoke exposure: No How often do you have a drink containing alcohol: never How often do you have six or more drinks on one occasion: Never AUDIT-C Alcohol total score: 0 Non-prescribed substance use: denies use Caffeine: Yes How often does anyone, including family, friends and others, physically hurt you : never How often does anyone, including family, friends and others, insult or talk down to you: never How often does anyone, including family, friends and others, threaten you with harm: never How often does anyone, including family, friends and others, scream or curse at you: never service: No Exam Narrative: Exam Narrative: Const: Well-nourished, Well-developed, in no distress Eyes: PERRL, no conjunctival injection, and symmetrical lids HENT: Atraumatic external nose and ears. Moist mucous membranes. Neck: Symmetric, trachea midline, No thyromegaly. CVS: RRR, No murmurs or gallops. Peripheral pulses 2+ and equal in all extremities RESP: Unlabored respiratory effort. Clear to auscultation bilaterally. GI: Nontender/Nondistended, No rebound or guarding. No CVA tenderness. Negative Goldstein sign MSK:Extremities w/o deformity, Normal Active ROM Skin: Warm, Dry. No rashes or lesions. Neuro: Normal Muscle tone, No focal neurological deficits. Psych: Awake, Alert, & Oriented x3. Appropriate mood and affect. Const: Vital Signs, click to edit/add: Vital Signs - 24 hr 03/26/24 11:41 Temperature 98.1 F Pulse Rate [Pulse Oximeter] 68 Respiratory Rate 20 Blood Pressure [Ri ght Upper Arm] 167/90 H Pulse Oximetry 98 Oxygen Delivery Me thod Room Air Course Vital Signs Vital signs: Initial Vital Signs Temperature 98.1 F 03/26/24 11:41 Temperature Source Temporal Artery Scan 03/26/24 11:41 Pulse Rate 68 03/26/24 11:41 Pulse Rhythm Regular 03/26/24 11:41 Respiratory Rate 20 03/26/24 11:41 Blood Pressure 167/90 H 03/26/24 11:41 Blood Pressure Mean 115 H 03/26/24 11:41 Blood Pressure Position Supine 03/26/24 11:41 Pulse Oximetry 98 03/26/24 11:41 Oxygen Delivery Method Room Air 03/26/24 11:41 Vital Signs Temperature 98.1 F 03/26/24 11:41 Pulse Rate 68 03/26/24 11:41 Respiratory Rate 20 03/26/24 11:41 Blood Pressure 167/90 H 03/26/24 11:41 Pulse Oximetry 98 03/26/24 11:41 Oxygen Delivery Method Room Air 03/26/24 11:41 Temperature 98.1 F 03/26/24 11:41 Pulse Rate 68 03/26/24 11:41 Respiratory Rate 20 03/26/24 11:41 Blood Pressure 167/90 H 03/26/24 11:41 Pulse Oximetry 98 03/26/24 11:41 Oxygen Delivery Method Room Air 03/26/24 11:41 Medical Decision Making MDM Narrative Medical decision making narrative: Patient is an 88-year-old female presenting for right flank pain radiating down to right groin. Differential at this time includes kidney stone, SBO, appendici tis, gallbladder disease. AAA rupture seems unlikely considering her vital signs otherwise stable and she appears to be doing well. I will do CT scan though to better evaluate everything. Will also order a CBC, CMP, lipase, urinalysis. She is not requesting any pain medication at this time. Could also be an uncommon presentation for coronary artery disease and also order an EKG and troponin also. Lab work returned showing a sodium of 123. Rest of her lab work shows no concerning abnormalities. No signs of UTI. Troponin within normal limits an EKG shows no concerning findings. Patient was given 500 mL of normal saline. CT scan returned showing a lesion and the liver along with diffuse metastatic disease within the abdomen. While this could be causing her flank pain I cannot say for certain. No signs of a kidney stone. Patient will be admitted to the hospitalist service. She is agreeable to this plan Lab Data Labs: Lab Results 03/26/24 03/26/24 03/26/24 Range/Units 11:57 12:10 12:55 WBC 7.38 (4.50-11.00) K/uL RBC 3.95 L (4.00-5.20) m/uL Hgb 11.6 L (12.0-16.0) gm/dL Hct 35.1 (33.0-51.0) % MCV 89 (80-100) fL MCH 29 (26-34) pg MCHC 33 (32-36) gm/dL RDW Coeff of [place] 14.2 (11.5-15.5) % Plt Count 440 (140-440) K/uL Neut % (Auto) 70.8 (42.0-72.0) % Lymph % (Auto) 9.3 L (20-44) % [place] % (Auto) 8.4 (0.0-11.0) % Eos % (Auto) 10.3 H (0.0-7.0) % Baso % (Auto) 1.1 (0.0-3.0) % Neut # (Auto) 5.22 (1.7-7.0) K/uL Lymph # (Auto) 0.70 L (0.90-2.90) K/uL [place] # (Auto) 0.60 (0.00-0.90) K/UL Eos # (Auto) 0.80 H (0.00-0.50) K/uL Baso # (Auto) 0.08 (0.00-0.30) K/uL Abs Immat Gran (auto) 0.01 (0.00-0.30) K/uL Imm/Tot Granulo (auto) 0.1 % Sodium 123 L* (135-149) mmol/L Potassium 4.0 (3.6-5.1) mmol/L Chloride 86 L (96-114) mmol/L Carbon Dioxide 29 (20-32) mmol/L Anion Gap 8 (7-15) mEq/L BUN 11 (7-30) mg/dL Creatinine 0.7 (0.5-1.5) mg/dL Estimated Creat Clear 34.23 Estimated GFR 84 ml/min Glucose 97 (60-115) mg/dL Calcium 9.4 (8.4-10.6) mg/dL Magnesium 1.8 (1.5-2.6) mg/dL Total Bilirubin 0.5 (0.1-1.5) mg/dL AST 36 H (12-35) U/L ALT 23 (4-35) U/L Alkaline Phosphatase 96 (40-150) U/L Total Protein 7.1 (6.0-8.3) g/dL Albumin 3.9 (3.3-5.0) g/dL Lipase 89 (23-300) U/L Urine Color Yellow (Yellow) Urine Appearance Clear (Clear) Urine pH 7.0 (5.0-8.5) Ur Specific [place] 1.010 (1.000-1.030) Urine Protein Negative (Negative) Urine Glucose (UA) Negative (Negative) Urine Ketones Negative (Negative) Urine Blood Negative (Negative) Urine Nitrite Negative (Negative) Urine Bilirubin Negative (Negative) Urine Urobilinogen 0.2 (0.2-1.0) Ur Leukocyte Esterase Negative (Negative) Urine RBC 0-2 (0-2) Urine WBC 0-2 (0-5) Ur Squamous Epith Cells None (None-Few) Urine Bacteria None (None) SARS-CoV-2 (PCR) Negative SARS-CoV-2 (Negative) Influenza Type A (PCR) Negative PCR FLU A (Negative) Influenza Type B (PCR) Negative PCR FLU B (Negative) POC Creatinine 0.7 (0.6-1.3) mg/dl Imaging Data CT scan abdomen pelvis: Attestation: I have reviewed the pertinent imaging results. Radiologist's impression: New hypodense lesions in segment 7 of the liver favor metastatic lesions, though abscesses are on the differential. Increased metastatic disease burden throughout the abdomen and pelvis with increased peritoneal nodularity, lymphadenopathy and conspicuity of region of recurrence along the anastomosis. Trace ascites and small right pleural effusion. Please note that all CT scans at this facility use dose modulation, iterative reconstruction, and/or weight-based dosing when appropriate to reduce radiation dose to as low as reasonably achievable. Dictated by Hedy Faith MD @ 03/26/2024 1:28:17 PM ECG Data Attestation: I personally reviewed and interpreted this ECG as follows: Prior ECG tracings: available for review Interpretation: Normal sinus rhythm rate 69 beats per minute, leftward axis, normal intervals, no ST or T-wave abnormalities. Appears similar previous EKG on file Discharge Plan Discharge Clinical Impression: Hyponatremia Patient Disposition: Admitted As Observation Condition: Stable Prescriptions: No Action lisinopril 40 mg tablet 40 mg PO DAILY omeprazole 20 mg capsule,delayed release(DR/EC) 20 mg PO DAILY ferrous sulfate 325 mg (65 mg iron) tablet 65 mg PO DAILY amlodipine 10 mg tablet 10 mg PO DAILY metoprolol succinate 200 mg tablet extended release 24 hr 200 mg PO DAILY atorvastatin 10 mg tablet 10 mg PO HS cholecalciferol (vitamin D3) [Vitamin D3] 25 mcg (1,000 unit) tablet 25 mcg PO DAILY prochlorperazine maleate [Compazine] 5 mg tablet 5 mg PO TID PRN (Reason: nausea and vomiting) Qty: 60 0RF ondansetron HCl 4 mg tablet 4 mg PO Q8H PRN (Reason: nausea and vomiting) Qty: 60 0RF fexofenadine [Allergy Relief (fexofenadine)] 180 mg tablet 180 mg PO DAILY polyethylene glycol 3350 17 gram/dose powder 8.5 g PO DAILY oxycodone 5 mg capsule 5 mg PO Q8H PRN (Reason: pain) Qty: 14 0RF Xarelto 10 mg Tablet 10 mg PO DAILY Qty: 30 0RF Follow Up/Referrals: Angela Mott DO [Primary Care Provider] -
--- NOTE | 2024-03-26 11:55 | CRLHL7_ITS ---
For Patients: As a result of the Century Cures Act, medical imaging exams and procedure reports are released immediately into your electronic medical record. You may view this report before your referring provider. If you have questions, please contact your health care provider. INDICATION: Right flank pain radiating down to groin TECHNIQUE: CT abdomen and pelvis acquired with 78 cc Isovue 370 IV contrast. COMPARISON: CT chest abdomen pelvis 02/25/2024, 06/25/2021. FINDINGS: Lower chest: Small right pleural effusion, new compared to prior with adjacent atelectasis. Liver: New segment 7 hypodense lesions with the larger lesion measuring 3.6 x 3.4 centimeters (2/42) and a more superior lesion measuring 1.9 x 1.2 centimeters (2/36). Increased subcapsular fluid along segments 7 and 8. Gallbladder and bile ducts: Gallbladder is absent. Mild prominence of the common bile duct and intrahepatic biliary ducts is similar to prior, unlikely related to reservoir effect. Pancreas: Cystic lesion at the uncinate process measuring 2.1 x 1.8 centimeters, similar to prior, but more remotely measuring 1.6 x 1.6 centimeters on 06/25/2021. Spleen: Unremarkable. Adrenal glands: Unremarkable. Kidneys: Bilateral renal cysts. No hydronephrosis. GI tract: Duodenal diverticulum. Post right hemicolectomy with similar thickening at the anastomosis (). Diverticulosis without diverticulitis. Normal appendix. Vasculature: Abdominal aorta is normal in caliber. Mesenteric arteries are patent. Lymph nodes: Increased retroperitoneal lymphadenopathy and mesenteric lymphadenopathy: -aortocaval lymph node measuring 1.8 x 1.6 centimeters (), previously 1.3 x 1.1 centimeters -right lower quadrant mesenteric lymph node measuring 2.3 x 1.3 centimeters (), previously 1.1 x 0.6 centimeters Peritoneum/Abdominal Wall: Increased peritoneal nodularity throughout the abdomen and pelvis, for example: -markedly increased nodularity throughout the right lower quadrant in the region of hemicolectomy anastomosis, which is difficult to measure, but the region of nodularity measures approximately 8.9 x 7.5 centimeters (80) -nodule in the deep pelvis measuring 1.1 x 0.9 centimeters (/106), and not well seen on the prior exam -increased nodularity along the right hemidiaphragm () Trace ascites. Pelvis: Uterus is unremarkable. Bladder is unremarkable. Bones: Redemonstration of L1 compression deformity with mild retropulsion. Partial lumbarization of S1. No acute or suspicious osseous lesions. IMPRESSION: New hypodense lesions in segment 7 of the liver favor metastatic lesions, though abscesses are on the differential. Increased metastatic disease burden throughout the abdomen and pelvis with increased peritoneal nodularity, lymphadenopathy and conspicuity of region of recurrence along the anastomosis. Trace ascites and small right pleural effusion. Please note that all CT scans at this facility use dose modulation, iterative reconstruction, and/or weight-based dosing when appropriate to reduce radiation dose to as low as reasonably achievable. Dictated by Hedy Faith MD @ 03/26/2024 1:28:17 PM (Electronically Signed)
[2024-03-26 12:22] LABS: Basophils Absolute Auto 0.08 K/uL (0.00-0.30); Basophils Percent Auto 1.1 % (0.0-3.0); Eosinophils Percent Auto 10.3 % (0.0-7.0); Hematocrit 35.1 % (33.0-51.0); Hemoglobin* 11.6 gm/dL (12.0-16.0); Immature Granulocytes Abs Auto 0.01 K/uL (0.00-0.30); Immature Granulocytes Pct Auto 0.1 %; Lymphocytes Percent Auto 9.3 % (20-44); Mean Corpuscular HGB Conc 33 gm/dL (32-36); Mean Corpuscular Hemoglobin 29 pg (26-34); Mean Corpuscular Volume 89 fL (80-100); Monocytes Percent Auto 8.4 % (0.0-11.0); Neutrophils Absolute Auto 5.22 K/uL (1.7-7.0); Neutrophils Percent Auto 70.8 % (42.0-72.0); Platelet Count* 440 K/uL (140-440); RDW Coefficient of Variation % 14.2 % (11.5-15.5); Red Blood Count 3.95 m/uL (4.00-5.20); White Blood Count* 7.38 K/uL (4.50-11.00)
[2024-03-26 12:30] LABS: Slide Review Reflex No
[2024-03-26 12:36] LABS: Albumin* 3.9 g/dL (3.3-5.0)
[2024-03-26 12:37] LABS: Chloride* 86 mmol/L (96-114)
[2024-03-26 12:39] LABS: Anion Gap 8 mEq/L (7-15); Bilirubin Total* 0.5 mg/dL (0.1-1.5); Carbon Dioxide* 29 mmol/L (20-32); Creatinine* 0.7 mg/dL (0.5-1.5); Est. Creatinine Clearance* 34.23; Estimated Glomerular Filt Rate 84 ml/min; Magnesium* 1.8 mg/dL (1.5-2.6)
[2024-03-26 12:40] LABS: Alanine Aminotransferase* 23 U/L (4-35); Alkaline Phosphatase* 96 U/L (40-150); Aspartate Amino Transferase* 36 U/L (12-35); Blood Urea Nitrogen* 11 mg/dL (7-30); Calcium* 9.4 mg/dL (8.4-10.6); Glucose* 97 mg/dL (60-115); Lipase* 89 U/L (23-300); Total Protein* 7.1 g/dL (6.0-8.3)
[2024-03-26 12:43] LABS: Sodium* 123 mmol/L (135-149)
[2024-03-26 12:47] LABS: Creatinine, Point-of-Care* 0.7 mg/dl (0.6-1.3)
[2024-03-26 12:59] LABS: Appearance Urine Clear (Clear); Bilirubin Urine Negative (Negative); Blood Urine Negative (Negative); Color Urine Yellow (Yellow); Glucose Urine Negative (Negative); Ketones Urine Negative (Negative); Leukocyte Esterase Urine Negative (Negative); Nitrite Urine Negative (Negative); Protein Urine Negative (Negative); Urobilinogen Urine 0.2 (0.2-1.0)
[2024-03-26] MEDS: 0.9 % SODIUM CHLORIDE 500 ML 500 ML IV (13:00)
[2024-03-26 13:03] LABS: PCR FLU A Negative PCR FLU A (Negative); PCR FLU B Negative PCR FLU B (Negative); SARS PCR* Negative SARS-CoV-2 (Negative)
[2024-03-26 13:13] LABS: RBC Urine 0-2 (0-2); WBC Urine 0-2 (0-5)
--- NOTE | 2024-03-26 15:49 | PM.IMHP1 ---
Hospitalist- H&P: HPI History of Present Illness Date Seen: 03/26/24 Chief complaint: Lower R flank/back pain Narrative: Digna Beck is a 88 year old female w/ past medical history of hypertension, hyperlipidemia, GERD and history of colon cancer status post amarilys colectomy on November who presents to the ED today d/t intermittent lower right flank radiating to her lower spine. Currently patient scores hair pain at 5/10. Patient's history includes colon adenocarcinoma, moderate to poorly differentiated, extension into pericolonic adipose tissue, extensive angiolymphatic invasion including lymphangitic involvement of appendix and mesenteric soft tissue margin, metastatic involvement of 18 on 18 lymph nodes with marked extranodal tumor extension. she lives by herself and does her own laundry, groceries, cooking. At the ED, patient was hemodynamically stable. Labs are significant for sodium at 123. Urine analysis within normal. CT scan abdomen pelvis showed: New hypodense lesions in segment 7 of the liver favor metastatic lesions, though abscesses are on the differential. Increased metastatic disease burden throughout the abdomen and pelvis. Patient admitted for observation for hyponatremia. Review of Systems Status of ROS: Reports: 6 or more systems reviewed and unremarkable except as noted in History and below [facility] Medical History GERD (gastroesophageal reflux disease) ?K21.9 - Gastro-esophageal reflux disease without esophagitis (ICD-10) Hyperlipidemia ?E78.5 - Hyperlipidemia, unspecified (ICD-10) Pancreatic lesion ?K86.9 - Disease of pancreas, unspecified (ICD-10) Colonic mass ?K63.89 - Other specified diseases of intestine (ICD-10) Ventricular premature beats ?I49.3 - Ventricular premature depolarization (ICD-10) Uncontrolled hypertension ?I10 - Essential (primary) hypertension (ICD-10) Hyponatremia ?E87.1 - Hypo-osmolality and hyponatremia (ICD-10) Compression fracture of L3 vertebra ?S32.030A - Wedge compression fracture of third lumbar vertebra, initial encounter for closed fracture (ICD-10) Surgical History S/P right hemicolectomy ?Z90.49 - Acquired absence of other specified parts of digestive tract (ICD-10) S/P laparoscopic cholecystectomy ?Z90.49 - Acquired absence of other specified parts of digestive tract (ICD-10) Status post arthroscopic partial medial meniscectomy (02/10/05) ?Z98.890 - Other specified postprocedural states (ICD-10) S/P trigger finger release (02/28/09) ?Z98.890 - Other specified postprocedural states (ICD-10) 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 Patient lives independently and does all of her housework at home by herself. nonsmoker (quit at age 29), nondrinker (save a glass of wine at [place]). 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 What is your current living situation?: I presently have a place to live Problems where you live: no known problems Problems where you live details: N/A In the past 12 months, utilities in danger of being shut off: no In past 12 months, lack of transportation kept you from medical appts, meetings, work, or getting things needed for daily living: no In the past 12 mos, have been you worried that your food would run out before you had money to buy more?: never true In the past 12 mos, the food you bought just didn't last and you didn't have money to buy more?: never true Highest level of school completed/degree received: high school graduate Smoking Status: Former smoker What tobacco products do you use: cigarettes Smoking quit date/years: >15 years ago Do you use any of these nicotine containing products: None Second hand tobacco smoke exposure: No How often do you have a drink containing alcohol: never How often do you have six or more drinks on one occasion: Never AUDIT-C Alcohol total score: 0 Non-prescribed substance use: denies use Caffeine: No How often does anyone, including family, friends and others, physically hurt you: never How often does anyone, including family, friends and others, insult or talk down to you: never How often does anyone, including family, friends and others, threaten you with harm: never How often does anyone, including family, friends and others, scream or curse at you: never service: No Meds Home Medications and Allergies Home Medications ?Medication ?Instructions ?Recorded ?Confirmed ?Type amlodipine 10 mg tablet 10 mg PO DAILY 03/03/22 03/26/24 History atorvastatin 10 mg tablet 10 mg PO HS 03/03/22 03/26/24 History cholecalciferol (vitamin D3) 25 25 mcg PO DAILY 03/03/22 03/26/24 History mcg (1,000 unit) tablet (Vitamin D3) ferrous sulfate 325 mg (65 mg 65 mg PO DAILY 03/03/22 03/13/24 History iron) tablet lisinopril 40 mg tablet 40 mg PO DAILY 03/03/22 03/26/24 History metoprolol succinate 200 mg 200 mg PO DAILY 03/03/22 03/26/24 History tablet,extended release 24 hr omeprazole 20 mg capsule,delayed 20 mg PO DAILY 03/03/22 03/26/24 History release fexofenadine 180 mg tablet 180 mg PO DAILY 11/11/23 03/26/24 History (Allergy Relief (fexofenadine)) Allergies Allergy/AdvReac Type Severity Reaction Status Date / Time ibuprofen AdvReac Gastrointestinal Verified 03/13/24 10:42 Upset Exam Narrative: Exam Narrative: Physical exam GENERAL: Comfortable, no acute distress. HEAD AND NECK: Atraumatic, normocephalic CARDIOVASCULAR: RRR. Normal S1, S2. No murmurs. RESPIRATORY: Clear to auscultation B/L. Good air entry B/L. No wheezes or rhonchi. GASTROINTESTINAL: Not distended, not tender to palpation. NEUROLOGY: Alert, awake, oriented X 3. Normal speech. PSYCH: Normal mood, normal affect. Const: Vital Signs, click to edit/add: Vital Signs - 24 hr 03/26/24 11:41 03/26/24 11:53 03/26/24 12:00 Temperature 98.1 F Pulse Rate 63 65 Pulse Rate [Left P ulse Oximeter] Pulse Rate [Pulse Oximeter] 68 Respiratory Rate 20 Blood Pressure Blood Pressure [Le ft Arm] Blood Pressure [Ri ght Upper Arm] 167/90 H Pulse Oximetry 98 96 96 Oxygen Delivery Me thod Room Air 03/26/24 12:02 03/26/24 12:26 03/26/24 12:30 Temperature Pulse Rate 65 74 73 Pulse Rate [Left P ulse Oximeter] Pulse Rate [Pulse Oximeter] Respiratory Rate 16 Blood Pressure 135/73 Blood Pressure [Le ft Arm] Blood Pressure [Ri ght Upper Arm] Pulse Oximetry 94 92 Oxygen Delivery Me thod Room Air 03/26/24 12:32 03/26/24 12:45 03/26/24 13:00 Temperature Pulse Rate 69 67 66 Pulse Rate [Left P ulse Oximeter] Pulse Rate [Pulse Oximeter] Respiratory Rate Blood Pressure 154/77 H Blood Pressure [Le ft Arm] Blood Pressure [Ri ght Upper Arm] Pulse Oximetry 94 93 90 Oxygen Delivery Me thod 03/26/24 13:02 03/26/24 13:15 03/26/24 13:30 Temperature Pulse Rate 65 65 63 Pulse Rate [Left P ulse Oximeter] Pulse Rate [Pulse Oximeter] Respiratory Rate 16 Blood Pressure 148/72 H Blood Pressure [Le ft Arm] Blood Pressure [Ri ght Upper Arm] Pulse Oximetry 92 93 93 Oxygen Delivery Me thod Room Air 03/26/24 13:32 03/26/24 13:45 03/26/24 14:00 Temperature Pulse Rate 64 65 65 Pulse Rate [Left P ulse Oximeter] Pulse Rate [Pulse Oximeter] Respiratory Rate Blood Pressure 141/76 H Blood Pressure [Le ft Arm] Blood Pressure [Ri ght Upper Arm] Pulse Oximetry 91 96 98 Oxygen Delivery Me thod 03/26/24 14:02 03/26/24 14:28 Temperature 97.9 F Pulse Rate 65 Pulse Rate [Left P ulse Oximeter] 70 Pulse Rate [Pulse Oximeter] Respiratory Rate 16 18 Blood Pressure 144/75 H Blood Pressure [Le ft Arm] 162/79 H Blood Pressure [Ri ght Upper Arm] Pulse Oximetry 95 93 Oxygen Delivery Me thod Room Air Room Air Hospitalist - H&P: Result Labs Labs: Short CBC 03/26/24 Range/Units 12:10 WBC 7.38 (4.50-11.00) K/uL Hgb 11.6 L (12.0-16.0) gm/dL Hct 35.1 (33.0-51.0) % Plt Count 440 (140-440) K/uL BMP 03/26/24 12:10 Sodium 123 L* Potassium 4.0 Chloride 86 L Carbon Dioxide 29 BUN 11 Creatinine 0.7 Glucose 97 Calcium 9.4 Liver Function 03/26/24 Range/Units 12:10 Total Bilirubin 0.5 (0.1-1.5) mg/dL AST 36 H (12-35) U/L ALT 23 (4-35) U/L Alkaline Phosphatase 96 (40-150) U/L Albumin 3.9 (3.3-5.0) g/dL Urine 03/26/24 Range/Units 12:55 Urine Color Yellow (Yellow) Urine Appearance Clear (Clear) Urine pH 7.0 (5.0-8.5) Ur Specific [place] 1.010 (1.000-1.030) Urine Protein Negative (Negative) Urine Glucose (UA) Negative (Negative) ECG Attestation: I personally reviewed and interpreted this ECG as follows: ECG interpretation time: 15:53 Interpretation: Normal sinus rhythm, normal QTC, T-wave-ST interval insignificant changes. Imaging CT Chest/Ab/Pelvis: Radiologist's impression: TECHNIQUE: CT abdomen and pelvis acquired with 78 cc Isovue 370 IV contrast. COMPARISON: CT chest abdomen pelvis 02/25/2024, 06/25/2021. FINDINGS: Lower chest: Small right pleural effusion, new compared to prior with adjacent atelectasis. Liver: New segment 7 hypodense lesions with the larger lesion measuring 3.6 x 3.4 centimeters (2/42) and a more superior lesion measuring 1.9 x 1.2 centimeters (2/36). Increased subcapsular fluid along segments 7 and 8. Gallbladder and bile ducts: Gallbladder is absent. Mild prominence of the common bile duct and intrahepatic biliary ducts is similar to prior, unlikely related to reservoir effect. Pancreas: Cystic lesion at the uncinate process measuring 2.1 x 1.8 centimeters, similar to prior, but more remotely measuring 1.6 x 1.6 centimeters on 06/25/2021. Spleen: Unremarkable. Adrenal glands: Unremarkable. Kidneys: Bilateral renal cysts. No hydronephrosis. GI tract: Duodenal diverticulum. Post right hemicolectomy with similar thickening at the anastomosis (). Diverticulosis without diverticulitis. Normal appendix. Vasculature: Abdominal aorta is normal in caliber. Mesenteric arteries are patent. Lymph nodes: Increased retroperitoneal lymphadenopathy and mesenteric lymphadenopathy: -aortocaval lymph node measuring 1.8 x 1.6 centimeters (2/67), previously 1.3 x 1.1 centimeters -right lower quadrant mesenteric lymph node measuring 2.3 x 1.3 centimeters (2/), previously 1.1 x 0.6 centimeters Peritoneum/Abdominal Wall: Increased peritoneal nodularity throughout the abdomen and pelvis, for example: -markedly increased nodularity throughout the right lower quadrant in the region of hemicolectomy anastomosis, which is difficult to measure, but the region of nodularity measures approximately 8.9 x 7.5 centimeters (80) -nodule in the deep pelvis measuring 1.1 x 0.9 centimeters (2/106), and not well seen on the prior exam -increased nodularity along the right hemidiaphragm () Trace ascites. Pelvis: Uterus is unremarkable. Bladder is unremarkable. Bones: Redemonstration of L1 compression deformity with mild retropulsion. Partial lumbarization of S1. No acute or suspicious osseous lesions. IMPRESSION: New hypodense lesions in segment 7 of the liver favor metastatic lesions, though abscesses are on the differential. Increased metastatic disease burden throughout the abdomen and pelvis with increased peritoneal nodularity, lymphadenopathy and conspicuity of region of recurrence along the anastomosis. Trace ascites and small right pleural effusion. Please note that all CT scans at this facility use dose modulation, iterative reconstruction, and/or weight-based dosing when appropriate to reduce radiation dose to as low as reasonably achievable. Dictated by Hedy Faith MD @ 03/26/2024 1:28:17 PM Assessment and Plan Assessment and plan (1) Hyponatremia: Problem comment: -hyponatremia, sodium at admission was 123, baseline is around 133 to 138 -Labs also showed low chloride at 86, patient was given 500 mL of normal saline, she is going to need re-testing after the IV fluid bolus as this might help with the hypochloremic hyponatremia. -asymptomatic. Status: Acute (2) Right upper quadrant abdominal pain: Problem comment: -likely secondary to the new suspected liver Mets. Less likely abscess as patient is afebrile with normal WBCs. -Urine analysis within normal. -CT scan abdomen pelvis showed: New hypodense lesions in segment 7 of the liver favor metastatic lesions, though abscesses are on the differential. Increased metastatic disease burden throughout the abdomen and pelvis. -pain management with Tylenol works. Per The patient. Low threshold it was related pain management. Status: Acute (3) Metastasis to liver: Problem comment: - CT scan abdomen pelvis showed: New hypodense lesions in segment 7 of the liver favor metastatic lesions, though abscesses are on the differential. Increased metastatic disease burden throughout the abdomen and pelvis. Status: Suspected (4) 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 regional lymph nodes (N2b): Problem comment: -Colon cancer: T3 N2b M0 stage IIIC, poorly differentiated, DNA mismatch repair enzyme intact, status post right hemicolectomy and lymph node dissection on November -12/22/2023: c1d1 xeloda 1000mg BID one week on 1 week off Status: Acute (5) Compression fracture of body of thoracic vertebra: Problem comment: -02/25/2024, 03/02/2024 spinal MRIs concern for compression fracture. Status: Acute (6) Pulmonary nodule less than 1 cm in diameter with moderate to high risk for malignant neoplasm: Problem comment: -follow-up as an outpatient Status: Acute (7) Uncontrolled hypertension: Problem comment: -resume lisinopril, amlodipine, metoprolol . Status: Chronic (8) Hyperlipidemia: Problem comment: -resume statin Status: Chronic (9) GERD (gastroesophageal reflux disease): Problem comment: Resume PPI Status: Chronic (10) Transaminitis: Problem comment: -mild transaminitis AST elevated at 36, with normal ALT and normal bilirubin. -might be related to the suspected liver Mets -follow-up Status: Acute Plan As above Total Time Spent Total Time Spent: Time spent: Today I spent 75 minutes seeing the patient, discussing the patient with ER staff, reviewing [facility]panse and EPIC notes/diagnostics, discussing the care plan with our care time that includes social work, PT/OT, pharmacy, RT, and documenting my impressions and plan in the medical record.
[2024-03-26 16:30] LABS: Sodium* 124 mmol/L (135-149)
[2024-03-26] MEDS: ENOXAPARIN 40 MG/0.4 ML INJ SUBCUT (21:15)
[2024-03-26] MEDS: ATORVASTATIN 10 MG TABLET PO (21:15)
[2024-03-26] MEDS: ACETAMINOPHEN 325 MG TABLET 650 MG PO (21:15)
[2024-03-26] MEDS: SODIUM CHLORIDE 0.9 % (FLUSH) 10 ML SYRINGE 5 ML IVF (21:16)
[2024-03-27] VITALS (8 sets, daily range): BP systolic 122–151; BP diastolic 66–79; PULSE 66–75; RESP 16–22; TEMP 36–36.8; O2SAT 92–96; BMI 26.9
--- NOTE | 2024-03-27 05:57 | PC.NURSE ---
Shift note: C/o pain in right lower abdomen and lower back, RN treated per eMAR with relief. Pt ambulates independently in the room, no other complains during this this.
[2024-03-27 06:40] LABS: Chloride* 91 mmol/L (96-114); Potassium* 3.8 mmol/L (3.6-5.1); Sodium* 126 mmol/L (135-149)
[2024-03-27 06:43] LABS: Anion Gap 6 mEq/L (7-15); Blood Urea Nitrogen* 9 mg/dL (7-30); Carbon Dioxide* 29 mmol/L (20-32); Creatinine* 0.7 mg/dL (0.5-1.5); Est. Creatinine Clearance* 34.23; Estimated Glomerular Filt Rate 84 ml/min; Glucose* 93 mg/dL (60-115)
[2024-03-27 06:44] LABS: Calcium* 8.9 mg/dL (8.4-10.6)
[2024-03-27] MEDS: ACETAMINOPHEN 325 MG TABLET 650 MG PO (08:17)
--- NOTE | 2024-03-27 08:25 | PM.IMPN1 ---
Progress Note: A&P Assessment and plan (1) Hyponatremia: Problem details: - hyponatremia, sodium at admission was 123, baseline is around 133 to 138 - asymptomatic - also hyperchloremic at 86 - 500mL of NS in ED, has had appropriate improvement of Na, continue following closely Status: Acute (2) Right upper quadrant abdominal pain: Problem details: - likely secondary to the new suspected liver Metastases - CT notes that ddx includes liver abscess; less likely given clinical picture (afebrile status, normal WBC) - Tylenol + low dose Oxycodone for pain management Status: Acute (3) 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 regional lymph nodes (N2b): Problem details: - Colon cancer: T3 N2b M0 stage IIIC, poorly differentiated, DNA mismatch repair enzyme intact, s/p right hemicolectomy and lymph node dissection on 11/12/23 - 12/22/2023: c1d1 Xeloda 1000mg BID one week on 1 week off Status: Acute (4) Uncontrolled hypertension: Problem details: - BP age appropriate at this time on home doses of lisinopril, Metoprolol, and Amlodipine Status: Chronic (5) Hyperlipidemia: Problem details: - continue home dose of statin Status: Chronic (6) GERD (gastroesophageal reflux disease): Problem details: - continue PPI Status: Chronic (7) Transaminitis: Problem details: - mild transaminitis AST elevated at 36, with normal ALT and normal bilirubin. - likely related to metastatic colon cancer - outpatient f/u Status: Acute Plan - per above, likely home tomorrow - daughter updated at bedside, questions answered Subjective Date Seen: 03/27/24 Interval history: Sylvia was admitted to the hospital last night for new hyponatremia of unknown acuity. She presented to the hospital with RUQ pain, imaging in the ED revealed new hepatic metastases and increased intraabdominal metastatic disease burden. Na in ED 123, asymptomatic. Received 1L of NS in ER, sodium has been appropriately increasing since (126 this morning). Digna is feeling okay this morning. She has a little bit of discomfort in her legs and mild discomfort in her right upper quadrant; Tylenol typically relieves this pain. She understands that her ER imaging revealed metastatic disease and will follow-up with her PCP regarding further plan of care. Exam Narrative: Exam Narrative: GEN: Alert and oriented, nontoxic in appearance HEENT: EOMIs bilaterally, no scleral icterus CV: RRR, soft systolic murmur without concerning features R: LCTA bilaterally without concerning wheezing Ab: Soft and nondistended, mild discomfort on palpation of right upper quadrant without rebound or guarding Ext: wwp, no concerning edema Skin: No concerning skin lesions or rashes on exposed skin Neuro: Nonfocal Psych: Appropriate Const: Vital Signs, click to edit/add: Vital Signs - 24 hr 03/26/24 11:41 03/26/24 11:53 03/26/24 12:00 Temperature 98.1 F Pulse Rate 63 65 Pulse Rate [Left P ulse Oximeter] Pulse Rate [Pulse Oximeter] 68 Respiratory Rate 20 Blood Pressure Blood Pressure [Le ft Arm] Blood Pressure [Ri ght Upper Arm] 167/90 H Pulse Oximetry 98 96 96 Oxygen Delivery Me thod Room Air 03/26/24 12:02 03/26/24 12:26 03/26/24 12:30 Temperature Pulse Rate 65 74 73 Pulse Rate [Left P ulse Oximeter] Pulse Rate [Pulse Oximeter] Respiratory Rate 16 Blood Pressure 135/73 Blood Pressure [Le ft Arm] Blood Pressure [Ri ght Upper Arm] Pulse Oximetry 94 92 Oxygen Delivery Me thod Room Air 03/26/24 12:32 03/26/24 12:45 03/26/24 13:00 Temperature Pulse Rate 69 67 66 Pulse Rate [Left P ulse Oximeter] Pulse Rate [Pulse Oximeter] Respiratory Rate Blood Pressure 154/77 H Blood Pressure [Le ft Arm] Blood Pressure [Ri ght Upper Arm] Pulse Oximetry 94 93 90 Oxygen Delivery Me thod 03/26/24 13:02 03/26/24 13:15 03/26/24 13:30 Temperature Pulse Rate 65 65 63 Pulse Rate [Left P ulse Oximeter] Pulse Rate [Pulse Oximeter] Respiratory Rate 16 Blood Pressure 148/72 H Blood Pressure [Le ft Arm] Blood Pressure [Ri ght Upper Arm] Pulse Oximetry 92 93 93 Oxygen Delivery Me thod Room Air 03/26/24 13:32 03/26/24 13:45 03/26/24 14:00 Temperature Pulse Rate 64 65 65 Pulse Rate [Left P ulse Oximeter] Pulse Rate [Pulse Oximeter] Respiratory Rate Blood Pressure 141/76 H Blood Pressure [Le ft Arm] Blood Pressure [Ri ght Upper Arm] Pulse Oximetry 91 96 98 Oxygen Delivery Me thod 03/26/24 14:02 03/26/24 14:28 03/26/24 19:50 Temperature 97.9 F 98.4 F Pulse Rate 65 Pulse Rate [Left P ulse Oximeter] 70 67 Pulse Rate [Pulse Oximeter] Respiratory Rate 16 18 18 Blood Pressure 144/75 H Blood Pressure [Le ft Arm] 162/79 H 157/76 H Blood Pressure [Ri ght Upper Arm] Pulse Oximetry 95 93 93 Oxygen Delivery Me thod Room Air Room Air Room Air 03/26/24 23:00 03/27/24 00:00 03/27/24 03:00 Temperature Pulse Rate Pulse Rate [Left P ulse Oximeter] 67 73 70 Pulse Rate [Pulse Oximeter] Respiratory Rate 18 16 16 Blood Pressure Blood Pressure [Le ft Arm] 136/67 151/72 H Blood Pressure [Ri ght Upper Arm] Pulse Oximetry 95 93 Oxygen Delivery Me thod Room Air Room Air Labs Labs: Laboratory Results - last 24 hr 03/26/24 03/26/24 03/26/24 11:57 12:10 12:55 WBC 7.38 RBC 3.95 L Hgb 11.6 L Hct 35.1 MCV 89 MCH 29 MCHC 33 RDW Coeff of Gal[place] 14.2 Plt Count 440 Neut % (Auto) 70.8 Lymph % (Auto) 9.3 L Divide % (Auto) 8.4 Eos % (Auto) 10.3 H Baso % (Auto) 1.1 Neut # (Auto) 5.22 Lymph # (Auto) 0.70 L [place] # (Auto) 0.60 Eos # (Auto) 0.80 H Baso # (Auto) 0.08 Abs Immat Gran (auto) 0.01 Imm/Tot Granulo (auto) 0.1 Sodium 123 L* Potassium 4.0 Chloride 86 L Carbon Dioxide 29 Anion Gap 8 BUN 11 Creatinine 0.7 Estimated Creat Clear 34.23 Estimated GFR 84 Glucose 97 Calcium 9.4 Magnesium 1.8 Total Bilirubin 0.5 AST 36 H ALT 23 Alkaline Phosphatase 96 Total Protein 7.1 Albumin 3.9 Lipase 89 Urine Color Yellow Urine Appearance Clear Urine pH 7.0 Ur Specific [place] 1.010 Urine Protein Negative Urine Glucose (UA) Negative Urine Ketones Negative Urine Blood Negative Urine Nitrite Negative Urine Bilirubin Negative Urine Urobilinogen 0.2 Ur Leukocyte Esterase Negative Urine RBC 0-2 Urine WBC 0-2 Ur Squamous Epith Cells None Urine Bacteria None SARS-CoV-2 (PCR) Negative SARS-CoV-2 Influenza Type A (PCR) Negative PCR FLU A Influenza Type B (PCR) Negative PCR FLU B POC Creatinine 0.7 03/26/24 03/27/24 16:01 06:09 WBC RBC Hgb Hct MCV MCH MCHC RDW Coeff of [place] Plt Count Neut % (Auto) Lymph % (Auto) Divide % (Auto) Eos % (Auto) Baso % (Auto) Neut # (Auto) Lymph # (Auto) Divide # (Auto) Eos # (Auto) Baso # (Auto) Abs Immat Gran (auto) Imm/Tot Granulo (auto) Sodium 124 L* 126 L Potassium 3.8 Chloride 91 L Carbon Dioxide 29 Anion Gap 6 L BUN 9 Creatinine 0.7 Estimated Creat Clear 34.23 Estimated GFR 84 Glucose 93 Calcium 8.9 Magnesium Total Bilirubin AST ALT Alkaline Phosphatase Total Protein Albumin Lipase Urine Color Urine Appearance Urine pH Ur Specific [place] Urine Protein Urine Glucose (UA) Urine Ketones Urine Blood Urine Nitrite Urine Bilirubin Urine Urobilinogen Ur Leukocyte Esterase Urine RBC Urine WBC Ur Squamous Epith Cells Urine Bacteria SARS-CoV-2 (PCR) Influenza Type A (PCR) Influenza Type B (PCR) POC Creatinine
[2024-03-27] MEDS: SODIUM CHLORIDE 0.9 % (FLUSH) 10 ML SYRINGE 5 ML IVF ×2 (08:38→20:42)
[2024-03-27] MEDS: METOPROLOL SUCCINATE (XL) 100 MG TAB 200 MG PO (08:38)
[2024-03-27] MEDS: AMLODIPINE 10 MG TABLET PO (08:38)
[2024-03-27] MEDS: lisinopriL 20 MG TABLET 40 MG PO (08:38)
[2024-03-27 13:40] LABS: Sodium* 125 mmol/L (135-149)
--- NOTE | 2024-03-27 14:25 | PC.NURSE ---
End of Shift: Patient pleasant and cooperative. Patient vitally stable, lungs clear, BS WNL, IV SL and intact. Patient rates right abdominal pain at most 7/10, tylenol given once and pain reduced to 3/10. Patient independent in room. Patient tolerating regular diet, urinating, and had 1 BM.
[2024-03-27] MEDS: ACETAMINOPHEN 325 MG TABLET 975 MG PO (15:51)
[2024-03-27] MEDS: DOCUSATE SODIUM 100 MG CAPSULE PO ×2 (17:24→20:42)
[2024-03-27] MEDS: OXYCODONE 5 MG TABLET 2.5 MG PO ×2 (17:24→23:20)
[2024-03-27] MEDS: SODIUM CHLORIDE 1 GM TABLET PO (18:42)
--- NOTE | 2024-03-27 19:07 | PC.NURSE ---
0: Alert and orientated and pleasant with cares. Reported moderate pain in RUQ... PRN meds given. PO Na tab was started this evening, up independently in her room. FR remains in place. 250 cc just filled into pitcher. Call light within reach. Marjan PELAEZ BSN
[2024-03-27] MEDS: ENOXAPARIN 40 MG/0.4 ML INJ SUBCUT (20:42)
[2024-03-27] MEDS: ATORVASTATIN 10 MG TABLET PO (20:42)
[2024-03-28] MEDS: OXYCODONE 5 MG TABLET 2.5 MG PO ×2 (03:19→08:40)
[2024-03-28] MEDS: ACETAMINOPHEN 325 MG TABLET 975 MG PO (03:20)
[2024-03-28 03:29] VITALS: BP 135/66; PULSE 76; RESP 18; TEMP 36.8; O2SAT 95
[2024-03-28 06:17] LABS: Basophils Absolute Auto 0.07 K/uL (0.00-0.30); Basophils Percent Auto 1.1 % (0.0-3.0); Eosinophils Percent Auto 11.7 % (0.0-7.0); Hematocrit 31.8 % (33.0-51.0); Hemoglobin* 10.5 gm/dL (12.0-16.0); Immature Granulocytes Abs Auto 0.05 K/uL (0.00-0.30); Immature Granulocytes Pct Auto 0.8 %; Lymphocytes Percent Auto 10.2 % (20-44); Mean Corpuscular HGB Conc 33 gm/dL (32-36); Mean Corpuscular Hemoglobin 29 pg (26-34); Mean Corpuscular Volume 89 fL (80-100); Monocytes Percent Auto 9.7 % (0.0-11.0); Neutrophils Absolute Auto 4.39 K/uL (1.7-7.0); Neutrophils Percent Auto 66.5 % (42.0-72.0); Platelet Count* 394 K/uL (140-440); RDW Coefficient of Variation % 14.2 % (11.5-15.5); Red Blood Count 3.59 m/uL (4.00-5.20); White Blood Count* 6.59 K/uL (4.50-11.00)
[2024-03-28 06:26] LABS: Slide Review Reflex No
[2024-03-28 06:33] LABS: Albumin* 3.4 g/dL (3.3-5.0); Chloride* 92 mmol/L (96-114); Potassium* 3.7 mmol/L (3.6-5.1); Sodium* 125 mmol/L (135-149)
[2024-03-28 06:35] LABS: Creatinine* 0.6 mg/dL (0.5-1.5); Est. Creatinine Clearance* 34.23; Estimated Glomerular Filt Rate 87 ml/min
[2024-03-28 06:36] LABS: Alanine Aminotransferase* 19 U/L (4-35); Alkaline Phosphatase* 90 U/L (40-150); Anion Gap 6 mEq/L (7-15); Aspartate Amino Transferase* 32 U/L (12-35); Bilirubin Total* 0.4 mg/dL (0.1-1.5); Blood Urea Nitrogen* 12 mg/dL (7-30); Carbon Dioxide* 27 mmol/L (20-32); Glucose* 95 mg/dL (60-115); Total Protein* 6.2 g/dL (6.0-8.3)
[2024-03-28 06:37] LABS: Calcium* 8.6 mg/dL (8.4-10.6)
--- NOTE | 2024-03-28 06:53 | PC.NURSE ---
Pt alert, oriented and vitally stable. Pt moves independently, tolerates well. Pt had pain rating 8/10 throughout shift, prn oxycodone and acetaminophen given, pt stated improvement. Pt still on 1500 FR, 260 placed into pitcher.
[2024-03-28] MEDS: SODIUM CHLORIDE 1 GM TABLET PO (07:37)
[2024-03-28 07:42] VITALS: BP 151/72; PULSE 74; RESP 18; TEMP 37.1; O2SAT 90
[2024-03-28 07:44] VITALS: PULSE 74; RESP 18
[2024-03-28] MEDS: PSYLLIUM HUSK (WITH SUGAR) 12 GM PACKET PO (08:40)
[2024-03-28] MEDS: lisinopriL 20 MG TABLET 40 MG PO (08:41)
[2024-03-28] MEDS: AMLODIPINE 10 MG TABLET PO (08:41)
[2024-03-28] MEDS: METOPROLOL SUCCINATE (XL) 100 MG TAB 200 MG PO (08:41)
[2024-03-28] MEDS: SODIUM CHLORIDE 0.9 % (FLUSH) 10 ML SYRINGE 5 ML IVF (08:51)
[2024-03-28] MEDS: ONDANSETRON ODT 4 MG TAB PO (09:21)
--- NOTE | 2024-03-28 09:51 | P.DS_ITS ---
DS: Providers Provider Date Seen: 03/28/24 Date of admission: 03/27/24 08:57 Primary care physician: Angela Mott DO Admitting Clinician: Letty Yeager MD Consults: Nutrition, OT, PT Attending Physician on discharge: Letty Yeager MD Date of Discharge: 03/28/24 DS: Diagnosis Discharge Diagnosis (1) Hyponatremia: Status: Acute Problem details: - hyponatremia, sodium at admission was 123, baseline is around 133 to 138 - asymptomatic, improved to 125 and remained stable (2) Right upper quadrant abdominal pain: Status: Acute Problem details: - likely secondary to the new suspected liver Metastases - CT notes that ddx includes liver abscess; less likely given clinical picture (afebrile status, normal WBC) - Tylenol + low dose Oxycodone for pain management (3) 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 regional lymph nodes (N2b): Status: Acute Problem details: - Colon cancer: T3 N2b M0 stage IIIC, poorly differentiated, DNA mismatch repair enzyme intact, s/p right hemicolectomy and lymph node dissection on 11/12/23 - 12/22/2023: c1d1 Xeloda 1000mg BID one week on 1 week off (4) Uncontrolled hypertension: Status: Chronic Problem details: - BP age appropriate at this time on home doses of lisinopril, Metoprolol, and Amlodipine (5) Hyperlipidemia: Status: Chronic Problem details: - continue home dose of statin (6) GERD (gastroesophageal reflux disease): Status: Chronic Problem details: - continue PPI (7) Transaminitis: Status: Acute Problem details: - mild transaminitis AST elevated at 36, with normal ALT and normal bilirubin, normalized upon d/c - likely related to metastatic colon cancer - outpatient f/u DS: Summary Hospital Course Hospital Course: Sylvia was admitted to the hospital on 03/26 for hyponatremia. Admission sodium 123, asymptomatic. Sodium improved to 125-126, patient tolerating more solute and sodium supplementation. Also noted to have right upper quadrant abdominal pain; imaging on admission revealed progression of metastatic disease (known colon cancer). Pain managed with Tylenol and prn oxycodone. Patient was medically appropriate for discharge home (transport with daughter) on 03/28/2024, she has close follow-up scheduled with Oncology and PCP. Status at Discharge Functional status at discharge: independent ambulation Overall status at discharge: patient is progressing back to baseline Time Spent with Patient Time attestation: Total time spent providing and/or coordinating discharge services: Time spent: Greater than 30 minutes Specific discharge activities: Medication changes in management, updates to patient and daughter Exam Narrative: Exam Narrative: GEN: Alert and oriented, nontoxic HEENT: EOMIs bilaterally, no scleral icterus CV: RRR, No concerning murmurs R: LCTA bilaterally without concerning wheezing, air movement adequate Ab: Soft, mild discomfort of right upper quadrant, no rebound or guarding Ext: wwp, no concerning edema Skin: No concerning skin lesions or rashes on exposed skin Neuro: Nonfocal Psych: Appropriate Const: Vital Signs, click to edit/add: Vital Signs - 24 hr 03/27/24 11:06 03/27/24 15:45 03/27/24 20:04 Temperature 97.8 F 98.3 F 98.0 F Pulse Rate [Left P ulse Oximeter] 66 75 72 Respiratory Rate 22 16 20 Blood Pressure [Ri ght Arm] 122/66 132/78 142/79 H Pulse Oximetry 92 96 94 Oxygen Delivery Me thod Room Air Room Air 03/27/24 23:00 03/27/24 23:13 03/28/24 03:29 Temperature 98.2 F 98.2 F Pulse Rate [Left P ulse Oximeter] 72 72 76 Respiratory Rate 18 18 18 Blood Pressure [Ri ght Arm] 142/79 H 135/66 Pulse Oximetry 93 95 Oxygen Delivery Me thod Room Air Room Air 03/28/24 07:42 03/28/24 07:44 Temperature 98.7 F Pulse Rate [Left P ulse Oximeter] 74 74 Respiratory Rate 18 18 Blood Pressure [Ri ght Arm] 151/72 H Pulse Oximetry 90 Oxygen Delivery Me thod Room Air DS: Data Data Completed and Pending Completed studies during hospitalization: Procedures Excision of Mesenteric Lymphatic, Percutaneous Endoscopic Approach, Diagnostic (11/11/23) Resection of Right Large Intestine, Percutaneous Endoscopic Approach (11/11/23) Labs on day of discharge: Labs from last 24 hours 03/28/24 03/27/24 05:58 13:21 WBC 6.59 RBC 3.59 L Hgb 10.5 L Hct 31.8 L MCV 89 MCH 29 MCHC 33 RDW Coeff of Galo 14.2 Plt Count 394 Neut % (Auto) 66.5 Lymph % (Auto) 10.2 L [place] % (Auto) 9.7 Eos % (Auto) 11.7 H Baso % (Auto) 1.1 Neut # (Auto) 4.39 Lymph # (Auto) 0.70 L [place] # (Auto) 0.60 Eos # (Auto) 0.80 H Baso # (Auto) 0.07 Abs Immat Gran (auto) 0.05 Imm/Tot Granulo (auto) 0.8 Sodium 125 L 125 L Potassium 3.7 Chloride 92 L Carbon Dioxide 27 Anion Gap 6 L BUN 12 Creatinine 0.6 Estimated Creat Clear 34.23 Estimated GFR 87 Glucose 95 Calcium 8.6 Total Bilirubin 0.4 AST 32 ALT 19 Alkaline Phosphatase 90 Total Protein 6.2 Albumin 3.4 Discharge Plan Discharge Disposition: Home, Self-Care Date of Admission: 03/27/24 08:57 Attending Provider on Discharge: Letty Yeager Primary Care Provider: Angela Mott Condition: Stable Anticipated Discharge Date/Time: 03/28/24 09:16 Discharge Medications: New oxycodone 5 mg Tablet 2.5 mg PO Q4H PRNQty: 10 0RF sodium chloride 1,000 mg Tablet,Soluble 1,000 mg PO TIDWM Qty: 30 0RF Continued lisinopril 40 mg tablet 40 mg PO DAILY omeprazole 20 mg capsule,delayed release(DR/EC) 20 mg PO DAILY ferrous sulfate 325 mg (65 mg iron) tablet 65 mg PO DAILY amlodipine 10 mg tablet 10 mg PO DAILY metoprolol succinate 200 mg tablet extended release 24 hr 200 mg PO DAILY atorvastatin 10 mg tablet 10 mg PO HS cholecalciferol (vitamin D3) [Vitamin D3] 25 mcg (1,000 unit) tablet 25 mcg PO DAILY fexofenadine [Allergy Relief (fexofenadine)] 180 mg tablet 180 mg PO DAILY Discharge Orders: Discharge Order (Routine); Ordered 03/28/24 Ordered By: Letty Yeager Patient Education: Oxycodone, Slow Release (By mouth), Sodium Chloride (By mouth), Hyponatremia (GEN) Additional Instructions: Stay on your home medications. NEW MEDS AT [facility]: 1. Sodium tablets: take these 3 times/day with meals. 2. Oxycodone: this is a stronger pain medication that you can take occasionally if Tylenol isn't strong enough. It can cause dizziness and constipation, so monitor side effects closely Activity Level: Activity as Tolerated and No strenuous activity Discharge Diet: Regular Diet Detail: Don't overdo it on water or tea, make sure you're eating protein Follow Up Appointments: Angela Mott DO [Primary Care Provider] - 04/04/24 10:00 am ([facility] for follow-up.) Forms: FolderBoy Info Instructions
--- NOTE | 2024-03-28 10:35 | PC.NURSE ---
Discharge: patient pleasant and cooperative, A&O. VSS, afebrile. SpO2 maintained above 90% on RA. Patient reports pain this shift, managed with PRN medication, see MAR. During breakfast, patient reported some slight nausea, managed with PRN medication, see MAR. 1500 FR. Patient independent in room this shift with walker. IV removed with tip intact. Discharge instructions provided, all questions answered. Discharged to home at 1030.
== END 2024-03-28 10:30 | disposition home or self-care (01) | DRG 641 ==
LOC: ED 13:51 → MEDSURG 14:27
PROVIDERS: Student in an Organized Health Care Education/Training Program; Admitting Provider Family Medicine; Emergency Provider Student in an Organized Health Care Education/Training Program; PCP Family Medicine; Visit Provider Family Medicine
DX: E87.1 Hypo-osmolality and hyponatremia (principal); C18.9 Malignant neoplasm of colon, unspecified; C77.9 Secondary and unspecified malignant neoplasm of lymph node, unspecified; C78.7 Secondary malignant neoplasm of liver and intrahepatic bile duct; R91.1 Solitary pulmonary nodule; I10 Essential (primary) hypertension; E78.5 Hyperlipidemia, unspecified; K21.9 Gastro-esophageal reflux disease without esophagitis; R74.01 Elevation of levels of liver transaminase levels; R10.11 Right upper quadrant pain; S32.030D Wedge compression fracture of third lumbar vertebra, subsequent encounter for fracture with routine healing
CPT/HCPCS: 36415; 74177; 80048; 80053; 81001; 82565; 83690; 83735; 84295; 84484; 85025; 87631; 93005; 97161; 97165; 97535; 99284; 99285; A9270; G0378; J1650; J7030; Q9967

== ENCOUNTER 2024-03-30 15:20 | Outpatient (CLI) | payer MEDICARE, BC, SELFPAY ==
--- NOTE | 2024-03-30 15:30 | PE_ITS ---
[facility] [address] [facility] [address] Phone:?[phone] Fax:?[phone] Referring Physician Information: Bianca Christianson PA-C [address] [facility] [address] Phone:?[phone] Fax:?[phone] Patient:Julian Beck D.O.B:?[id number] Sex:?Female Phone:?[phone] [facility] MRN:?[id number] Exam Date:?03/30/2024 EXAM: PET/CT EYES TO THIGHS, CANCER RESTAGING CLINICAL INFORMATION: Colon cancer staging. TECHNICAL INFORMATION: Helical acquisition of data was obtained from the orbits to the upper thighs with reconstruction of 3.75 mm thick images at 3.[address] data was used for attenuation correction. PET scanning was performed through the same anatomic range 64 minutes following administration of 10.89 mCi of 18-FDG delivered intravenously. The patient's glucose at the time of the injection was 102 mg/dL. PET, CT and PET/CT fusion images are interpreted using a computer viewing workstation. PET, CT and PET/CT fusion images were archived and saved in the patient's permanent medical record. COMPARISON: CTs from 03/26/2024 and 02/25/2024. INTERPRETATION: Head and Neck: There are no abnormal hypermetabolic foci within the head or neck. There is physiologic uptake in the intracranial soft tissues. Chest: Large right pleural effusion with associated eccentric focus of hypermetabolism (Se 2 Im 135, SUVmax = 6.04). Trace left pleural effusion. Suspected abnormal left internal mammary lymph node (Se 2 Im 91) measures 1.2 x 0.6 cm maximum SUV of 12.74. There are no other abnormal hypermetabolic foci within the chest. Background mediastinal blood pool uptake has a maximum SUV of 2.11. No lung nodules or masses detected on this free-breathing exam. Abdomen and Pelvis: There is hypermetabolic (SUVmax = 10.02) subcapsular fluid along the liver contour, with associated scalloping effect on the underlying parenchyma. Hypermetabolic omental nodule (Se 2 Im 156) measures 1.6 x 1.0 cm with a maximum SUV of 6.73. A few additional omental nodules show similar FDG uptake (e.g., Se 2 Im 155, SUVmax = 4.89). Extensive peritoneal nodularity and mild associated ascites, likely malignant given findings elsewhere. Aortocaval node (Se 2 Im 165) measures 1.9 x 1.8 cm with maximum SUV of 6.72. Mesenteric node (Se 2 Im 168) measures 1.6 x 1.3 cm with maximum SUV of 11.19. Right hemicolectomy noted. Background hepatic parenchymal uptake has a maximum SUV of 2.45. There is physiologic excretion of radiotracer in the urine and bowel. Skeleton, Musculature, and Integument: No abnormal hypermetabolic foci within the skeleton. No nilson osteoblastic or osteolytic disease. CONCLUSION: * Status post right hemicolectomy. * Malignant lymphadenopathy involves the mesentery and retroperitoneum. * Mild ascites with hypermetabolic omental and peritoneal nodularity, in keeping with carcinomatosis. * Large right pleural effusion, likely malignant. Consider diagnostic and therapeutic thoracentesis. * Trace left pleural effusion, indeterminate. * Hypermetabolic left internal mammary node, likely metastatic. Electronically signed on 03/31/2024 4:39:00 PM by Moris Kenny M.D.
== END 2024-03-30 15:21 | disposition home or self-care (01) ==
LOC: RAD 15:21
PROVIDERS: PCP Family Medicine; Visit Provider Physician Assistant
DX: C18.2 Malignant neoplasm of ascending colon (principal); C77.2 Secondary and unspecified malignant neoplasm of intra-abdominal lymph nodes; J90 Pleural effusion, not elsewhere classified
CPT/HCPCS: 78815; A9552

== ENCOUNTER 2024-04-10 13:00 | Outpatient (RCR) | payer MEDICARE, BC, SELFPAY ==
--- NOTE | 2023-12-06 12:23 | ONC.NURNOTE ---
Met with patient and her 2 daughters to discuss next steps for capecitabine patient does not have a computer at home- so RX will be sent to [facility] if out of pocket costs are high then the back up plan is to use [facility] where the monthly cost will be around $30 including shipping- but one of the daughters would need to manage the RX ordering via an arron Teaching date set up for 12/17/23 with planned start date on the next Wednesday- both daughters want to be able to be present for the teaching- one lives in town and one by telephone call in appts for lab and provider follow up is pending jeramy dickinsont date is confirmed
--- NOTE | 2023-12-07 12:50 | ONC.NURNOTE ---
Capecitabine- no PA needed copay $22/month patient notified- to set up delivery discussed option of earlier start date- patient to discuss with daughter
--- NOTE | 2023-12-17 11:04 | ONC.NURNOTE ---
Terry daughter Carmita phoned and was not able to come in with her mother for previously scheduled capecitabine teaching for today and lab work appt rescheduled for 12/21/23 when Digna comes in for MRI/CT Scan will have lab draw and teaching same day
[2023-12-21 08:48] LABS: Basophils Absolute Auto 0.07 K/uL (0.00-0.30); Basophils Percent Auto 1.1 % (0.0-3.0); Eosinophils Percent Auto 7.1 % (0.0-7.0); Hemoglobin* 12.2 gm/dL (12.0-16.0); Immature Granulocytes Abs Auto 0.01 K/uL (0.00-0.30); Immature Granulocytes Pct Auto 0.2 %; Lymphocytes Percent Auto 18.2 % (20-44); Mean Corpuscular HGB Conc 31 gm/dL (32-36); Mean Corpuscular Hemoglobin 28 pg (26-34); Mean Corpuscular Volume 89 fL (80-100); Monocytes Percent Auto 6.9 % (0.0-11.0); Neutrophils Absolute Auto 4.44 K/uL (1.7-7.0); Neutrophils Percent Auto 66.5 % (42.0-72.0); Platelet Count* 349 K/uL (140-440); RDW Coefficient of Variation % 15.7 % (11.5-15.5); White Blood Count* 6.66 K/uL (4.50-11.00)
[2023-12-21 08:52] LABS: Slide Review Reflex No
[2023-12-21 09:00] LABS: Albumin* 4.5 g/dL (3.3-5.0)
[2023-12-21 09:01] LABS: Chloride* 103 mmol/L (96-114); Potassium* 3.9 mmol/L (3.6-5.1); Sodium* 139 mmol/L (135-149)
[2023-12-21 09:03] LABS: Anion Gap 7 mEq/L (7-15); Aspartate Amino Transferase* 25 U/L (12-35); Bilirubin Total* 0.8 mg/dL (0.1-1.5); Carbon Dioxide* 29 mmol/L (20-32); Creatinine* 0.8 mg/dL (0.5-1.5); Est. Creatinine Clearance* 31.35; Estimated Glomerular Filt Rate 71 ml/min; Total Protein* 7.5 g/dL (6.0-8.3)
[2023-12-21 09:04] LABS: Alanine Aminotransferase* 16 U/L (4-35); Alkaline Phosphatase* 74 U/L (40-150); Blood Urea Nitrogen* 11 mg/dL (7-30); Calcium* 9.6 mg/dL (8.4-10.6); Glucose* 110 mg/dL (60-115)
--- NOTE | 2023-12-21 12:57 | ONC.NURNOTE ---
PSDS = 5 patient declined a referral to [facility] discussed referral to option to [facility] for change in physical ability and taking care of self (marked on the N[facility] Distress Screening) at this time Digna declined all referrals
--- NOTE | 2023-12-21 13:01 | ONC.NURNOTE ---
Teaching with patient and her daughter Carmita on new start Capecitabine reviewed contents of New Treatment Binder- reviewed possible side effects, management of side effects, going in to ER if fever over 100.4, calling with any changes or concerns, discussed dosing and schedule, using the teachback method reviewed safe handling and disposal, ordering next doses MATEO reviewed and signed questions addressed
--- NOTE | 2023-12-24 13:41 | ONC.NURNOTE ---
Addendum entered by Gill Husain RN 12/27/23 13:49: Spoke to pt today, she is taking the capecitabine correctly. Pt has not noticed any side effects so far, pt instructed to call [facility] if she has any questions or concerns. Addendum entered by Adriane Tracy RN 12/24/23 15:38: Attempted to call patient at 1530 but received busy signal right away so called Daughter's phone and her gave me a cell phone number to try---[phone] When calling this number received a voicemail message so message left for patient to call back if she can. Original Note: Environmental Scientist attempted to call pt to check in after starting capecitabine, however, phone is busy. Will have nursing call again this afternoon.
--- NOTE | 2023-12-30 10:07 | ONC.NURNOTE ---
Capecitabine tolerance follow up call; Digna has completed 1st 7 days of capecitabine on Wednesday and is now on a 1 week off until restarting next Wednesday She correctly reports dosing schedule has our magnet on her refrigerator with phone #'s keeping a calendar of her medication schedule moving bowels 1-2 times/day soft and formed asked about taking miralax and omeprazole- her daughter was talking about these medications- both are compatable with cape- however miralax is not recommended due to regular stools and at risk for diarrhea patient denies any stomach issues or reflux
--- NOTE | 2024-01-13 13:28 | ONC.NURNOTE ---
capecitabine script Called Ms. Beck and confirmed that she is off of her capecitabine (xeloda) until next Wednesday, when she starts her next 7 days of therapy. She is also coming in for follow up appointment and lab work on 01/17/24. She confirms that she has not yet received her next script for xeloda and has just a couple of tabs from her previous script. She gets most of her scripts from [facility] retail pharmacy and expected that xeloda would come from there. I explained that her xeloda is coming from [facility]. I had received a call from [facility] that they had talked to her to schedule delivery and she was confused about this. She was able t to read the label on her previous script which was also frmo [facility] and was agreeable to having it be sent from them. I confirmed with her that they would be calling her back to confirm delivery. I contacted Moirs from [facility] pharmacy who confirms that she will be scheduled to receive her medication on 01/14/24 to be resumed next week wednesday. Pt is agreeable to this and is asked to confirm receipt of drug on Wednesday01/17/24 when she comes to our clinic for lab work and provider visit.
[2024-01-17 09:37] LABS: Basophils Absolute Auto 0.05 K/uL (0.00-0.30); Basophils Percent Auto 1.1 % (0.0-3.0); Eosinophils Absolute Auto 0.27 K/uL (0.00-0.50); Eosinophils Percent Auto 5.9 % (0.0-7.0); Hemoglobin* 12.2 gm/dL (12.0-16.0); Immature Granulocytes Abs Auto 0.01 K/uL (0.00-0.30); Immature Granulocytes Pct Auto 0.2 %; Lymphocytes Absolute Auto 1.25 K/uL (0.90-2.90); Lymphocytes Percent Auto 27.3 % (20-44); Mean Corpuscular HGB Conc 31 gm/dL (32-36); Mean Corpuscular Hemoglobin 29 pg (26-34); Mean Corpuscular Volume 92 fL (80-100); Monocytes Percent Auto 8.3 % (0.0-11.0); Neutrophils Absolute Auto 2.62 K/uL (1.7-7.0); Neutrophils Percent Auto 57.2 % (42.0-72.0); Platelet Count* 316 K/uL (140-440); Red Blood Count 4.23 m/uL (4.00-5.20); White Blood Count* 4.58 K/uL (4.50-11.00)
[2024-01-17 09:45] LABS: Slide Review Reflex No
[2024-01-17 09:58] LABS: Albumin* 4.6 g/dL (3.3-5.0); Chloride* 102 mmol/L (96-114); Potassium* 3.8 mmol/L (3.6-5.1); Sodium* 138 mmol/L (135-149)
[2024-01-17 10:00] LABS: Creatinine* 0.8 mg/dL (0.5-1.5); Est. Creatinine Clearance* 31.35; Estimated Glomerular Filt Rate 71 ml/min
[2024-01-17 10:01] LABS: Alanine Aminotransferase* 21 U/L (4-35); Alkaline Phosphatase* 58 U/L (40-150); Anion Gap 6 mEq/L (7-15); Aspartate Amino Transferase* 32 U/L (12-35); Bilirubin Total* 0.7 mg/dL (0.1-1.5); Blood Urea Nitrogen* 10 mg/dL (7-30); Carbon Dioxide* 30 mmol/L (20-32); Glucose* 104 mg/dL (60-115); Total Protein* 7.6 g/dL (6.0-8.3)
[2024-01-17 10:02] LABS: Calcium* 9.7 mg/dL (8.4-10.6)
--- NOTE | 2024-01-17 12:52 | ONC.NURNOTE ---
Pt seen in clinic today. When updating medication list, pt unsure if taking xarelto and Ibandronate. Pt was seen by her store clerk cashier-Dr. Mott on 01/10/24. Xarelto and Ibandronate are not on her med list through her primary care at [facility]. Left message with pt to call [facility] with this update.
[2024-02-14 09:03] LABS: Basophils Absolute Auto 0.08 K/uL (0.00-0.30); Basophils Percent Auto 1.1 % (0.0-3.0); Eosinophils Absolute Auto 0.51 K/uL (0.00-0.50); Hematocrit 39.9 % (33.0-51.0); Hemoglobin* 12.7 gm/dL (12.0-16.0); Immature Granulocytes Abs Auto 0.02 K/uL (0.00-0.30); Immature Granulocytes Pct Auto 0.3 %; Lymphocytes Percent Auto 19.7 % (20-44); Mean Corpuscular HGB Conc 32 gm/dL (32-36); Mean Corpuscular Hemoglobin 30 pg (26-34); Mean Corpuscular Volume 94 fL (80-100); Monocytes Percent Auto 7.3 % (0.0-11.0); Neutrophils Percent Auto 64.6 % (42.0-72.0); Platelet Count* 337 K/uL (140-440); RDW Coefficient of Variation % 16.4 % (11.5-15.5); Red Blood Count 4.26 m/uL (4.00-5.20); White Blood Count* 7.27 K/uL (4.50-11.00)
[2024-02-14 09:23] LABS: Chloride* 100 mmol/L (96-114); Potassium* 3.7 mmol/L (3.6-5.1); Sodium* 138 mmol/L (135-149)
[2024-02-14 09:25] LABS: Est. Creatinine Clearance* 29.91; Estimated Glomerular Filt Rate 55 ml/min
[2024-02-14 09:26] LABS: Alanine Aminotransferase* 23 U/L (4-35); Alkaline Phosphatase* 72 U/L (40-150); Anion Gap 10 mEq/L (7-15); Aspartate Amino Transferase* 36 U/L (12-35); Bilirubin Total* 0.6 mg/dL (0.1-1.5); Blood Urea Nitrogen* 16 mg/dL (7-30); Carbon Dioxide* 28 mmol/L (20-32); Glucose* 100 mg/dL (60-115); Total Protein* 8.5 g/dL (6.0-8.3)
[2024-02-14 09:27] LABS: Calcium* 10.1 mg/dL (8.4-10.6)
[2024-02-15 14:49] LABS: Slide Review Reflex No
[2024-02-15 23:51] LABS: Carcinoembryonic Antigen 3.9 ng/mL
--- NOTE | 2024-03-02 15:20 | PC.NURSE ---
Pt's daughter Carmita ([phone]) called [facility] looking for LATANYA Shaikhbookkeeping assistant regarding transportation to an appointment at [facility] tomorrow. Carmita is uncertain what the appointment is, what time it is, and what the transportation options are. Will request that LATANYA Shaikh call Carmita back today to discuss.
--- NOTE | 2024-03-03 13:37 | ONC.NURNOTE ---
Carmita phoned back today: she was following up on a question about an appt she thought her mom had today reviewed next appts here with DR Hoyt and reminded her that there was a referral placed to [place] for neurology consult- date and time are pending discussed a few options for Carmita to look into for transportation call her moms insurance co to see if they have reimbursement for medical transport RICHA has transport based out of [place]- $ [address] [facility] may have volunteer drivers Check with moms [employer] other friends
[2024-03-13 10:02] LABS: Basophils Absolute Auto 0.08 K/uL (0.00-0.30); Basophils Percent Auto 1.1 % (0.0-3.0); Eosinophils Percent Auto 14.2 % (0.0-7.0); Hematocrit 39.3 % (33.0-51.0); Hemoglobin* 12.4 gm/dL (12.0-16.0); Immature Granulocytes Abs Auto 0.01 K/uL (0.00-0.30); Immature Granulocytes Pct Auto 0.1 %; Lymphocytes Percent Auto 11.3 % (20-44); Mean Corpuscular HGB Conc 32 gm/dL (32-36); Mean Corpuscular Hemoglobin 30 pg (26-34); Mean Corpuscular Volume 95 fL (80-100); Monocytes Percent Auto 7.3 % (0.0-11.0); Neutrophils Absolute Auto 4.67 K/uL (1.7-7.0); Platelet Count* 324 K/uL (140-440); RDW Coefficient of Variation % 14.8 % (11.5-15.5); Red Blood Count 4.16 m/uL (4.00-5.20); White Blood Count* 7.09 K/uL (4.50-11.00)
[2024-03-13 10:03] LABS: Slide Review Reflex No
[2024-03-13 10:19] LABS: Albumin* 4.6 g/dL (3.3-5.0); Chloride* 98 mmol/L (96-114); Sodium* 138 mmol/L (135-149)
[2024-03-13 10:20] LABS: Potassium* 3.8 mmol/L (3.6-5.1)
[2024-03-13 10:22] LABS: Alanine Aminotransferase* 29 U/L (4-35); Alkaline Phosphatase* 83 U/L (40-150); Anion Gap 12 mEq/L (7-15); Aspartate Amino Transferase* 37 U/L (12-35); Bilirubin Total* 0.7 mg/dL (0.1-1.5); Blood Urea Nitrogen* 11 mg/dL (7-30); Calcium* 9.9 mg/dL (8.4-10.6); Carbon Dioxide* 28 mmol/L (20-32); Creatinine* 0.8 mg/dL (0.5-1.5); Est. Creatinine Clearance* 29.91; Estimated Glomerular Filt Rate 71 ml/min; Glucose* 119 mg/dL (60-115); Total Protein* 7.8 g/dL (6.0-8.3)
[2024-04-10 12:34] LABS: Basophils Absolute Auto 0.06 K/uL (0.00-0.30); Basophils Percent Auto 0.7 % (0.0-3.0); Eosinophils Absolute Auto 0.12 K/uL (0.00-0.50); Eosinophils Percent Auto 1.4 % (0.0-7.0); Hematocrit 41.2 % (33.0-51.0); Hemoglobin* 13.3 gm/dL (12.0-16.0); Immature Granulocytes Abs Auto 0.03 K/uL (0.00-0.30); Immature Granulocytes Pct Auto 0.4 %; Lymphocytes Percent Auto 6.2 % (20-44); Mean Corpuscular HGB Conc 32 gm/dL (32-36); Mean Corpuscular Hemoglobin 28 pg (26-34); Mean Corpuscular Volume 87 fL (80-100); Monocytes Percent Auto 5.8 % (0.0-11.0); Neutrophils Percent Auto 85.5 % (42.0-72.0); Platelet Count* 550 K/uL (140-440); RDW Coefficient of Variation % 14.4 % (11.5-15.5); Red Blood Count 4.72 m/uL (4.00-5.20); White Blood Count* 8.45 K/uL (4.50-11.00)
[2024-04-10 12:39] LABS: Slide Review Reflex No
[2024-04-10 12:58] LABS: Albumin* 3.8 g/dL (3.3-5.0); Chloride* 90 mmol/L (96-114)
[2024-04-10 12:59] LABS: Potassium* 4.9 mmol/L (3.6-5.1); Sodium* 126 mmol/L (135-149)
[2024-04-10 13:01] LABS: Anion Gap 10 mEq/L (7-15); Aspartate Amino Transferase* 46 U/L (12-35); Bilirubin Total* 0.8 mg/dL (0.1-1.5); Carbon Dioxide* 26 mmol/L (20-32); Creatinine* 0.6 mg/dL (0.5-1.5); Est. Creatinine Clearance* 29.91; Estimated Glomerular Filt Rate 87 ml/min; Total Protein* 6.8 g/dL (6.0-8.3)
[2024-04-10 13:02] LABS: Alanine Aminotransferase* 23 U/L (4-35); Alkaline Phosphatase* 107 U/L (40-150); Blood Urea Nitrogen* 21 mg/dL (7-30); Calcium* 9.5 mg/dL (8.4-10.6); Glucose* 107 mg/dL (60-115)
== END 2024-04-22 23:59 | disposition home or self-care (01) ==
LOC: CCIC 13:00
PROVIDERS: Physician Assistant; PCP Family Medicine; Referring Provider Family Medicine; Visit Provider Internal Medicine Hematology & Oncology
DX: C18.9 Malignant neoplasm of colon, unspecified (principal); C78.7 Secondary malignant neoplasm of liver and intrahepatic bile duct; Z91.89 Other specified personal risk factors, not elsewhere classified
CPT/HCPCS: 36415; 71260; 74183; 80053; 82378; 85025; 99202; 99205; 99211; 99213; 99215; G0463; A9575; Q9967